=== PATIENT | female | born 1995 | race Caucasian/White ===

== ENCOUNTER → 2022-11-10 | Outpatient (CLI) | payer SELFPAY ==
--- NOTE | 2022-11-10 18:03 | US_ITS ---
STUDY: FIRST TRIMESTER OBSTETRICAL ULTRASOUND REASON FOR EXAM: Female, 27 years old VIABILITY- heavy bleeding with clots LMP: September 08, 2022 TECHNIQUE: Transvaginal TECHNICAL QUALITY: Adequate. PRIOR ULTRASOUND: None. FINDINGS: There is no demonstrated intrauterine gestational sac. There is no demonstrated yolk sac. The placenta is non-visualized. There is no demonstrated embryo ( pole). The estimated gestation age (EGA) by LMP is 9 weeks, 0 days. The estimated date of delivery (SREEKANTH) by LMP is June 15, 2023. The uterus measures 10.6 x 4.9 x 4.5 cm. There is no demonstrated uterine fibroid. The cervix is closed. The right ovary measures 2.9 x 1.9 x 1.5 cm. There is no right ovarian cyst. There is no visualized right adnexal mass or complex lesion. The left ovary measures 3.8 x 2.3 x 1.6 cm. There is 1.9 cm cyst. There is no visualized left adnexal mass or complex lesion. There is mild fluid in the cul de sac. US/Transvaginal w/Preg US IMPRESSION: No intrauterine gestation seen. Left ovarian cyst. Mild free fluid. Electronically Signed: Driss Gifford MD at 18:51 EST ,
[2022-11-10 18:11] LABS: Absolute Lymphocyte Count 1.28 X10^3/uL (0.83-4.51); Absolute Neutrophil Count 10.7 X10^3/uL (2.0-7.7); Basophil# 0.04 X10^3/uL; Basophil% 0.3 % (0-1); Eosinophil# 0.08 X10^3/uL; Eosinophils% 0.6 % (0-5); Hematocrit 39.9 % (37-47); Hemoglobin 13.8 g/dL (12.0-15.0); Lymphocyte # 1.28 X10^3/ul (0.83-4.51); Mean Corp Hgb Conc 34.6 g/dL (32-36); Mean Corpuscular Volume 83.8 fL (81-99); Mean Platelet Vol. 10.5 fl (6.2-12.0); Monocyte# 0.69 X10^3/uL; Monocyte% 5.4 % (0-10); NRBC Flagged by Analyzer 0 % (0-5); Neutrophil # 10.67 X10^3/uL (2.7-7.7); Neutrophil % 83.3 % (47-70); Platelet Count 296 K/mm3 (150-450); RBC Distribution Width CV 12.1 % (11.6-14.6); RBC Distribution Width SD 36.8 fl (35.1-43.9); Red Blood Count 4.76 M/mm3 (4.2-5.4); White Blood Count 12.8 K/mm3 (4.4-11.0)
[2022-11-10 19:20] LABS: hCG Titer Quant., Serum 5855 mIU/mL (1-3)
== END | disposition home or self-care (01) ==
PROVIDERS: Visit Provider Obstetrics & Gynecology
DX: Z34.90 Encounter for supervision of normal pregnancy, unspecified, unspecified trimester (principal); N83.202 Unspecified ovarian cyst, left side
CPT/HCPCS: 36415; 76817; 84702; 85025; 86850; 86900; 86901

== ENCOUNTER → 2022-11-12 | Outpatient (CLI) | payer SELFPAY ==
[2022-11-12 23:01] LABS: hCG Titer Quant., Serum 1280 mIU/mL (1-3)
== END | disposition home or self-care (01) ==
LOC: LAB 19:15
PROVIDERS: Visit Provider Obstetrics & Gynecology
DX: O03.9 Complete or unspecified spontaneous abortion without complication (principal)
CPT/HCPCS: 36415; 84702

== ENCOUNTER → 2022-11-20 | Outpatient (CLI) | payer SELFPAY ==
[2022-11-20 16:30] LABS: hCG Titer Quant., Serum 48 mIU/mL (1-3)
== END | disposition home or self-care (01) ==
PROVIDERS: Referring Provider Obstetrics & Gynecology; Visit Provider Obstetrics & Gynecology
DX: O03.9 Complete or unspecified spontaneous abortion without complication (principal)
CPT/HCPCS: 36415; 84702

== ENCOUNTER → 2023-03-17 | Outpatient (CLI) | payer SELFPAY ==
[2023-03-17 13:32] LABS: Absolute Lymphocyte Count 1.32 X10^3/uL (0.83-4.51); Absolute Neutrophil Count 5.6 X10^3/uL (2.0-7.7); Basophil# 0.03 X10^3/uL; Basophil% 0.4 % (0-1); Eosinophil# 0.09 X10^3/uL; Eosinophils% 1.2 % (0-5); Hematocrit 36.2 % (37-47); Hemoglobin 12.1 g/dL (12.0-15.0); Lymphocyte # 1.32 X10^3/ul (0.83-4.51); Lymphocyte % 17.5 % (19-41); Mean Corp Hgb Conc 33.4 g/dL (32-36); Mean Corpuscular Hgb 28.9 pg (27.0-32.0); Mean Corpuscular Volume 86.4 fL (81-99); Mean Platelet Vol. 11.4 fl (6.2-12.0); Monocyte# 0.46 X10^3/uL; Monocyte% 6.1 % (0-10); NRBC Flagged by Analyzer 0 % (0-5); Neutrophil % 74.1 % (47-70); Platelet Count 255 K/mm3 (150-450); RBC Distribution Width CV 12.4 % (11.6-14.6); RBC Distribution Width SD 38.8 fl (35.1-43.9); Red Blood Count 4.19 M/mm3 (4.2-5.4); White Blood Count 7.6 K/mm3 (4.4-11.0)
[2023-03-17 14:36] LABS: HIV - WCH Non-Reactive (Nonreactive); Hepatitis B Surface Antigen Non-Reactive (Nonreactive); Hepatitis C Antibody Non-Reactive (Nonreactive); Rubella IgG Reactive (Nonreactive); Syphilis Antibodies Non-reactive
[2023-03-20 12:08] LABS: Chlamydia By Nucleic Acid AMP Negative (Negative); Gonococcus By Nucleic Acid AMP Negative (Negative)
== END | disposition home or self-care (01) ==
LOC: PAVLAB 12:36 → LAB 12:59
PROVIDERS: Referring Provider Advanced Practice Midwife; Visit Provider Advanced Practice Midwife
DX: O09.90 Supervision of high risk pregnancy, unspecified, unspecified trimester (principal); Z34.90 Encounter for supervision of normal pregnancy, unspecified, unspecified trimester
CPT/HCPCS: 36415; 85025; 86703; 86762; 86780; 86803; 86850; 86900; 86901; 87086; 87088; 87340; 87491; 87591

== ENCOUNTER → 2023-04-16 | Outpatient (CLI) | payer SELFPAY | END | disposition home or self-care (01) | LOC: LABSPEC 12:21 | PROVIDERS: Referring Provider Advanced Practice Midwife; Visit Provider Advanced Practice Midwife | DX: Z34.90 Encounter for supervision of normal pregnancy, unspecified, unspecified trimester (principal) | CPT/HCPCS: 87070; 87205 ==

== ENCOUNTER → 2023-05-11 | Outpatient (CLI) | payer SELFPAY ==
--- NOTE | 2023-05-11 12:21 | US_ITS ---
INDICATION: anatomy scan EXAMINATION: Ultrasound US OB Greater Than 14 Weeks TECHNIQUE: Transabdominal and endovaginal pelvic ultrasound was performed. COMPARISON: First trimester OB ultrasound November 10, 2022 LMP: September 08, 2022 per prior study. Beta-hCG: Unknown. Provided EGA: October 05, 2023 FINDINGS: INTRAUTERINE GESTATION(s): Single. ESTIMATED GESTATIONAL AGE: 18 weeks, 3 days ESTIMATED DUE DATE (SREEKANTH): October 09, 2023 HEART MOTION is 141 bpm. ESTIMATED WEIGHT: 241 g, +/- 36 g. Percentile 18.7%. BIOPHYSICAL PROFILE (BPP): Not assessed. PRESENTATION: Cephalic PLACENTA: Anterior. There is no placenta previa or abruption. CERVIX: The cervix is closed. Cervical length is 4.5 cm. MATERNAL OVARIES: No adnexal masses. FREE FLUID: None. IMPRESSION: 1. Single live intrauterine in cephalic presentation at this late gestational age of 18 weeks, 3 days. Estimated date of delivery by today''s study is October 09, 2023. 2. Visually normal amniotic fluid volume. 3. Anterior grade 0-1 placenta is not low lying. 4. The cervix is closed. Cervical length is 4.5 cm. 5. Estimated weight is 241 g. Electronically Signed: Enrique Dalton MD at 16:16 EDT Reading Location ID and State: [id number] / Unknown , Service support , INDICATION: anatomy scan EXAMINATION: Ultrasound US OB Greater Than 14 Weeks TECHNIQUE: Transabdominal and endovaginal pelvic ultrasound was performed. COMPARISON: First trimester OB ultrasound November 10, 2022 LMP: September 08, 2022 per prior study. Beta-hCG: Unknown. Provided EGA: October 05, 2023 FINDINGS: INTRAUTERINE GESTATION(s): Single. ESTIMATED GESTATIONAL AGE: 18 weeks, 3 days ESTIMATED DUE DATE (SREEKANTH): October 09, 2023 HEART MOTION is 141 bpm. ESTIMATED WEIGHT: 241 g, +/- 36 g. Percentile 18.7%. BIOPHYSICAL PROFILE (BPP): Not assessed. PRESENTATION: Cephalic PLACENTA: Anterior. There is no placenta previa or abruption. CERVIX: The cervix is closed. Cervical length is 4.5 cm. MATERNAL OVARIES: No adnexal masses. FREE FLUID: None. US/OB Anatomy Scan
== END | disposition home or self-care (01) ==
PROVIDERS: Referring Provider Advanced Practice Midwife; Visit Provider Advanced Practice Midwife
DX: O09.92 Supervision of high risk pregnancy, unspecified, second trimester (principal); Z3A.18 18 weeks gestation of pregnancy
CPT/HCPCS: 76805; 76817

== ENCOUNTER → 2023-07-15 | Outpatient (CLI) | payer SELFPAY ==
[2023-07-15 09:47] LABS: Absolute Lymphocyte Count 1.17 X10^3/uL (0.83-4.51); Absolute Neutrophil Count 7.2 X10^3/uL (2.0-7.7); Basophil# 0.04 X10^3/uL; Basophil% 0.4 % (0-1); Eosinophil# 0.13 X10^3/uL; Eosinophils% 1.4 % (0-5); Hematocrit 32.9 % (37-47); Hemoglobin 11.2 g/dL (12.0-15.0); Lymphocyte # 1.17 X10^3/ul (0.83-4.51); Lymphocyte % 12.8 % (19-41); Mean Corpuscular Hgb 30.4 pg (27.0-32.0); Mean Corpuscular Volume 89.2 fL (81-99); Mean Platelet Vol. 10.5 fl (6.2-12.0); Monocyte% 5.5 % (0-10); NRBC Flagged by Analyzer 0 % (0-5); Platelet Count 198 K/mm3 (150-450); RBC Distribution Width CV 13.1 % (11.6-14.6); Red Blood Count 3.69 M/mm3 (4.2-5.4); White Blood Count 9.1 K/mm3 (4.4-11.0)
[2023-07-15 10:11] LABS: Glucose Challenge Gest 1H 50g 111 mg/dL (70-140)
[2023-07-15 10:47] LABS: HIV - WCH Non-Reactive (Nonreactive); Syphilis Antibodies Non-reactive
== END | disposition home or self-care (01) ==
LOC: PAVLAB 09:17
PROVIDERS: Referring Provider Obstetrics & Gynecology; Visit Provider Obstetrics & Gynecology
DX: O09.90 Supervision of high risk pregnancy, unspecified, unspecified trimester (principal); Z3A.00 Weeks of gestation of pregnancy not specified
CPT/HCPCS: 36415; 82950; 85025; 86703; 86780

== ENCOUNTER → 2023-09-13 | Outpatient (CLI) | payer SELFPAY | END | disposition home or self-care (01) | LOC: LABSPEC 13:40 | PROVIDERS: Referring Provider Obstetrics & Gynecology; Visit Provider Obstetrics & Gynecology | DX: O09.90 Supervision of high risk pregnancy, unspecified, unspecified trimester (principal); Z3A.00 Weeks of gestation of pregnancy not specified | CPT/HCPCS: 87081 ==

== ENCOUNTER → 2023-09-21 | Outpatient (CLI) | payer SELFPAY ==
--- NOTE | 2023-09-21 11:03 | US_ITS ---
STUDY: SECOND AND THIRD TRIMESTER OBSTETRICAL ULTRASOUND REASON FOR EXAM: Female, 27 years old growth LMP: December 29, 2022. TECHNIQUE: Transabdominal TECHNICAL QUALITY: Adequate. PRIOR ULTRASOUND: Comparison is made with prior study dated May 11, 2023. FINDINGS: There is a single intrauterine fetus. The fetus is in a cephalic presentation. There is demonstrated cardiac activity with a heart rate of 171 bpm. There is a normal amniotic fluid volume. The largest amniotic fluid pocket measures 6 cm. The amniotic fluid index (TEENA) is 15.4 cm. The placenta is anterior in location and is not low lying. There are Grade 1 placental changes. The cervix was not measured due to head position The adnexal regions are not visualized. BIOMETRY: BPD: 9.13 cm: 37 weeks, 0 days HC: 33 cm: 37 weeks, 4 days AC: 33.1 cm: 37 weeks, 0 days FL: 7 cm: 36 weeks, 0 days CI: 79.2% FL/BPD: 76.8% FL/HC: FL/AC: 21.2% HC/AC: 1 age by current US: 36 weeks, 6 days. SREEKANTH by current US: October 13, 2023. Estimated weight: 3052 grams, +/- 458 grams, 33.4 %. Age by LMP: 38 weeks, 0 days. SREEKANTH by LMP: October 05, 2023. US/OB Limited With Biometrics IMPRESSION: Single live intrauterine gestation with mean gestational age of 36 weeks and 6 days. Electronically Signed: Peña Hardin MD at 15:14 EST ,
== END | disposition home or self-care (01) ==
LOC: US 11:02
PROVIDERS: Referring Provider Obstetrics & Gynecology; Visit Provider Obstetrics & Gynecology
DX: O26.849 Uterine size-date discrepancy, unspecified trimester (principal); Z3A.00 Weeks of gestation of pregnancy not specified
CPT/HCPCS: 76816

== ENCOUNTER 2023-10-11 09:30 | Inpatient (IN) | payer SELFPAY ==
[2023-10-11] VITALS (15 sets, daily range): BP systolic 112–137; BP diastolic 63–90; PULSE 62–88; RESP 16; TEMP 36.3–36.6; O2SAT 97–99; BMI 27.9
[2023-10-11] MEDS: Lactated Ringers 1,000 ML 200 ML IV (10:00)
[2023-10-11 10:26] LABS: Absolute Lymphocyte Count 1.13 X10^3/uL (0.83-4.51); Absolute Neutrophil Count 10.1 X10^3/uL (2.0-7.7); Basophil# 0.03 X10^3/uL; Basophil% 0.3 % (0-1); Eosinophil# 0.08 X10^3/uL; Eosinophils% 0.7 % (0-5); Hematocrit 37.2 % (37-47); Hemoglobin 12.9 g/dL (12.0-15.0); Lymphocyte # 1.13 X10^3/ul (0.83-4.51); Lymphocyte % 9.5 % (19-41); Mean Corp Hgb Conc 34.7 g/dL (32-36); Mean Corpuscular Hgb 30.5 pg (27.0-32.0); Mean Corpuscular Volume 87.9 fL (81-99); Mean Platelet Vol. 11.6 fl (6.2-12.0); Monocyte# 0.49 X10^3/uL; Monocyte% 4.1 % (0-10); NRBC Flagged by Analyzer 0 % (0-5); Neutrophil # 10.11 X10^3/uL (2.7-7.7); Neutrophil % 84.9 % (47-70); Platelet Count 223 K/mm3 (150-450); RBC Distribution Width CV 13.2 % (11.6-14.6); RBC Distribution Width SD 42.5 fl (35.1-43.9); Red Blood Count 4.23 M/mm3 (4.2-5.4); White Blood Count 11.9 K/mm3 (4.4-11.0)
[2023-10-11 11:11] LABS: Syphilis Antibodies Non-reactive
--- NOTE | 2023-10-11 11:42 | HP.PCM_ITS ---
History and Physical Date of Admission: 10/11/23 Vital Signs 08/10/2309:47 10/05/2309:06 10/11/2309:12 10/11/2309:14 Height 5 ft 1 in 5 ft 1 in 5 ft 1 in 5 ft 1 in BP 120/84 H Intake Visit Reasons: 40 WK OB Service Provider Required: No Is patient in pain?: No Allergies No Known Allergies Allergy (Verified 10/11/23 09:38) Medications multivit-min no.71-iron fum 28 mg-folate no.1 1 mg-dha 300 mg capsule (PNV- [place]) cap PO 11/06/22 [History Confirmed 10/11/23] Last Menstrual Period: 01/04/23 Zika: Zika virus screening: Negative : No PFSH PFSH Medical History Complete Surgical History Hx of section Family History Grandfather Diabetes Lung cancer Social History adopted: No household members: spouse and children number of children: 1 current occupational status: unemployed pets and animals: No history of recent travel: No sexually active: Yes Smoking Status: Never smoker alcohol intake: former details: ocasional but not while substance use type: does not use well-balanced diet: daily or most days caffeine: Yes Type: tea Number of servings: 1 eating out: 1-3 times/week during the past year weight has: remained stable what type of physical activity do you participate in: walking frequency: 3-4 times per week duration: 15-30 minutes/day jerrica/restorationist: Mandaen seatbelt use: always do you feel safe at home: Yes additional social history: - [employer] History 3 Elective abortions Hx Para 1 Spontaneous abortions 1 Hx # Term Pregnancies Ectopic pregnancies Hx # Pregnancies Multiple births # of living children 1 Past Pregnancies Del. Date Name GA/Weeks Outcome Route Bth Weight Infant Gen Labor Lgth Anesthesia Del Locatn Provider FOB 02/16/21 Jose Antonio 41 live - full term 8#1o z Male spinal [facility] Delivery Date: 02/16/21 Last Updated by: Talita Nagel emergency cs due to decels HPI 40 WK OB Details: CLEOPATRA MOTTA is a 28 year old who presents for routine OB visit. she has had regular ctx the last few hours and clear lof, small vb. FHT 130s good fm OB Visit SREEKANTH Calculator Estimated Delivery Date Method Current WG Current Estimate 10/11/23 LMP (Certain) 40w 0d Other Estimates 10/05/23 Ultrasound #1 40w 6d 10/09/23 Conception 40w 2d Expected Delivery Route/Plan TOLAC by 41 weeks, discussed IOL if favorable patient counseled regarding risks/benefits of trial of labor versus repeat . ACOG/uptodate education given to patient. 70 % likelihood of success per calculator TOLAC consent form signed: yes Specific Issue/Plans Covid status: discussed Flu vaccine: discussed Tdap vaccine: [] Rhogam: [] LARC form signed: [] Problem list reviewed and updated with the most current plan of care details and appropriate orders placed. Relevant counseling for the gestational age provided. Continue routine care and follow up unless otherwise noted in visit notes/problem list details Initial Weight: Not Recorded Date -?-?-?-?-?-?-?-?-?-?-?-?- EGA Weight BP Urine Prot -?-?-?-?-?-?-?-?-?-?-?-?- Glucose FHR FuHt Pres Dilation -?-?-?-?-?-?-?-?-?-?-?-?- Effaced St Visit Note 03/17/23-?-?-?-?-?-?-?-?-?-?-?-?- 10w 2d 129 lb 2 oz 102/97976/69 -?-?-?-?-?-?-?-?-?-?-?-?- 150 -?-?-?-?-?-?-?-?-?-?-?-?- KW- SREEKANTH adjusted. JV scanned. 04/16/23-?-?-?-?-?-?-?-?-?-?-?-?- 14w 4d 129 lb 6 oz 122/68 Negative -?-?-?-?-?-?-?-?-?-?-?-?- Negative 145 -?-?-?-?-?-?-?-?-?-?-?-?- KW- PRR. no vb/cramping. US scheduled. having some vaginal irritation-culture done. 05/10/23-?-?-?-?-?-?-?-?-?-?-?-?- 18w 0d 130 lb 2 oz 111/72 Negative -?-?-?-?-?-?-?-?-?-?-?-?- Negative 145 -?-?-?-?-?-?-?-?-?-?-?-?- SM- no vb lof some fm, dicsussion of TOLAC 06/25/23-?-?-?-?-?-?-?-?-?-?-?-?- 24w 4d 136 lb 99/53 -?-?-?-?-?-?-?-?-?-?-?-?- 145 25 -?--?-?-?-?-?-?-?-?-?-?-?- SM- no vb lof ctx feels some lower pelvic pressure 07/26/23-?-?-?-?-?-?-?-?-?-?-?-?- 29w 0d 139 lb 8 oz 95/53 Trace -?-?-?-?-?-?-?-?-?-?-?-?- Negative 142 28 -?-?-?-?-?-?-?-?-?-?-?-?- KW-no lof/vb/ctx. good fm. desires TOLAC. no concerns today 08/10/23-?-?-?-?-?-?-?--?-?-?-?-?- 31w 1d 142 lb 8 oz 103/60 Negative -?-?-?-?-?-?-?-?-?-?-?-?- Negative 150 31 -?-?-?-?-?-?-?-?-?-?-?-?- KW-no lof/vb/ctx. good fm. no concerns today. 08/24/23-?-?-?-?-?-?-?-?-?-?-?-?- 33w 1d 148 lb 2 oz 97/63 Negative -?-?-?-?-?-?-?-?-?-?-?-?- Negative 160 33 -?-?-?-?-?-?-?-?-?-?-?-?- KW- no lof/vb/ctx. good fm. going to [place] 1 week-leaving on sat. travel precautions 09/13/23-?-?-?-?-?-?-?-?-?-?-?-?- 36w 0d 149 lb 4 oz 103/63 Negative -?-?-?-?-?-?-?-?-?-?-?-?- Negative 150 35 Cephalic 1-?-?-?-?-?-?-?-?-?- ?-?-?- 50 -2 JV- TOLAC consent signed. gbs collected. cx very soft today. labor precautions discussed. 09/21/23-?-?-?-?-?-?-?-?-?-?-?-?- 37w 1d 147 lb 8 oz 96/59 Negative -?-?-?-?-?-?-?-?-?-?-?-?- Negative 160 35 Cephalic 1-?-?-?-?-?-?-?-?-?- ?-?-?- SM- no vb lof good fm now was dec over the weekend, discussed exp mgt vs IOL by 41 weeks or rltcs if unfavorable. nj NEWELL ordered today 09/27/23-?-?-?-?-?-?-?-?-?-?-?-?- 38w 0d 147 lb 2 oz 113/66 Negative -?-?-?-?-?-?-?-?-?-?-?-?- Negative 145 37 Cephalic -?-?-?-?-?-?-?-?-?-?-?-?- JV- pt declines exam today. looking back on dating, she thinks that we changed her due date by mistake and it looks as if she is correct. SREEKANTH is 10/11. dates corrected. 10/05/23-?-?-?-?-?-?-?-?-?-?-?-?- 39w 1d 149 lb 2 oz 100/65 Negative -?-?-?-?-?-?-?-?-?-?-?-?- Negative 145 38 Cephalic 3-?-?-?-?-?-?-?-?-?- ?-?-?- 60 -1 Sm- no vb lof good fm no regular ctx discussed IOL next week if no spontaneous ACOG First Trimester First Trimester: Desire for , Alcohol, Illicit/Recreational Drug/Substance Use, Intimate Partner Violence, Barriers to care, Unstable Housing, Communication Barriers, Environmental/Work Hazards, Anticipated Course of Care, Toxoplasmosis Precations, Use of Any medications, Sexual activity, Exercise, Dental Care, Sauna/Hot tub use, Seat Belt use, Childbirth classes/Hospital facilities, , Travel, Indications for Ultrasound and Screening for Aneuploidy Second Trimester Second Trimester: Signs and Symptoms of Labor, Selecting a care provider, Reproductive Life Planning & Contreception, Care Planning, Depression/Anxiety and Intimate Partner Violence; Discussed Tobacco Cessation Third Trimester Third Trimester: Pain Management Plans, Labor support person(s), Immediate Larc, Signs and Symptoms of Preeclampsia, Infant Feeding Yes , Education and Family Medical Leave or Disability Forms ROS Const Reports system reviewed and no additional complaints, except as documented Card Reports system reviewed and no additional complaints, except as documented Resp Reports system reviewed and no additional complaints, except as documented GI Reports system reviewed and no additional complaints, except as documented and Reports nausea Reports system reviewed and no additional complaints, except as documented Musc Reports system reviewed and no additional complaints, except as documented Exam Const General: cooperative, healthy appearing, comfortable and anxious HENWA Head: normal to inspection Nose: external nose normal Face and sinus: normal facial exam Neck Neck: normal visual inspection, full ROM and no lymphadenopathy Thyroid: thyroid normal Chest Chest palpation & inspection: normal inspection of the chest Resp Effort & Inspection: normal respiratory effort GI Inspection: normal to inspection Palpation: soft and other (gravid uterus) Other: infant vertex and appropriate size for gestational age Other: Cervical Exam: /-1 forebag intact Extrem General: pedal edema Coding Level of Care Code OB Routine Diagnoses Hx of section Z98.891 Anemia D64.9 Supervision of high risk , antepartum O09.90 40 weeks gestation of Z3A.40 Weeks of gestation: 40 weeks Active labor at term Assessment and Plan Assessment and Plan (1) Hx of section: Status: Acute Comment: emergency due to decels at 41 weeks in [facility], desires TOLAC. records requested (2) Anemia: Status: Acute Comment: encouraged Fe use (3) Supervision of high risk , antepartum: Status: Acute Comment: PRR , SREEKANTH 10/11/23 surprise PC Jose Antonio, Dandre (4) : Status: Acute Qualifiers: Weeks of gestation: 40 weeks Qualified Code(s): Z3A.40 - 40 weeks gestation of Comment: GBS neg, anatomy nl, declines ntd genetic & carrier testing. (5) Active labor at term: Status: Acute Plan Patient presents IAL, plan expectant management for , pitocin/AROM of forebag PRN if needed. Pain management: open to epidural if needed. GBS neg. Management of any complications: TOLAC I have reviewed the [facility] and made any clinically relevant updates. UPDATE- I have seen the patient and performed any clinically relevant updates to the history and physical exam. Varsha Ramos MD
[2023-10-11] MEDS: LACTATED RINGERS 500 ML 999 ML IV (12:56)
[2023-10-11] MEDS: Lidocaine 1% (20 ml mdv) 20 ML Vial INFILT (13:59)
[2023-10-11] MEDS: Oxytocin 10 UNITS/ML Vial IM (14:00)
[2023-10-11] MEDS: Oxytocin 15 Units/NS 250ml 15 UNITS/250 ML IV.SOLN 83 UNITS IV (14:02)
[2023-10-11] MEDS: Acetaminophen 500 MG Tablet PO (14:48)
--- NOTE | 2023-10-11 15:29 | EX.PCM.OBRPT ---
Assessment & Plan (1) Active labor at term: (2) Uterine size-date discrepancy, third trimester: COMMENT: growth us ordered - nml growth & fluid (3) Hx of section: COMMENT: emergency due to decels at 41 weeks in [facility], desires TOLAC. records requested (4) Supervision of high risk , antepartum: COMMENT: PRR , SREEKANTH 10/11/23 surprise PC Jose Antonio, Dandre (5) Anemia: COMMENT: encouraged Fe use (6) : QUALIFIERS: Weeks of gestation: 40 weeks Qualified Code(s): Z3A.40 - 40 weeks gestation of COMMENT: GBS neg, anatomy nl, declines ntd genetic & carrier testing. (7) , delivered, current hospitalization: COMMENT: SM IAL 40 girl [place] Maternal Data Information SREEKANTH Calculator Estimated Delivery Date Method Current WG Current Estimate 10/11/23 LMP (Certain) 40w 0d Other Estimates 10/05/23 Ultrasound #1 40w 6d 10/09/23 Conception 40w 2d Vaginal Delivery Operative Information Date of Procedure: 10/11/23 Pre-Operative Diagnosis: see a/p diagnoses Post-Operative Diagnosis: same Surgery / Procedure Performed: Type of Anesthesia: None Special Medications: none Estimated Blood Loss: 400 Fluids Replaced: crystalloid Findings Description of Procedure: Patient began pushing and delivered the head in the HARVINDER presentation. The head was delivered atraumatically . The anterior and posterior shoulders delivered without complication followed by the rest of the and the was placed on the maternal abdomen. Delayed cord clamping was employed for approximately 60 seconds. Cord was clamped and cut and gentle traction was applied to the cord and the placenta delivered spontaneously immediately following it was noted to be intact with three-vessel cord. The perineum and vagina were inspected and injected with lidocaine and noted to have a first degree perineal laceration which was repaired in the usual fashion with 3-0 vicryl rapide. . EBL was 400 cc. Patient and tolerated delivery well. Amniotic Fluid Description: Clear Placental Delivery Description: Spontaneous Placenta Disposition: [facility] Cord Vessel Description: 3 Vessels Cord Entanglement: None Delayed Cord Clamping: Yes Post Vaginal Delivery Medications Given After Delivery: IV Pitocin Episiotomy Description: None Complication Complications: None Multi Select Codes Urinary/Genital Urinary/Genital CPT Codes: 82788 delivery [facility]
--- NOTE | 2023-10-11 15:31 | DCINST_ITS ---
Discharge Instructions Diet Discharge Diet: No restrictions Activity Discharge Activity: Return to Normal Activity, May Not Drive (while taking narcotic pain medications.) and May Shower May resume sexual activity in: 4-6 weeks Dressing / Incision Call your doctor if your incision/area has: Continuous Slow Oozing, Sudden Increased Bleeding, Increased Pain/ Swelling, Increased Redness and Foul Smelling Discharge Follow Up Care Please Follow Up With: Varsha Ramos MD When: Call [phone] to make an appointment with your doctor in 6 weeks. If you had elevated blood pressure or 4th degree laceration, you will need to be seen in 2 weeks. Test Results: Test results from this visit will be discussed in further detail at your follow- up appointment, if applicable. Discharge Plan Admission Admit Date/Time: 10/11/23 09:30 Attending Provider: Varsha Ramos Primary Care Provider: Care Physician,Jacquie Primary Discharge Orders/Prescriptions Prescriptions: No Action PNV-[place] 28-1-300 mg capsule PO Referrals / Follow Up: Care Physician,No Primary [Primary Care Provider] - Disposition Disposition (needs filled in before D/C Order can be placed): Home, Self Care
[2023-10-11] MEDS: Naproxen 500 MG Tablet PO (20:32)
[2023-10-12] VITALS (8 sets, daily range): BP systolic 95–123; BP diastolic 48–75; PULSE 60–74; RESP 15–16; TEMP 36.3–36.4; O2SAT 96–99
[2023-10-12] MEDS: Acetaminophen 500 MG Tablet 1000 MG PO ×2 (01:07→12:57)
--- NOTE | 2023-10-12 12:36 | PCM.PN.OB ---
Subjective Subjective Patient doing well without complaints. Tolerating PO. Ambulating and voiding without difficulty. feeding well. Denies chest pain, shortness of breath, calf pain/swelling, fevers, chills, lightheadedness. Objective Data Objective Data Vital Signs: Vital Signs Temp Pulse Resp BP Pulse Ox O2 Del Method 97.3 F L 69 16 95/48 L 96 Room Air 10/12/23 08:55 10/12/23 09:03 10/12/23 08:55 10/12/23 09:03 10/12/23 03:46 10/12/23 03:46 Oxygen Delivery Method Room Air Weight: 148 lb Body Mass Index (BMI) 27.9 Intake & Output: Intake and Output for Last 24 Hours 10/10/23 10/11/23 10/12/23 23:59 23:59 23:59 Intake Total 1446.67 / 1446.67 Output Total 2800 / 2800 500 / 500 Balance -1353.33 / -1353.33 -500 / -500 Lab / Micro Data 10/11/23 10:00 ROS Constitutional Constitutional: Reports systems reviewed and no addt'l complaints, except as documented Cardiovascular Cardiovascular: Reports systems reviewed and no addt'l complaints, except as documented Respiratory/Chest Respiratory/Chest: Reports systems reviewed and no addt'l complaints, except as documented Gastrointestinal Gastrointestinal: Reports systems reviewed and no addt'l complaints, except as documented Physical Exam Const alert, oriented x3 and no apparent distress HEENT Head and Scalp: atraumatic Resp normal respiratory effort GI soft to palpation and non-tender Bimanual Exam - Vag & Uterus: uterus non-tender Uterus Palpation: uterus fundus firm (below Umbilicus) Assessment & Plan (1) , delivered, current hospitalization: COMMENT: IAL 40 girl [place]ay PLAN: Plan s/p PPD # 1 1. routine post delivery care 2. breast feeding- support given 3. rh positive 4. rubella immune
[2023-10-12] MEDS: Senna/Docusate Sodium 1 Tablet PO (12:57)
== END 2023-10-12 16:20 | disposition home or self-care (01) | DRG 807 ==
PROVIDERS: Admitting Provider Registered Nurse; Referring Provider Obstetrics & Gynecology; Visit Provider Obstetrics & Gynecology
DX: O34.219 Maternal care for unspecified type scar from previous cesarean delivery (principal); Z37.0 Single live birth; O70.0 First degree perineal laceration during delivery; O99.02 Anemia complicating childbirth; Z3A.40 40 weeks gestation of pregnancy; Z87.59 Personal history of other complications of pregnancy, childbirth and the puerperium
CPT/HCPCS: 59025; 59050; 85025; 86780; 86850; 86900; 86901; 99221; J7120; G0378

== ENCOUNTER → 2023-11-19 | Outpatient (CLI) | payer SELFPAY ==
[2023-11-25 18:12] LABS: HPV Reflexed? NOT INDICATED
== END | disposition home or self-care (01) ==
PROVIDERS: Referring Provider Obstetrics & Gynecology; Visit Provider Obstetrics & Gynecology
DX: Z12.4 Encounter for screening for malignant neoplasm of cervix (principal)
CPT/HCPCS: 88175; G0145

== ENCOUNTER → 2025-10-12 | Outpatient (CLI) | payer SELFPAY ==
--- OUTSIDE RECORDS SUMMARY | 2025-10-12 15:29 | XMS RPT_ITS | CCD ---
Author Organization [facility] Care Team Providers Care Lastex Thread Winder Name Role Phone Care Physician, No Primary Primary Care Provider Unavailable Care Physician, No Primary Referring Provider Un available Dr. Teresa Short Attending Provider [phone] Care Physician, No Primary Primary Care Provider Unavailable Care Physician, No Primary Referring Provider Un available JD Beaulieu Attending Provider [phone] Dr. Vasrha Ramos Attending Provider [phone] Care Physician, No Primary Primary Care Provider Unavailable Care Physician, No Primary Referring Provider Un available JD Beaulieu Attending Provider [phone]) Care Physician, No Primary Primary Care Provider Unavailable Care Physician, No Primary Referring Provider Un available Dr. Varsha Ramos Attending Provider [phone] JD Beaulieu Attending Provider 1(330) Dr. Teresa Short Attending Provider [phone] JD Vaz Admit Provider [phone] JD Vaz Other Provider Dr. Varsha Ramos Referring Provider [phone] Dr. Varsha Ramos Other Provider [phone] Care Physician, No Primary Primary Care Provider Unavailable Care Physician, No Primary Referring Provider Un available JD Beaulieu Attending Provider [phone](330) Dr. Varsha Ramos Attending Provider [phone] Care Physician, No Primary Primary Care Unava ilable Angelica Beaulieu Attending Unavailable Angelica Beaulieu Referring Unavailable Care Physician, No Primary Primary Care Unava ilable Angelica Beaulieu Referring Unavailable Angelica Beaulieu Attending Unavailable Care Physician, No Primary Primary Care Unava ilable Care Physician, No Primary Referring Unava ilable Angelica Beaulieu Attending Unavailable Care Physician, No Primary Primary Care Unava ilable Care Physician, No Primary Referring Unava ilable Angelica Beaulieu Attending Unavailable Care Physician, No Primary Primary Care Unava ilable Marcanthony, Varsha Referring Unavailable Marcanthony, Varsha Attending Unavailable Marcanthony, Varsha Attending Unavailable Marcanthony, Varsha Referring Unavailable Care Physician, No Primary Primary Care Unava ilable Marcanthony, Varsha Referring Unavailable Vaz, Arianne Admitting Unavailable Marcanthony, Varsha Attending Unavailable Care Physician, No Primary Primary Care Unava ilable Vande Velde, Teresa Referring Unavailabl e Vande Velde, Teresa Attending Unavailabl e Care Physician, No Primary Primary Care Unava ilable Care Physician, No Primary Primary Care Unava ilable Marcanthony, Varsha Referring Unavailable Marcanthony, Varsha Attending Unavailable Vande Velde, Teresa Attending Unavailabl e Care Physician, No Primary Primary Care Unava ilable Care Physician, No Primary Referring Unava ilable Care Physician, No Primary Primary Care Unava ilable Care Physician, No Primary Referring Unava ilable Marcanthony, Varsha Attending Unavailable Marcanthony, Varsha Attending Unavailable Care Physician, No Primary Primary Care Unava ilable Care Physician, No Primary Referring Unava ilable Care Physician, No Primary Primary Care Unava ilable Care Physician, No Primary Referring Unava ilable MarcanthVarsha watkins Attending Unavailable Care Physician, No Primary Referring Unava ilable Care Physician, No Primary Primary Care Unava ilable Angelica Beaulieu Attending Unavailable Care Physician, No Primary Primary Care Unava ilable Care Physician, No Primary Referring Unava ilable Angelica Beaulieu Attending Unavailable Care Physician, No Primary Primary Care Unava ilable Marcanthony, Varsha Consulting Unavailable Marcanthony, Varsha Referring Unavailable Vaz, Arianne Admitting Unavailable Marcanthony, Varsha Attending Unavailable Vaz, Arianne Consulting Unavailable Care Physician, No Primary Primary Care Unava ilable Care Physician, No Primary Referring Unava ilable Angelica Beaulieu Attending Unavailable Vande Velde, Teresa Attending Unavailabl e Care Physician, No Primary Primary Care Unava ilable Care Physician, No Primary Referring Unava ilable Marcanthjune, Varsha Attending Unavailable Care Physician, No Primary Primary Care Unava ilable Care Physician, No Primary Referring Unava ilable Care Physician, No Primary Referring Unava ilable MarcanthonyVarsha Attending Unavailable Care Physician, No Primary Primary Care Unava ilable Care Physician, No Primary Primary Care Unava ilable Care Physician, No Primary Referring Unava ilable Varsha Ramos Attending Unavailable Care Physician, No Primary Primary Care Unava ilable Angelica Beaulieu Referring Unavailable Angelica Beaulieu Attending Unavailable Medications Current Medications Medication Drug Class(es) Dates Sig (Normalized) Sig (Original) Mv-Mins 40-Csxe-Hpkfd No.1-Dha (Pnv-[place]) 28-1-300 mg capsule (11 sources) Start: 11-06-2022 take 1 capsule by mouth once Mv-Mins 33-Qiuv-Ovflg No.1-Dha (Pnv-[place]) 28-1-300 mg capsule Active CAP PO November 06, 2022 1:00am Start: 11-06-2022 take 1 capsule by mouth once M v-Mins 46-Ebtz-Ndxbd No.1-Dha (Pnv-[place]) 28-1-300 mg capsule Active CAP PO November 06, 2022 12:00am Problems Active Problems Problem Classification Problem Date Documented Date Episodic/Chronic Deficiency and other anemia (11 sources) Anemia; Translations: [Anemia, unspecified] 11-06-2022 Episodic Deficiency and other anemia (20 sources) Anemia, unspecified; Translations: [Anemia, unspecified] Onset: 10-05-2023 03-17-2023 Episodic Other complications of (11 sources) High risk ; Translations: [Supervision of high risk , unspecified, unspecified trimester] 11-06-2022 Episodic Other complications of (20 sources) Supervision of high risk , unspecified, unspecified trimester; Translations: [Supervision of unspecified high-risk ] Onset: 10-05-2023 03-17-2023 Episodic Other complications of (3 sources) Uterine size for dates discrepancy; Translations: [Uterine size-date discrepancy, third trimester] 09-21-2023 Episodic Other complications of (11 sources) Uterine size-date discrepancy, third trimester; Translations: [Uterine size date discrepancy, antepartum condition or complication] Onset: 10-05-2023 09-21-2023 Episodic Other and delivery including normal (20 sources) ; Translations: [Encounter for supervision of normal , unspecified, unspecified trimester] Onset: 04-21-2023 11-06-2022 Episodic Other screening for suspected conditions (not mental disorders or infectious disease) (1 source) Encounter for screening for malignant neoplasm of cervix; Translations: [Encounter for screening for malignant neoplasm of cervix] Onset: 11-24-2023 Episodic Previous (5 sources) Vaginal delivery following previous section; Translations: [Maternal care for unspecified type scar from previous delivery] Onset: 10-21-2023 10-11-2023 Episodic Residual codes; unclassified (20 sources) History of uterine scar from previous surgery; Translations: [Other postprocedural status] Onset: 10-05-2023 03-17-2023 Episodic Residual codes; unclassified (1 source) 40 weeks gestation of ; Translations: [40 weeks gestation of ] Onset: 10-21-2023 Episodic Spontaneous (14 sources) with abortive outcome; Translations: [Complete or unspecified spontaneous without complication] 11-11-2022 Episodic Unclassified (6 sources) Normal labor; Translations: [Active labor at term] 10-12-2023 Past or Other Problems Problem Classification Problem Date Documented Da te Episodic/Chronic Other complications of (1 source) Uterine size-date discrepancy, unspecified trimester; Translations: [Uterine size-date discrepancy, unspecified trimester] Onset: 09-27-2023 Episodic Residual codes; unclassified (1 source) 39 weeks gestation of ; Translations: [39 weeks gestation of ] Onset: 10-05-2023 Episodic Residual codes; unclassified (1 source) 38 weeks gestation of ; Translations: [38 weeks gestation of ] Onset: 09-27-2023 Episodic Residual codes; unclassified (1 source) 36 weeks gestation of ; Translations: [36 weeks gestation of ] Onset: 09-13-2023 Episodic Residual codes; unclassified (1 source) 34 weeks gestation of ; Translations: [34 weeks gestation of ] Onset: 08-24-2023 Episodic Residual codes; unclassified (1 source) 32 weeks gestation of ; Translations: [32 weeks gestation of ] Onset: 08-10-2023 Episodic Residual codes; unclassified (1 source) 25 weeks gestation of ; Translations: [25 weeks gestation of ] Onset: 07-26-2023 Episodic Residual codes; unclassified (1 source) 18 weeks gestation of ; Translations: [18 weeks gestation of ] Onset: 05-10-2023 Episodic Residual codes; unclassified (1 source) 15 weeks gestation of ; Translations: [15 weeks gestation of ] Onset: 04-16-2023 Episodic Results Test Name Value Interpretation Reference Range Facility PAP I-G w/rfx hrHPV-Aptimaon 11-25-2023 ADEQ Comment Normal . [facility] Comment on above: Order Comment: Speci men Comment: [id number] Specimen Comment: Source.............Cervix Specimen Comment: No. of containers..01 ThinPrep Vial Result Comment: Sati sfactory for evaluation. Endocervical and/or squamous metaplastic cells (endocervical component) are present. Performed By: #### L 7400.0353 #### [facility] [address] [place], [place], [id number] COMM . Normal . [facility] Comment on above: Order Comment: Speci men Comment: [id number] Specimen Comment: Source.............Cervix Specimen Comment: No. of containers..01 ThinPrep Vial Performed By: #### L 7400.0353 #### [facility] [address] [place], [place], [id number] COMMENT Comment Normal . [facility] Comment on above: Order Comment: Speci men Comment: [id number] Specimen Comment: Source.............Cervix Specimen Comment: No. of containers..01 ThinPrep Vial Result Comment: This liquid based ThinPrep(R) pap test was screened with the use of an image guided system. Performed By: #### L 7400.0353 #### [facility] [address] [place], [place], [address] DIAG Comment Normal . [facility] Comment on above: Order Comment: Speci men Comment: [id number] Specimen Comment: Source.............Cervix Specimen Comment: No. of containers..01 ThinPrep Vial Result Comment: NEGA TIVE FOR INTRAEPITHELIAL LESION OR MALIGNANCY. Performed By: #### L 7400.0353 #### [facility] [address] [place], [place], [id number] HPV RFLX Comment Normal . [facility] Comment on above: Order Comment: Speci men Comment: [id number] Specimen Comment: Source.............Cervix Specimen Comment: No. of containers..01 ThinPrep Vial Result Comment: The HPV DNA reflex criteria were not met with this specimen result therefore, no HPV testing was performed. Performed at: [address] [id number] Animal Scientist: Ismael Neff MD, Phone: [phone] Performed at: [address] [id number] Animal Scientist: Sadaf Hernandez MD, Phone: [phone] Performed By: #### L 7400.0353 #### [facility] [address] [place], [place], [id number] PAPSMR Comment Normal . [facility] Comment on above: Order Comment: Speci men Comment: [id number] Specimen Comment: Source.............Cervix Specimen Comment: No. of containers..01 ThinPrep Vial Result Comment: The Pap smear is a screening test designed to aid in the detection of premalignant and malignant conditions of the uterine cervix. It is not a diagnostic procedure and should not be used as the sole means of detecting cervical cancer. Both false-positive and false-negative reports do occur. Performed By: #### L 7400.0353 #### [facility] [address] [place], [place], [id number] PERFORM Comment Normal . [facility] Comment on above: Order Comment: Speci men Comment: [id number] Specimen Comment: Source.............Cervix Specimen Comment: No. of containers..01 ThinPrep Vial Result Comment: Pamela Crespo, Adult Care Provider (ASCP) Performed By: #### L 7400.0353 #### [facility] [address], [address] Switchboard Wire Worker Helper Office Visit Reporton 11-19-2023 Switchboard Wire Worker Helper Office Visit Report [facility] [address] [place] [address] OFFICE VISIT Date of Service: 11/19/23 MR#: [id number] Acct: [id number] Name: CLEOPATRA MOTTA Rep #: [id number] : 1995 Provider: Dr. Varsha calvert MD Age/Sex: 28/F Location: [facility] Status: Signed Intake Vital Signs 10/11/23 09:40 11/19/23 10:27 11/19/23 10:27 Height 5 ft 1 in 5 ft 1 in 5 ft 1 in Weight: 130 lb BMI 24.5 BP 100/64 Blood Pressure Location Lt brachial Position Sitting Intake Visit Reasons: visit (obstetrics) Diesel Inspector Required: No Accompanied by: Self Is patient in pain?: No Feel stressed/tense/nervou s/anxious/difficulty sleeping: only a little Allergies No Known Allergies Allergy (Verified 11/19/23 10:26) Medications multivit-min no.71-iron fum 28 mg-folate no.1 1 mg-dha 300 mg capsule (PNV-[place]) cap PO 11/06/22 [History Confirmed 11/19/23] PFSH Medical History Complete Surgical History Hx of section Family History Grandfather Diabetes Lung cancer Social History adopted: No household members: spouse and children number of children: 1 current occupational status: unemployed pets and animals: No history of recent travel: No sexually active: Yes Smoking Status: Never smoker alcohol intake: former details: ocasional but not while substance use type: does not use well-balanced diet: daily or most days caffeine: Yes Type: tea Number of servings: 1 eating out: 1-3 times/week during the past year weight has: remained stable what type of physical activity do you participate in: walking frequency: 3-4 times per week duration: 15-30 minutes/day jerrica/yazidism: Holiness seatbelt use: always do you feel safe at home: Yes additional social history: - [employer] History 3 Elective abortions Hx Para 2 Spontaneous abortions 1 Hx # Term Pregnancies Ectopic pregnancies Hx # Pregnancies Multiple births # of living children 2 Past Pregnancies Del. Date Name GA/Weeks Outcome Route Bth Weight Gen Labor Lgth Anesthesia Del Locatn Provider FOB 02/16/21 Jose Antonio 41 live - full term 8#1oz Male spin Formerly named [facility] 10/11/23 Lashay 40 live - full term Female [facility] Delivery Date: 02/16/21 Last Updated by: Talita Nagel emergency cs due to decels Delivery Date: 10/11/23 Last Updated by: Earline Anne RN see problem list for complications, and IAL Depression Screen PHQ-2/9 PHQ-2 Over the last 2 weeks, how often have you been bothered by any of the following problems? 1. Little interest or pleasure in doing things: not at all 2. Feeling down, depressed, or hopeless: not at all Total score: 0 Post HPI Routine Follow-Up: Details: CLEOPATRA MOTTA is a 28 year old who presents for her post visit. Feeding: Breast Menses resumed: No [place] since delivery: No Emotional Support: Yes ROS Const Reports system reviewed and no additional complaints, except as documented GI Reports system reviewed and no additional complaints, except as documented, Denies bloating, Denies constipation, Denies nausea and Denies vomiting Reports system reviewed and no additional complaints, except as documented, Denies abnormal vaginal bleeding, Denies pelvic pain, Denies sexual dysfunction, Denies urinary incontinence, Denies urinary hesitancy, Denies urinary urgency and Denies vaginal discharge Skin/Breast Reports system reviewed and no additional complaints, except as documented and Reports as per HPI Psych Reports as per HPI Exam Const General: cooperative, healthy appearing, comfortable and no acute distress HENMT Head: normal to inspection Neck Neck: normal visual inspection and no lymphadenopathy Thyroid: thyroid normal Chest Breast inspection: normal inspection of the breasts and normal inspection of the axillae Breast palpation: normal palpation of the breasts and normal palpation of the axillae Resp Effort Inspection: normal respiratory effort GI Inspection: normal to inspection Palpation: soft, no hepatosplenomegaly and nontender General: bladder normal to palpation External Female Exam: normal external appearance and normal appearance of the urethra Urethra: normal appearance of the urethra Speculum Exam - Vagina: normal appearance of the vagina and normal vaginal discharge Speculum Exam - Cervix: normal (more content not included)... Normal [facility] Absolute lymphocyte countOrd ered By: Arianne Vaz on 10-11-2023 Lymphocytes Auto (Unsp spec) [#/Vol] 1.13 10*3/uL 0.83-4.51 [facility] Automated blood hematocrit ( percentage)Ordered By: Arianne Vaz on 10-11-2023 Hematocrit (Bld) [Volume fraction] 37.2 % Normal 37-47 [facility] Comment on above: Performed By: #### B TS, L100.0100 #### [facility] [address] [place], [address] Basophil percentageOrdered B y: Arianne Vaz on 10-11-2023 Basophils/100 WBC (Bld) 0.3 % Normal 0-1 [facility] Comment on above: Performed By: #### B TS, L100.0100 #### [facility] [address] [place], [address] Eosinophils/100 WBC (Bld) 0.7 % Normal 0-5 [facility] Comment on above: Performed By: #### B TS, L100.0100 #### [facility] [address] [place], [address] Neutrophils/100 WBC (Bld) 84.9 % High 47-70 [facility] Comment on above: Performed By: #### Joshua OCONNELL, L100.0100 #### [facility] [address] [place], [address] WBC (Bld) [#/Vol] 11.9 10*3/uL High 4.4-11.0 [facility] Comment on above: Performed By: #### Joshua OCONNELL, L100.0100 #### [facility] [address] [place], [address] Neutrophils (Bld) [#/Vol] 10.1 10*3/uL 2.0-7.7 [facility] Blood erythrocytes count (nu mber/volume)Ordered By: Arianne Vaz on 10-11-2023 RBC (Bld) [#/Vol] 4.23 10*6/uL Normal 4.2-5.4 [facility] Comment on above: Performed By: #### Joshua OCONNELL, L100.0100 #### [facility] [address] [place], [address] Blood hemoglobin measurement (mass/volume)Ordered By: Arianne Vaz on 10-11-2023 Hemoglobin (Bld) [Mass/Vol] 12.9 g/dL Normal 12.0-15.0 [facility] Comment on above: Performed By: #### Joshua OCONNELL, L100.0100 #### [facility] [address] [place], [address] Blood lymphocytes/100 leukoc ytesOrdered By: Arianne Vaz on 10-11-2023 Lymphocytes/100 WBC (Bld) 9.5 % Low 19-41 [facility] Comment on above: Performed By: #### Joshua OCONNELL, L100.0100 #### [facility] [address] [place], [address] Blood monocytes/100 leukocyt esOrdered By: Arianne Vaz on 10-11-2023 Monocytes/100 WBC (Bld) 4.1 % Normal 0-10 [facility] Comment on above: Performed By: #### Joshua OCONNELL, L100.0100 #### [facility] [address] [place], [address] Blood platelet mean volumeOr dered By: Arianne Vaz on 10-11-2023 Platelet mean volume (Bld) [Entitic vol] 11.6 fL Normal 6.2-12.0 [facility] Comment on above: Performed By: #### Joshua OCONNELL, L100.0100 #### [facility] [address] [place], [address] CBC W/Diff, Automatedon 09-24 Absolute Lymph 1.13 X10 3/uL Normal 0.83-4.51 [facility] Comment on above: Performed By: #### Joshua OCONNELL, L100.0100 #### [facility] [address] [place], [address] Absolute Neut 10.1 X10 3/uL High 2.0-7.7 [facility] Comment on above: Performed By: #### Joshua OCONNELL, L100.0100 #### [facility] [address] [place], [address] IG% 0.500 Normal 0.0-0.9 [facility] Comment on above: Result Comment: IG% - Immature Granulocytes (promyelocytes, myelocytes and metamyelocytes) > 1% indicates that a LEFT SHIFT is Present. Performed By: #### Joshua OCONNELL, L100.0100 #### [facility] [address] [place], [address] Nucleated RBC (Bld) [#/Vol] 0 10*3/uL Normal 0-5 [facility] Comment on above: Performed By: #### Joshua OCONNELL, L100.0100 #### [facility] [address] [place], [address] RDW SD 42.5 fl Normal 35.1-43.9 [facility] Comment on above: Performed By: #### B TS, L100.0100 #### [facility] [address], [address] CBC W/Diff, AutomatedOrdered By: Arianne Vaz on 10-11-2023 Erythrocyte distribution width (RBC) [Ratio] 13.2 % Normal 11.6-14.6 [facility] Comment on above: Performed By: #### Joshua OCONNELL, L100.0100 #### [facility] [address], [address] MCH (RBC) [Entitic mass] 30.5 pg Normal 27.0-32.0 [facility] Comment on above: Performed By: #### Joshua OCONNELL, L100.0100 #### [facility] [address] [place], [place], [address] Determination of erythrocyte mean corpuscular volume (MCV)Ordered By: Arianne Vaz on 10-11-2023 MCV (RBC) [Entitic vol] 87.9 fL Normal 81-99 [facility] Comment on above: Performed By: #### Joshua TS, L100.0100 #### [facility] [address], [address] Discharge Instructionon 09-24 Discharge Instruction [facility] Records Department [address] [address] Instructions for Home/Discharge Instructions 10/11/23 1531 MR#: [id number] Acct: [id number] Name: CLEOPATRA MOTTA Rep #: [id number] : 1995 28 From: Varsha Ramos MD PCP: Care Physician,No Primary Status:ADM IN Discharge Instructions Diet Discharge Diet: No restrictions Activity Discharge Activity: Return to Normal Activity, May Not Drive (while taking narcotic pain medications.) and May Shower May resume sexual activity in: 4-6 weeks Dressing / Incision Call your doctor if your incision/area has: Continuous Slow Oozing, Sudden Increased Bleeding, Increased Pain/ Swelling, Increased Redness and Foul Smelling Discharge Follow Up Care Please Follow Up With: Varsha Ramos MD When: Call [phone] to make an appointment with your doctor in 6 weeks. If you had elevated blood pressure or 4th degree laceration, you will need to be seen in 2 weeks. Test Results: Test results from this visit will be discussed in further detail at your follow-up appointment, if applicable. Discharge Plan Admission Admit Date/Time: 10/11/23 09:30 Attending Provider: Varsha Ramos Primary Care Provider: Care Physician,No Primary Discharge Orders/Prescriptions Prescriptions: No Action PNV-[place] 28-1-300 mg capsule PO Referrals / Follow Up: Care Physician,No Primary [Primary Care Provider] - Disposition Disposition (needs filled in before D/C Order can be placed): Home, Self Care 10/11/23 1532 Varsha Ramos MD CC: No Primary Care Physician Signed Normal [facility] L509.8000on 10-11-2023 Syphilis Abs Non-Reactive Normal [facility] Comment on above: Performed By: #### L 509.8000 #### [facility] [address] [place], [place], [id number] Laboratory - Hematology and Cell countsOrdered By: Arianne Vaz on 10-11-2023 Erythrocyte distribution width (RBC) [Entitic vol] 42.5 fL 35.1-43.9 [facility] Immature granulocytes/100 WBC (Bld) 0.500 % 0.0-0.9 [facility] Comment on above: IG% - Immature Granu locytes (promyelocytes, myelocytes and metamyelocytes) > 1% indicates that a LEFT SHIFT is Present. Nucleated RBC/100 WBC (Bld) [Ratio] 0 % 0-5 [facility] MCHC [Mass/volume] by Automa uri countOrdered By: Arianne Vaz on 10-11-2023 MCHC (RBC) [Mass/Vol] 34.7 g/dL Normal 32-36 [facility] Comment on above: Performed By: #### B TS, L100.0100 #### [facility] [address] [place], [address] Switchboard Wire Worker Helper Office Visit Reporton 10-11-2023 Switchboard Wire Worker Helper Office Visit Report [facility] [address] [place] [address] OFFICE VISIT Date of Service: 10/11/23 MR#: [id number] Acct: [id number] Name: CLEOPATRA MOTTA Rep #: [id number] : 1995 Provider: Dr. Varsha calvert MD Age/Sex: 28/F Location: [facility] Status: Signed Intake Vital Signs 08/10/23 09:47 10/05/23 09:06 10/11/23 09:12 10/11/23 09:14 Height 5 ft 1 in 5 ft 1 in 5 ft 1 in 5 ft 1 in BP 120/84 H Intake Visit Reasons: 40 WK OB Diesel Inspector Required: No Is patient in pain?: No Allergies No Known Allergies Allergy (Verified 10/11/23 09:38) Medications multivit-min no.71-iron fum 28 mg-folate no.1 1 mg-dha 300 mg capsule (PNV-[place]) cap PO 11/06/22 [History Confirmed 10/11/23] Last Menstrual Period: 01/04/23 Zika: Zika virus screening: Negative : No PFSH PFSH Medical History Complete Surgical History Hx of section Family History Grandfather Diabetes Lung cancer Social History adopted: No household members: spouse and children number of children: 1 current occupational status: unemployed pets and animals: No history of recent travel: No sexually active: Yes Smoking Status: Never smoker alcohol intake: former details: ocasional but not while substance use type: does not use well-balanced diet: daily or most days caffeine: Yes Type: tea Number of servings: 1 eating out: 1-3 times/week during the past year weight has: remained stable what type of physical activity do you participate in: walking frequency: 3-4 times per week duration: 15-30 minutes/day jerrica/yazidism: Holiness seatbelt use: always do you feel safe at home: Yes additional social history: - [employer] History 3 Elective abortions Hx Para 1 Spontaneous abortions 1 Hx # Term Pregnancies Ectopic pregnancies Hx # Pregnancies Multiple births # of living children 1 Past Pregnancies Del. Date Name GA/Weeks Outcome Route Bth Weight Infant Gen Labor Lgth Anesthesia Del Locatn Provider FOB 02/16/21 Jose Antonio 41 live - full term 8#1oz Male spin al [facility] Delivery Date: 02/16/21 Last Updated by: Talita Nagel emergency cs due to decels HPI 40 WK OB Details: CLEOPATRA MOTTA is a 28 year old who presents for routine OB visit. she has had regular ctx the last few hours and clear lof, small vb. FHT 130s good fm OB Visit SREEKANTH Calculator Estimated Delivery Date Method Current WG Current Estimate 10/11/23 LMP (Certain) 40w 0d Other Estimates 10/05/23 Ultrasound #1 40w 6d 10/09/23 Conception 40w 2d Expected Delivery Route/Plan TOLAC by 41 weeks, discussed IOL if favorable patient counseled regarding risks/benefits of trial of labor versus repeat . ACOG/uptodate education given to patient. 70 % likelihood of success per calculator TOLAC consent form signed: yes Specific Issue/Plans Covid status: discussed Flu vaccine: discussed Tdap vaccine: [] Rhogam: [] LARC form signed: [] Problem list reviewed and updated with the most current plan of care details and appropriate orders placed. Relevant counseling for the gestational age provided. Continue routine care and follow up unless otherwise noted in visit notes/problem list details Initial Weight: Not Recorded Date -???-???-???-???-???- ???-???-???-???-???-? ??-???- EGA Weight BP Urine Prot -???-???-???-???-???- ???-???-???-???-???-? ??-???- Glucose FHR FuHt Pres Dilation -???-???-???-???-???- ???-???-???-???-???-? ??-???- Effaced St Visit Note 03/17/23 -???-???-???-???-???- ???-???-???-???-???-? ??-???- 10w 2d 129 lb 2 oz 102/69 102/69 -???-???-???-???-???- ???-???-???-???-???-? ??-???- 150 -???-???-???-???-???- ???-???-???-???-???-? ??-???- KW- SREEKANTH adjusted. JV scanned. 04/16/23 -???-???-???-???-???- ???-???-???-???-???-? ??-???- 14w 4d 129 lb 6 oz 122/68 Negative -???-???-???-???-???- ???-???-???-???-???-? ??-???- Negative 145 -???-???-???-???-???- ???-???-???-???-???-? ??-???- KW- PRR. no vb/cramping. US scheduled. having some vaginal irritation-culture done. 05/10/23 -???-???-???-???-???- ???-???-???-???-???-? ??-???- 18w 0d 130 lb 2 oz 111/72 Negative -???-???-???-???-???- ???-???-???-???-???-? ??-???- Negative 145 -???-???-???-???-???- ???-???-???-???-???-? ??-???- SM- no vb lo f some fm, dicsussion of TOLAC 06/25/23 -???-???-???-???-???- ???-???-???-???-???-? ??-???- 24w 4d 136 lb 99 (more content not included)... Normal [facility] Operative Reporton 3 Operative Report [facility] Medical Records Department [address] [place] [id number] Operative Report 10/11/23 1529 MR#: [id number] Acct: [id number] Name: CLEOPATRA MOTTA Rep #: [id number] : 1995 28 From: Varsha Ramos MD PCP: Care Physician,No Primary Status:ADM IN Location: [facility]6 Assessment Plan (1) Active labor at term: (2) Uterine size-date discrepancy, third trimester: COMMENT: growth us ordered - nml growth fluid (3) Hx of section: COMMENT: emergency due to decels at 41 weeks in [facility], desires TOLAC. records requested (4) Supervision of high risk , antepartum: COMMENT: PRR , SREEKANTH 10/11/23 surprise PC Jose Antonio, Dandre (5) Anemia: COMMENT: encouraged Fe use (6) : QUALIFIERS: Weeks of gestation: 40 weeks Qualified Code(s): Z3A.40 - 40 weeks gestation of COMMENT: GBS neg, anatomy nl, declines ntd genetic carrier testing. (7) , delivered, current hospitalization: COMMENT: SM IAL 40 girl Lashay Maternal Data Information SREEKANTH Calculator Estimated Delivery Date Method Current WG Current Estimate 10/11/23 LMP (Certain) 40w 0d Other Estimates 10/05/23 Ultrasound #1 40w 6d 10/09/23 Conception 40w 2d Vaginal Delivery Operative Information Date of Procedure: 10/11/23 Pre-Operative Diagnosis: see a/p diagnoses Post-Operative Diagnosis: same Surgery / Procedure Performed: Type of Anesthesia: None Special Medications: none Estimated Blood Loss: 400 Fluids Replaced: crystalloid Findings Description of Procedure: Patient began pushing and delivered the head in the HARVINDER presentation. The head was delivered atraumatically . The anterior and posterior shoulders delivered without complication followed by the rest of the and the was placed on the maternal abdomen. Delayed cord clamping was employed for approximately 60 seconds. Cord was clamped and cut and gentle traction was applied to the cord and the placenta delivered spontaneously immediately following it was noted to be intact with three-vessel cord. The perineum and vagina were inspected and injected with lidocaine and noted to have a first degree perineal laceration which was repaired in the usual fashion with 3-0 vicryl rapide. . EBL was 400 cc. Patient and tolerated delivery well. Amniotic Fluid Description: Clear Placental Delivery Description: Spontaneous Placenta Disposition: [facility] Cord Vessel Description: 3 Vessels Cord Entanglement: None Delayed Cord Clamping: Yes Post Vaginal Delivery Medications Given After Delivery: IV Pitocin Episiotomy Description: None Complication Complications: None Multi Select Codes Urinary/Genital Urinary/Genital CPT Codes: 81026 delivery global pkg 10/11/23 1531 Cosigner Signature (if applicable): CC: Dr. Varsha Ramos MD; No Primary Care Physician Signed ADDENDUM by Dr. Varsha Ramos MD on 10/12/23 at 1237 Procedures Urinary/Genital 52xxx-59xxx: 37903 delivery global pkg (correction to previous charge please remove other global) 10/12/23 1237 Cosigner Signature (if applicable): cc: Dr. Varsha Ramos MD; No Primary Care Physician * Signed Normal [facility] Platelets bldOrdered By: Rachel Vaz on 10-11-2023 Platelets (Bld) [#/Vol] 223 10*3/uL Normal 150-450 [facility] Comment on above: Performed By: #### B TS, L100.0100 #### [facility] [address], [address] Serum Treponema species anti body detectionOrdered By: Arianne Vaz on 10-11-2023 Treponema sp Ab Ql (S) Non-Reactive [facility] Type AND Screenon 10-11-2023 ABO and Rh group Nom (Bld) Blood group A Rh(D) positive Normal [facility] Comment on above: Order Comment: Labor Performed By: #### B TS, L100.0100 #### [facility] [address] [place], [address] Laboratory - Chemistry and C hemistry - challengeon 10-05-2023 Glucose Ql (U) Negative [facility] - Urinalysison Protein Ql (U) Negative [facility] Switchboard Wire Worker Helper Office Visit Reporton 10-05-2023 Switchboard Wire Worker Helper Office Visit Report [facility] [address] [place] [address] OFFICE VISIT Date of Service: 10/05/23 MR#: [id number] Acct: [id number] Name: CLEOPATRA MOTTA Rep #: [id number] : 1995 Provider: Dr. Varsha calvert MD Age/Sex: 28/F Location: [facility] Status: Signed Intake Vital Signs 08/10/23 09:47 09/21/23 10:26 09/27/23 10:29 10/05/23 09:04 10/05/23 09:06 Height 5 ft 1 in 5 ft 1 in 5 ft 1 in 5 ft 1 in 5 ft 1 in Weight: 149 lb 2 oz BMI 28.1 BP 100/65 Intake Visit Reasons: 39 WK OB Diesel Inspector Required: No Is patient in pain?: No Allergies No Known Allergies Allergy (Verified 10/05/23 09:05) Medications multivit-min no.71-iron fum 28 mg-folate no.1 1 mg-dha 300 mg capsule (PNV-[place]) cap PO 11/06/22 [History Confirmed 12/12/23] Last Menstrual Period: 01/04/23 Zika: Zika virus screening: Negative : No PFSH PFSH Medical History Complete Surgical History Hx of section Family History Grandfather Diabetes Lung cancer Social History adopted: No household members: spouse and children number of children: 1 current occupational status: unemployed pets and animals: No history of recent travel: No sexually active: Yes Smoking Status: Never smoker alcohol intake: former details: ocasional but not while substance use type: does not use well-balanced diet: daily or most days caffeine: Yes Type: tea Number of servings: 1 eating out: 1-3 times/week during the past year weight has: remained stable what type of physical activity do you participate in: walking frequency: 3-4 times per week duration: 15-30 minutes/day jerrica/yazidism: Holiness seatbelt use: always do you feel safe at home: Yes additional social history: - [employer] History 3 Elective abortions Hx Para 1 Spontaneous abortions 1 Hx # Term Pregnancies Ectopic pregnancies Hx # Pregnancies Multiple births # of living children 1 Past Pregnancies Del. Date Name GA/Weeks Outcome Route Bth Weight Gen Labor Lgth Anesthesia Del Locatn Provider FOB 02/16/21 Jose Antonio 41 live - full term 8#1oz Male spin al [facility] Delivery Date: 02/16/21 Last Updated by: Talita Nagel emergency cs due to decels HPI 39 WK OB Details: CLEOPATRA MOTTA is a 28 year old who presents for routine OB visit. OB Visit [facility] Calculator Estimated Delivery Date Method Current WG Current Estimate 10/11/23 LMP (Certain) 39w 1d Other Estimates 10/05/23 Ultrasound #1 40w 0d 10/09/23 Conception 39w 3d Expected Delivery Route/Plan TOLAC by 41 weeks, discussed IOL if favorable patient counseled regarding risks/benefits of trial of labor versus repeat . ACOG/uptodate education given to patient. 70 % likelihood of success per calculator TOLAC consent form signed: yes Specific Issue/Plans Covid status: discussed Flu vaccine: discussed Tdap vaccine: [] Rhogam: [] LARC form signed: [] Problem list reviewed and updated with the most current plan of care details and appropriate orders placed. Relevant counseling for the gestational age provided. Continue routine care and follow up unless otherwise noted in visit notes/problem list details Initial Weight: Not Recorded Date -???-???-???-???-???- ???-???-???-???-???-? ??-???- EGA Weight BP Urine Prot -???-???-???-???-???- ???-???-???-???-???-? ??-???- Glucose FHR FuHt Pres Dilation -???-???-???-???-???- ???-???-???-???-???-? ??-???- Effaced St Visit Note 03/17/23 -???-???-???-???-???- ???-???-???-???-???-? ??-???- 10w 2d 129 lb 2 oz 102/69 102/69 -???-???-???-???-???- ???-???-???-???-???-? ??-???- 150 -???-???-???-???-???- ???-???-???-???-???-? ??-???- KW- SREEKANTH adjusted. JV scanned. 04/16/23 -???-???-???-???-???- ???-???-???-???-???-? ??-???- 14w 4d 129 lb 6 oz 122/68 Negative -???-???-???-???-???- ???-???-???-???-???-? ??-???- Negative 145 -???-???-???-???-???- ???-???-???-???-???-? ??-???- KW- PRR. no vb/cramping. US scheduled. having some vaginal irritation-culture done. 05/10/23 -???-???-???-???-???- ???-???-???-???-???-? ??-???- 18w 0d 130 lb 2 oz 111/72 Negative -???-???-???-???-???- ???-???-???-???-???-? ??-???- Negative 145 -???-???-???-???-???- ???-???-???-???-???-? ??-???- SM- no vb lo f some fm, dicsussion of TOLAC 06/25/23 -???-???-???-???-???- ???-???-???-???-???-? ??-???- 24w 4d 136 lb 99/53 -???-???-???-???-???- ???-???- (more content not included)... Normal [facility] - Chemistry and C hemistry - challengeon 09-27-2023 Glucose Ql (U) Negative [facility] - Urinalysison Protein Ql (U) Negative [facility] Switchboard Wire Worker Helper Office Visit Reporton 09-27-2023 Switchboard Wire Worker Helper Office Visit Report [facility] [address] [place] [address] OFFICE VISIT Date of Service: 09/27/23 MR#: [id number] Acct: [id number] Name: CLEOPATRA MOTTA Rep #: [id number] : 1995 Provider: Dr. Teresa Costello DO Age/Sex: 27/F Location: [facility] Status: Signed Intake Vital Signs 08/10/23 09:47 09/21/23 10:26 09/27/23 10:29 09/27/23 10:29 Height 5 ft 1 in 5 ft 1 in 5 ft 1 in 5 ft 1 in Weight: 147 lb 2 oz BMI 27.8 BP 113/66 Intake Visit Reasons: 38 WK OB Diesel Inspector Required: No Is patient in pain?: No Allergies No Known Allergies Allergy (Verified 09/27/23 10:28) Medications multivit-min no.71-iron fum 28 mg-folate no.1 1 mg-dha 300 mg capsule (PNV-[place]) cap PO 11/06/22 [History Confirmed 09/27/23] Last Menstrual Period: 01/04/23 Zika: Zika virus screening: Negative : No PFSH PFSH Medical History Complete Surgical History Hx of section Family History Grandfather Diabetes Lung cancer Social History adopted: No household members: spouse and children number of children: 1 current occupational status: unemployed pets and animals: No history of recent travel: No sexually active: Yes Smoking Status: Never smoker alcohol intake: former details: ocasional but not while substance use type: does not use well-balanced diet: daily or most days caffeine: Yes Type: tea Number of servings: 1 eating out: 1-3 times/week during the past year weight has: remained stable what type of physical activity do you participate in: walking frequency: 3-4 times per week duration: 15-30 minutes/day jerrica/yazidism: Holiness seatbelt use: always do you feel safe at home: Yes additional social history: - [employer] History 3 Elective abortions Hx Para 1 Spontaneous abortions 1 Hx # Term Pregnancies Ectopic pregnancies Hx # Pregnancies Multiple births # of living children 1 Past Pregnancies Del. Date Name GA/Weeks Outcome Route Bth Weight Infant Gen Labor Lgth Anesthesia Del Locatn Provider FOB 02/16/21 Jose Antonio 41 live - full term 8#1oz Male spin al [facility] Delivery Date: 02/16/21 Last Updated by: Talita Nagel emergency cs due to decels HPI 38 WK OB Details: CLEOPATRA MOTTA is a 27 year old who presents for routine OB visit. OB Visit SREEKANTH Calculator Estimated Delivery Date Method Current WG Current Estimate 10/11/23 LMP (Certain) 38w 0d Other Estimates 10/05/23 Ultrasound #1 38w 6d 10/09/23 Conception 38w 2d Expected Delivery Route/Plan TOLAC by 41 weeks, discussed IOL if favorable patient counseled regarding risks/benefits of trial of labor versus repeat . ACOG/uptodate education given to patient. 70 % likelihood of success per calculator TOLAC consent form signed: yes Specific Issue/Plans Covid status: discussed Flu vaccine: discussed Tdap vaccine: [] Rhogam: [] LARC form signed: [] Problem list reviewed and updated with the most current plan of care details and appropriate orders placed. Relevant counseling for the gestational age provided. Continue routine care and follow up unless otherwise noted in visit notes/problem list details Initial Weight: Not Recorded Date -???-???-???-???-???- ???-???-???-???-???-? ??-???- EGA Weight BP Urine Prot -???-???-???-???-???- ???-???-???-???-???-? ??-???- Glucose FHR FuHt Pres Dilation -???-???-???-???-???- ???-???-???-???-???-? ??-???- Effaced St Visit Note 03/17/23 -???-???-???-???-???- ???-???-???-???-???-? ??-???- 10w 2d 129 lb 2 oz 102/69 102/69 -???-???-???-???-???- ???-???-???-???-???-? ??-???- 150 -???-???-???-???-???- ???-???-???-???-???-? ??-???- KW- SREEKANTH adjusted. JV scanned. 04/16/23 -???-???-???-???-???- ???-???-???-???-???-? ??-???- 14w 4d 129 lb 6 oz 122/68 Negative -???-???-???-???-???- ???-???-???-???-???-? ??-???- Negative 145 -???-???-???-???-???- ???-???-???-???-???-? ??-???- KW- PRR. no vb/cramping. US scheduled. having some vaginal irritation-culture done. 05/10/23 -???-???-???-???-???- ???-???-???-???-???-? ??-???- 18w 0d 130 lb 2 oz 111/72 Negative -???-???-???-???-???- ???-???-???-???-???-? ??-???- Negative 145 -???-???-???-???-???- ???-???-???-???-???-? ??-???- SM- no vb lo f some fm, dicsussion of TOLAC 06/25/23 -???-???-???-???-???- ???-???-???-???-???-? ??-???- 24w 4d 136 lb 99/53 -???-???-???-???-???- ???-???-???-???-? (more content not included)... Normal [facility] - Chemistry and C hemistry - challengeon 09-21-2023 Glucose Ql (U) Negative [facility] - Urinalysison Protein Ql (U) Negative [facility] OB Limited With Biometricson 09-21-2023 OB Limited With Biometrics [facility] Imaging Services [address] [address] OB Limited With Biometrics MR#: [id number] Acct: [id number] Name: CLEOPATRA MOTTA Rep #: [id number] : 1995 F 27 From: Peña baeza MD PCP: Care Physician,No Primary Status: REG CL Study: OB Limited With Biometrics Date of Exam: 09/21 Exam# [id number] Ordering Dr: Varsha Ramos [id number] STUDY: SECOND AND THIRD TRIMESTER OBSTETRICAL ULTRASOUND REASON FOR EXAM: Female, 27 years old growth LMP: December 29, 2022. TECHNIQUE: Transabdominal TECHNICAL QUALITY: Adequate. PRIOR ULTRASOUND: Comparison is made with prior study dated May 11, 2023. FINDINGS: There is a single intrauterine fetus. The fetus is in a cephalic presentation. There is demonstrated cardiac activity with a heart rate of 171 bpm. There is a normal amniotic fluid volume. The largest amniotic fluid pocket measures 6 cm. The amniotic fluid index (TEENA) is 15.4 cm. The placenta is anterior in location and is not low lying. There are Grade 1 placental changes. The cervix was not measured due to head position The adnexal regions are not visualized. BIOMETRY: BPD: 9.13 cm: 37 weeks, 0 days HC: 33 cm: 37 weeks, 4 days AC: 33.1 cm: 37 weeks, 0 days FL: 7 cm: 36 weeks, 0 days CI: 79.2% FL/BPD: 76.8% FL/HC: FL/AC: 21.2% HC/AC: 1 age by current US: 36 weeks, 6 days. SREEKANTH by current US: October 13, 2023. Estimated weight: 3052 grams, +/- 458 grams, 33.4 %. Age by LMP: 38 weeks, 0 days. SREEKANTH by LMP: October 05, 2023. US/OB Limited With Biometrics IMPRESSION: Single live intrauterine gestation with mean gestational age of 36 weeks and 6 days. Electronically Signed: Peña Hardin MD at 15:14 EST Reading Location ID and State: [address] [place] [address] , Service support , CC: Dr. Varsha Ramos MD; No Primary Care Physician Shipyard Painter Helper: Signed Normal [facility] Switchboard Wire Worker Helper Office Visit Reporton 09-21-2023 Switchboard Wire Worker Helper Office Visit Report [facility] [address] [place] [address]. [address] [place] [address] OFFICE VISIT Date of Service: 09/21/23 MR#: [id number] Acct: [id number] Name: CLEOPATRA MOTTA Rep #: [id number] : 1995 Provider: Dr. Varsha calvert MD Age/Sex: 27/F Location: [facility] Status: Signed Intake Vital Signs 08/10/23 09:47 09/13/23 09:45 09/21/23 10:23 09/21/23 10:26 Height 5 ft 1 in 5 ft 1 in 5 ft 1 in 5 ft 1 in Weight: 147 lb 8 oz BMI 27.8 BP 96/59 L Intake Visit Reasons: 37 WK OB Diesel Inspector Required: No Is patient in pain?: No Allergies No Known Allergies Allergy (Verified 09/21/23 10:24) Medications multivit-min no.71-iron fum 28 mg-folate no.1 1 mg-dha 300 mg capsule (PNV-[place]) cap PO 11/06/22 [History Confirmed 09/21/23] Last Menstrual Period: 01/04/23 Zika: Zika virus screening: Negative [facility] Medical History Complete Surgical History Hx of section Family History Grandfather Diabetes Lung cancer Social History adopted: No household members: spouse and children number of children: 1 current occupational status: unemployed pets and animals: No history of recent travel: No sexually active: Yes Smoking Status: Never smoker alcohol intake: former details: ocasional but not while substance use type: does not use well-balanced diet: daily or most days caffeine: Yes Type: tea Number of servings: 1 eating out: 1-3 times/week during the past year weight has: remained stable what type of physical activity do you participate in: walking frequency: 3-4 times per week duration: 15-30 minutes/day jerrica/yazidism: Holiness seatbelt use: always do you feel safe at home: Yes additional social history: - [employer] History 3 Elective abortions Hx Para 1 Spontaneous abortions 1 Hx # Term Pregnancies Ectopic pregnancies Hx # Pregnancies Multiple births # of living children 1 Past Pregnancies Del. Date Name GA/Weeks Outcome Route Bth Weight [facility] Jose Antonio 41 live - full term 8#1oz Male spin al [facility] Delivery Date: 02/16/21 Last Updated by: Talita Nagel emergency cs due to decels HPI 37 WK OB Details: CLEOPATRA MOTTA is a 27 year old who presents for routine OB visit. OB Visit SREEKANTH Calculator Estimated Delivery Date Method Current WG Current Estimate 10/05/23 Ultrasound #1 38w 0d Other Estimates 10/11/23 LMP (Certain) 37w 1d Expected Delivery Route/Plan TOLAC by 41 weeks, discussed IOL if favorable patient counseled regarding risks/benefits of trial of labor versus repeat . ACOG/uptodate education given to patient. 70 % likelihood of success per calculator TOLAC consent form signed: yes Specific Issue/Plans Covid status: discussed Flu vaccine: discussed Tdap vaccine: [] Rhogam: [] LARC form signed: [] Problem list reviewed and updated with the most current plan of care details and appropriate orders placed. Relevant counseling for the gestational age provided. Continue routine care and follow up unless otherwise noted in visit notes/problem list details Initial Weight: Not Recorded Date -???-???-???-???-???- ???-???-???-???-???-? ??-???- EGA Weight BP Urine Prot -???-???-???-???-???- ???-???-???-???-???-? ??-???- Glucose FHR FuHt Pres Dilation -???-???-???-???-???- ???-???-???-???-???-? ??-???- Effaced St Visit Note 03/17/23 -???-???-???-???-???- ???-???-???-???-???-? ??-???- 11w 1d 129 lb 2 oz 102/69 102/69 -???-???-???-???-???- ???-???-???-???-???-? ??-???- 150 -???-???-???-???-???- ???-???-???-???-???-? ??-???- KW- SREEKANTH adjusted. JV scanned. 04/16/23 -???-???-???-???-???- ???-???-???-???-???-? ??-???- 15w 3d 129 lb 6 oz 122/68 Negative -???-???-???-???-???- ???-???-???-???-???-? ??-???- Negative 145 -???-???-???-???-???- ???-???-???-???-???-? ??-???- KW- PRR. no vb/cramping. US scheduled. having some vaginal irritation-culture done. 05/10/23 -???-???-???-???-???- ???-???-???-???-???-? ??-???- 18w 6d 130 lb 2 oz 111/72 Negative -???-???-???-???-???- ???-???-???-???-???-? ??-???- Negative 145 -???-???-???-???-???- ???-???-???-???-???-? ??-???- SM- no vb lo f some fm, dicsussion of TOLAC 06/25/23 -???-???-???-???-???- ???-???-???-???-???-? ??-???- 25w 3d 136 lb 99/53 -???-???-???-???-???- ???-???-???-???-???-? ??-???- 145 25 -???-???-???-???-???- ???-???-???-???-???-? ??- (more content not included)... Normal [facility] Rule out Beta Strep (Grp. B) on 09-16-2023 ARABELLA Group B Beta Streptococcus is not isolated. Normal [facility] Comment on above: Performed By: #### M 100.3400 #### [facility] [address] [place], [address] Laboratory - Chemistry and C hemistry - challengeon 09-13-2023 Glucose Ql (U) Negative [facility] Laboratory - Urinalysison Protein Ql (U) Negative [facility] No Panel InformationOrdered By: Teresa Perales on 09-13-2023 Group B Streptococcus Culture Group B Beta Streptococcus is not isolated. [facility] Switchboard Wire Worker Helper Office Visit Reporton 09-13-2023 Switchboard Wire Worker Helper Office Visit Report [facility] [address] [place] [address] OFFICE VISIT Date of Service: 09/13/23 MR#: [id number] Acct: [id number] Name: CLEOPATRA MOTTA Rep #: [id number] : 1995 Provider: Dr. Teresa Costello, Age/Sex: 27/F Location: [facility] Status: Signed Intake Vital Signs 08/10/23 09:47 08/24/23 09:51 09/13/23 09:45 09/13/23 09:45 Height 5 ft 1 in 5 ft 1 in 5 ft 1 in 5 ft 1 in Weight: 149 lb 4 oz BMI 28.2 BP 103/63 Intake Visit Reasons: 36 WK OB Diesel Inspector Required: No Is patient in pain?: No Allergies No Known Allergies Allergy (Verified 09/13/23 09:44) Medications multivit-min no.71-iron fum 28 mg-folate no.1 1 mg-dha 300 mg capsule (PNV-[place]) cap PO 11/06/22 [History Confirmed 09/13/23] Last Menstrual Period: 01/04/23 Zika: Zika virus screening: Negative : No PFSH PFSH Medical History Complete Surgical History Hx of section Family History Grandfather Diabetes Lung cancer Social History adopted: No household members: spouse and children number of children: 1 current occupational status: unemployed pets and animals: No history of recent travel: No sexually active: Yes Smoking Status: Never smoker alcohol intake: former details: ocasional but not while substance use type: does not use well-balanced diet: daily or most days caffeine: Yes Type: tea Number of servings: 1 eating out: 1-3 times/week during the past year weight has: remained stable what type of physical activity do you participate in: walking frequency: 3-4 times per week duration: 15-30 minutes/day jerrica/yazidism: Holiness seatbelt use: always do you feel safe at home: Yes additional social history: - [employer] History 3 Elective abortions Hx Para 1 Spontaneous abortions 1 Hx # Term Pregnancies Ectopic pregnancies Hx # Pregnancies Multiple births # of living children 1 Past Pregnancies Del. Date Name GA/Weeks Outcome Route Bth Weight Infant Gen Labor Lgth Anesthesia Del Locatn Provider FOB 02/16/21 Jose Antonio 41 live - full term 8#1oz Male spin al [facility] Delivery Date: 02/16/21 Last Updated by: Talita Nagel emergency cs due to decels HPI 36 WK OB Details: CLEOPATRA MOTTA is a 27 year old who presents for routine OB visit. OB Visit SREEKANTH Calculator Estimated Delivery Date Method Current WG Current Estimate 10/05/23 Ultrasound #1 36w 6d Other Estimates 10/11/23 LMP (Certain) 36w 0d Expected Delivery Route/Plan TOLAC patient counseled regarding risks/benefits of trial of labor versus repeat . ACOG/uptodate education given to patient. 70 % likelihood of success per calculator TOLAC consent form signed: Specific Issue/Plans Covid status: discussed Flu vaccine: discussed Tdap vaccine: [] Rhogam: [] LARC form signed: [] Problem list reviewed and updated with the most current plan of care details and appropriate orders placed. Relevant counseling for the gestational age provided. Continue routine care and follow up unless otherwise noted in visit notes/problem list details Initial Weight: Not Recorded Date -???-???-???-???-???- ???-???-???-???-???-? ??-???- EGA Weight BP Urine Prot -???-???-???-???-???- ???-???-???-???-???-? ??-???- Glucose FHR FuHt Pres Dilation -???-???-???-???-???- ???-???-???-???-???-? ??-???- Effaced St Visit Note 03/17/23 -???-???-???-???-???- ???-???-???-???-???-? ??-???- 11w 1d 129 lb 2 oz 102/69 102/69 -???-???-???-???-???- ???-???-???-???-???-? ??-???- 150 -???-???-???-???-???- ???-???-???-???-???-? ??-???- KW- SREEKANTH adjusted. JV scanned. 04/16/23 -???-???-???-???-???- ???-???-???-???-???-? ??-???- 15w 3d 129 lb 6 oz 122/68 Negative -???-???-???-???-???- ???-???-???-???-???-? ??-???- Negative 145 -???-???-???-???-???- ???-???-???-???-???-? ??-???- KW- PRR. no vb/cramping. US scheduled. having some vaginal irritation-culture done. 05/10/23 -???-???-???-???-???- ???-???-???-???-???-? ??-???- 18w 6d 130 lb 2 oz 111/72 Negative -???-???-???-???-???- ???-???-???-???-???-? ??-???- Negative 145 -???-???-???-???-???- ???-???-???-???-???-? ??-???- SM- no vb lo f some fm, dicsussion of TOLAC 06/25/23 -???-???-???-???-???- ???-???-???-???-???-? ??-???- 25w 3d 136 lb 99/53 -???-???-???-???-???- ???-???-???-???-???-? ??-???- 145 25 -???-???-???-???-???- ???-???-???-???-???-? ??-???- (more content not included)... Normal [facility] Laboratory - Chemistry and C hemistry - challengeon 08-24-2023 Glucose Ql (U) Negative [facility] Laboratory - Urinalysison Protein Ql (U) Negative [facility] Switchboard Wire Worker Helper Office Visit Reporton 08-24-2023 Switchboard Wire Worker Helper Office Visit Report [facility] [address] [place] [address] OFFICE VISIT Date of Service: 08/24/23 MR#: [id number] Acct: [id number] Name: CLEOPATRA MOTTA Rep #: [id number] : 1995 Provider: JD Gurrola ams Age/Sex: 27/F Location: [facility] Status: Signed Intake Vital Signs 08/10/23 09:47 08/24/23 09:48 08/24/23 09:51 Height 5 ft 1 in 5 ft 1 in 5 ft 1 in Weight: 148 lb 2 oz BMI 28.0 BP 97/63 Intake Visit Reasons: 34 WK OB Diesel Inspector Required: No Is patient in pain?: No Allergies No Known Allergies Allergy (Verified 08/24/23 09:49) Medications multivit-min no.71-iron fum 28 mg-folate no.1 1 mg-dha 300 mg capsule (PNV-[place]) cap PO 11/06/22 [History Confirmed 08/24/23] Last Menstrual Period: 01/04/23 Zika: Zika virus screening: Negative : No PFSH PFSH Medical History Complete Surgical History Hx of section Family History Grandfather Diabetes Lung cancer Social History adopted: No household members: spouse and children number of children: 1 current occupational status: unemployed pets and animals: No history of recent travel: No sexually active: Yes Smoking Status: Never smoker alcohol intake: former details: ocasional but not while substance use type: does not use well-balanced diet: daily or most days caffeine: Yes Type: tea Number of servings: 1 eating out: 1-3 times/week during the past year weight has: remained stable what type of physical activity do you participate in: walking frequency: 3-4 times per week duration: 15-30 minutes/day jerrica/yazidism: Holiness seatbelt use: always do you feel safe at home: Yes additional social history: - [employer] History 3 Elective abortions Hx Para 1 Spontaneous abortions 1 Hx # Term Pregnancies Ectopic pregnancies Hx # Pregnancies Multiple births # of living children 1 Past Pregnancies Del. Date Name GA/Weeks Outcome Route Bth Weight Infant Gen Labor Lgth Anesthesia Del Locatn Provider FOB 02/16/21 Jose Antonio 41 live - full term 8#1oz Male spin al [facility] Delivery Date: 02/16/21 Last Updated by: Talita Nagel emergency cs due to decels HPI 34 WK OB Details: CLEOPATRA MOTTA is a 27 year old who presents for routine OB visit. OB Visit SREEKANTH Calculator Estimated Delivery Date Method Current WG Current Estimate 10/05/23 Ultrasound #1 34w 0d Other Estimates 10/11/23 LMP (Certain) 33w 1d Expected Delivery Route/Plan TOLAC patient counseled regarding risks/benefits of trial of labor versus repeat . ACOG/uptodate education given to patient. 70 % likelihood of success per calculator TOLAC consent form signed: Specific Issue/Plans Covid status: discussed Flu vaccine: discussed Tdap vaccine: [] Rhogam: [] LARC form signed: [] Problem list reviewed and updated with the most current plan of care details and appropriate orders placed. Relevant counseling for the gestational age provided. Continue routine care and follow up unless otherwise noted in visit notes/problem list details Initial Weight: Not Recorded Date -???-???-???-???-???- ???-???-???-???-???-? ??-???- EGA Weight BP Urine Prot -???-???-???-???-???- ???-???-???-???-???-? ??-???- Glucose FHR FuHt Pres Dilation -???-???-???-???-???- ???-???-???-???-???-? ??-???- Effaced St Visit Note 03/17/23 -???-???-???-???-???- ???-???-???-???-???-? ??-???- 11w 1d 129 lb 2 oz 102/69 102/69 -???-???-???-???-???- ???-???-???-???-???-? ??-???- 150 -???-???-???-???-???- ???-???-???-???-???-? ??-???- KW- SREEKANTH adjusted. JV scanned. 04/16/23 -???-???-???-???-???- ???-???-???-???-???-? ??-???- 15w 3d 129 lb 6 oz 122/68 Negative -???-???-???-???-???- ???-???-???-???-???-? ??-???- Negative 145 -???-???-???-???-???- ???-???-???-???-???-? ??-???- KW- PRR. no vb/cramping. US scheduled. having some vaginal irritation-culture done. 05/10/23 -???-???-???-???-???- ???-???-???-???-???-? ??-???- 18w 6d 130 lb 2 oz 111/72 Negative -???-???-???-???-???- ???-???-???-???-???-? ??-???- Negative 145 -???-???-???-???-???- ???-???-???-???-???-? ??-???- SM- no vb lo f some fm, dicsussion of TOLAC 06/25/23 -???-???-???-???-???- ???-???-???-???-???-? ??-???- 25w 3d 136 lb 99/53 -???-???-???-???-???- ???-???-???-???-???-? ??-???- 145 25 -???-???-???-???-???- ???-???-???-???-???-? ??-???- SM- no vb lo f ctx feels some lower pelvic pressure (more content not included)... Normal [facility] Laboratory - Chemistry and C hemistry - challengeon 08-10-2023 Glucose Ql (U) Negative [facility] Laboratory - Urinalysison Protein Ql (U) Negative [facility] Switchboard Wire Worker Helper Office Visit Reporton 08-10-2023 Switchboard Wire Worker Helper Office Visit Report [facility] [address] [place], [place] [id number] OFFICE VISIT Date of Service: 08/10/23 MR#: [id number] Acct: [id number] Name: CLEOPATRA MOTTA Rep #: [id number] : 1995 Provider: CNM Angelica Willi ams Age/Sex: 27/F Location: [facility] Status: Signed Intake Vital Signs 07/26/23 09:55 08/10/23 09:46 08/10/23 09:47 Height 5 ft 1 in 5 ft 1 in 5 ft 1 in Weight: 142 lb 8 oz BMI 26.9 BP 103/60 Intake Visit Reasons: 32 WK OB Diesel Inspector Required: No Is patient in pain?: No Allergies No Known Allergies Allergy (Verified 08/10/23 09:47) Medications multivit-min no.71-iron fum 28 mg-folate no.1 1 mg-dha 300 mg capsule (PNV-[place]) cap PO 11/06/22 [History Confirmed 08/10/23] Last Menstrual Period: 01/04/23 Zika: Zika virus screening: Negative : No PFSH PFSH Medical History Complete Surgical History Hx of section Family History Grandfather Diabetes Lung cancer Social History adopted: No household members: spouse and children number of children: 1 current occupational status: unemployed pets and animals: No history of recent travel: No sexually active: Yes Smoking Status: Never smoker alcohol intake: former details: ocasional but not while substance use type: does not use well-balanced diet: daily or most days caffeine: Yes Type: tea Number of servings: 1 eating out: 1-3 times/week during the past year weight has: remained stable what type of physical activity do you participate in: walking frequency: 3-4 times per week duration: 15-30 minutes/day jerrica/yazidism: Holiness seatbelt use: always do you feel safe at home: Yes additional social history: - [employer] History 3 Elective abortions Hx Para 1 Spontaneous abortions 1 Hx # Term Pregnancies Ectopic pregnancies Hx # Pregnancies Multiple births # of living children 1 Past Pregnancies Del. Date Name GA/Weeks Outcome Route Bth Weight Infant Gen Labor Lgth Anesthesia Del Locatn Provider FOB 02/16/21 Jose Antonio 41 live - full term 8#1oz Male spin al [facility] Delivery Date: 02/16/21 Last Updated by: Talita Nagel emergency cs due to decels HPI 32 WK OB Details: CLEOPATRA MOTTA is a 27 year old who presents for routine OB visit. OB Visit SREEKANTH Calculator Estimated Delivery Date Method Current WG Current Estimate 10/05/23 Ultrasound #1 32w 0d Other Estimates 10/11/23 LMP (Certain) 31w 1d Expected Delivery Route/Plan TOLAC patient counseled regarding risks/benefits of trial of labor versus repeat . ACOG/uptodate education given to patient. 70 % likelihood of success per calculator TOLAC consent form signed: Specific Issue/Plans Covid status: discussed Flu vaccine: discussed Tdap vaccine: [] Rhogam: [] LARC form signed: [] Problem list reviewed and updated with the most current plan of care details and appropriate orders placed. Relevant counseling for the gestational age provided. Continue routine care and follow up unless otherwise noted in visit notes/problem list details Initial Weight: Not Recorded Date -???-???-???-???-???- ???-???-???-???-???-? ??-???- EGA Weight BP Urine Prot -???-???-???-???-???- ???-???-???-???-???-? ??-???- Glucose FHR FuHt Pres Dilation -???-???-???-???-???- ???-???-???-???-???-? ??-???- Effaced St Visit Note 03/17/23 -???-???-???-???-???- ???-???-???-???-???-? ??-???- 11w 1d 129 lb 2 oz 102/69 102/69 -???-???-???-???-???- ???-???-???-???-???-? ??-???- 150 -???-???-???-???-???- ???-???-???-???-???-? ??-???- KW- SREEKANTH adjusted. JV scanned. 04/16/23 -???-???-???-???-???- ???-???-???-???-???-? ??-???- 15w 3d 129 lb 6 oz 122/68 Negative -???-???-???-???-???- ???-???-???-???-???-? ??-???- Negative 145 -???-???-???-???-???- ???-???-???-???-???-? ??-???- KW- PRR. no vb/cramping. US scheduled. having some vaginal irritation-culture done. 05/10/23 -???-???-???-???-???- ???-???-???-???-???-? ??-???- 18w 6d 130 lb 2 oz 111/72 Negative -???-???-???-???-???- ???-???-???-???-???-? ??-???- Negative 145 -???-???-???-???-???- ???-???-???-???-???-? ??-???- SM- no vb lo f some fm, dicsussion of TOLAC 06/25/23 -???-???-???-???-???- ???-???-???-???-???-? ??-???- 25w 3d 136 lb 99/53 -???-???-???-???-???- ???-???-???-???-???-? ??-???- 145 25 -???-???-???-???-???- ???-???-???-???-???-? ??-???- SM- no vb lo f ctx feels some lower pelvic pres (more content not included)... Normal [facility] Laboratory - Chemistry and C hemistry - challengeon 07-26-2023 Glucose Ql (U) Negative [facility] Laboratory - Urinalysison Protein Ql (U) Trace [facility] Switchboard Wire Worker Helper Office Visit Reporton 07-26-2023 Switchboard Wire Worker Helper Office Visit Report [facility] [address] [place] [address] OFFICE VISIT Date of Service: 07/26/23 MR#: [id number] Acct: [id number] Name: CLEOPATRA MOTTA Rep #: [id number] : 1995 Provider: JD Gurrola ams Age/Sex: 27/F Location[facility] Status: Signed Intake Vital Signs 06/25/23 14:46 07/26/23 09:50 07/26/23 09:55 Height 5 ft 1 in 5 ft 1 in 5 ft 1 in Weight: 139 lb 8 oz BMI 26.3 BP 95/53 L Blood Pressure Location Rt brachial Position Sitting Respiration 16 Pulse 67 Pulse Source NIBP Temp 98.1 F Temperature Source Temporal Artery Pulse Oximetry (%) 99 Oxygen Delivery Method room air Intake Visit Reasons: 30 WK Chief Complaint: 30 WK ob Diesel Inspector Required: No Is patient in pain?: No Feel stressed/tense/nervou s/anxious/difficulty sleeping: not at all Allergies No Known Allergies Allergy (Verified 07/26/23 09:55) Last Menstrual Period: 01/04/23 : No PFSH PFSH Medical History Complete Surgical History Hx of section Family History Grandfather Diabetes Lung cancer Social History adopted: No household members: spouse and children number of children: 1 current occupational status: unemployed pets and animals: No history of recent travel: No sexually active: Yes Smoking Status: Never smoker alcohol intake: former details: ocasional but not while substance use type: does not use well-balanced diet: daily or most days caffeine: Yes Type: tea Number of servings: 1 eating out: 1-3 times/week during the past year weight has: remained stable what type of physical activity do you participate in: walking frequency: 3-4 times per week duration: 15-30 minutes/day jerrica/yazidism: Holiness seatbelt use: always do you feel safe at home: Yes additional social history: - [employer] History 3 Elective abortions Hx Para 1 Spontaneous abortions 1 Hx # Term Pregnancies Ectopic pregnancies Hx # Pregnancies Multiple births # of living children 1 Past Pregnancies Del. Date Name GA/Weeks Outcome Route Bth Weight Infant Gen Labor Lgth Anesthesia Del Locatn Provider FOB 02/16/21 Jose Antonio 41 live - full term 8#1oz Male spin al [facility] Delivery Date: 02/16/21 Last Updated by: Talita Nagel emergency cs due to decels HPI 30 WK Details: CLEOPATRA MOTTA is a 27 year old who presents for routine OB visit. OB Visit SREEKANTH Calculator Estimated Delivery Date Method Current WG Current Estimate 10/05/23 Ultrasound #1 29w 6d Other Estimates 10/11/23 LMP (Certain) 29w 0d Expected Delivery Route/Plan TOLAC patient counseled regarding risks/benefits of trial of labor versus repeat . ACOG/uptodate education given to patient. 70 % likelihood of success per calculator TOLAC consent form signed: Specific Issue/Plans Covid status: discussed Flu vaccine: discussed Tdap vaccine: [] Rhogam: [] LARC form signed: [] Problem list reviewed and updated with the most current plan of care details and appropriate orders placed. Relevant counseling for the gestational age provided. Continue routine care and follow up unless otherwise noted in visit notes/problem list details Initial Weight: Not Recorded Date -???-???-???-???-???- ???-???-???-???-???-? ??-???- EGA Weight BP Urine Prot -???-???-???-???-???- ???-???-???-???-???-? ??-???- Glucose FHR FuHt Pres Dilation -???-???-???-???-???- ???-???-???-???-???-? ??-???- Effaced St Visit Note 03/17/23 -???-???-???-???-???- ???-???-???-???-???-? ??-???- 11w 1d 129 lb 2 oz 102/69 102/69 -???-???-???-???-???- ???-???-???-???-???-? ??-???- 150 -???-???-???-???-???- ???-???-???-???-???-? ??-???- KW- SREEKANTH adjusted. JV scanned. 04/16/23 -???-???-???-???-???- ???-???-???-???-???-? ??-???- 15w 3d 129 lb 6 oz 122/68 Negative -???-???-???-???-???- ???-???-???-???-???-? ??-???- Negative 145 -???-???-???-???-???- ???-???-???-???-???-? ??-???- KW- PRR. no vb/cramping. US scheduled. having some vaginal irritation-culture done. 05/10/23 -???-???-???-???-???- ???-???-???-???-???-? ??-???- 18w 6d 130 lb 2 oz 111/72 Negative -???-???-???-???-???- ???-???-???-???-???-? ??-???- Negative 145 -???-???-???-???-???- ???-???-???-???-???-? ??-???- SM- no vb lo f some fm, dicsussion of TOLAC 06/25/23 -???-???-???-???-???- ???-???-???-???-???-? ??-???- 25w 3d 136 lb 99/53 -???-???-???-???-???- ???-?? (more content not included)... Normal [facility] Absolute lymphocyte countOrd ered By: Varsha Ramos on 07-15-2023 Lymphocytes Auto (Unsp spec) [#/Vol] 1.17 10*3/uL 0.83-4.51 [facility] Basophil percentageOrdered B y: Varsha Ramos on 07-15-2023 Basophils/100 WBC (Bld) 0.4 % 0-1 [facility] Eosinophils/100 WBC (Bld) 1.4 % 0-5 [facility] Neutrophils (Bld) [#/Vol] 7.2 10*3/uL 2.0-7.7 [facility] Neutrophils/100 WBC (Bld) 79.0 % 47-70 [facility] WBC (Bld) [#/Vol] 9.1 10*3/uL 4.4-11.0 [facility] Blood erythrocytes count (nu mber/volume)Ordered By: Varsha Ramos on 07-15-2023 RBC (Bld) [#/Vol] 3.69 10*6/uL 4.2-5.4 [facility] Blood hemoglobin measurement (mass/volume)Ordered By: Varsha Ramos on 07-15-2023 Hemoglobin (Bld) [Mass/Vol] 11.2 g/dL 12.0-15.0 [facility] Blood lymphocytes/100 leukoc ytesOrdered By: Varsha Ramos on 07-15-2023 Lymphocytes/100 WBC (Bld) 12.8 % 19-41 [facility] Blood monocytes/100 leukocyt esOrdered By: Varsha Ramos on 07-15-2023 Monocytes/100 WBC (Bld) 5.5 % 0-10 [facility] Blood platelet mean volumeOr dered By: Varsha Ramos on 07-15-2023 Platelet mean volume (Bld) [Entitic vol] 10.5 fL 6.2-12.0 [facility] CBC W/Diff, Automatedon 06-26 Absolute Lymph 1.17 X10 3/uL Normal 0.83-4.51 [facility] Comment on above: Performed By: #### L 100.0100, L509.8000, L3890.6005, L501.0250 ####[facility] [address] [place], [address] Absolute Neut 7.2 X10 3/uL Normal 2.0-7.7 [facility] Comment on above: Performed By: #### L 100.0100, L509.8000, L3890.6005, L501.0250 ####[facility] [address] [place], [address] Basophils/100 WBC (Bld) 0.4 % Normal 0-1 [facility] Comment on above: Performed By: #### L 100.0100, L509.8000, L3890.6005, L501.0250 ####[facility] [address] [place], [address] Eosinophils/100 WBC (Bld) 1.4 % Normal 0-5 [facility] Comment on above: Performed By: #### L 100.0100, L509.8000, L3890.6005, L501.0250 ####[facility] [address] [place], [address] Erythrocyte distribution width (RBC) [Ratio] 13.1 % Normal 11.6-14.6 [facility] Comment on above: Performed By: #### L 100.0100, L509.8000, L3890.6005, L501.0250 ####[facility] [address] [place], [address] Hematocrit (Bld) [Volume fraction] 32.9 % Low 37-47 [facility] Comment on above: Performed By: #### L 100.0100, L509.8000, L3890.6005, L501.0250 ####[facility] [address] [place], [address] Hemoglobin (Bld) [Mass/Vol] 11.2 g/dL Low 12.0-15.0 [facility] Comment on above: Performed By: #### L 100.0100, L509.8000, L3890.6005, L501.0250 ####[facility] [address] [place], [address] IG% 0.900 Normal 0.0-0.9 [facility] Comment on above: Result Comment: IG% - Immature Granulocytes (promyelocytes, myelocytes and metamyelocytes) > 1% indicates that a LEFT SHIFT is Present. Performed By: #### L 100.0100, L509.8000, L3890.6005, L501.0250 ####[facility] [address] [place], [address] Lymphocytes/100 WBC (Bld) 12.8 % Low 19-41 [facility] Comment on above: Performed By: #### L 100.0100, L509.8000, L3890.6005, L501.0250 ####[facility] [address] [place], [address] MCH (RBC) [Entitic mass] 30.4 pg Normal 27.0-32.0 [facility] Comment on above: Performed By: #### L 100.0100, L509.8000, L3890.6005, L501.0250 ####[facility] [address] [place], [address] MCHC (RBC) [Mass/Vol] 34.0 g/dL Normal 32-36 [facility] Comment on above: Performed By: #### L 100.0100, L509.8000, L3890.6005, L501.0250 ####[facility] [address] [place], [address] MCV (RBC) [Entitic vol] 89.2 fL Normal 81-99 [facility] Comment on above: Performed By: #### L 100.0100, L509.8000, L3890.6005, L501.0250 ####[facility] [address] [place], [address] Monocytes/100 WBC (Bld) 5.5 % Normal 0-10 [facility] Comment on above: Performed By: #### L 100.0100, L509.8000, L3890.6005, L501.0250 ####[facility] [facility] [address] [place], [address] Neutrophils/100 WBC (Bld) 79.0 % High 47-70 [facility] Comment on above: Performed By: #### L 100.0100, L509.8000, L3890.6005, L501.0250 ####[facility] [address] [place], [address] Nucleated RBC (Bld) [#/Vol] 0 10*3/uL Normal 0-5 [facility] Comment on above: Performed By: #### L 100.0100, L509.8000, L3890.6005, L501.0250 ####[facility] [address] [place], [address] Platelet mean volume (Bld) [Entitic vol] 10.5 fL Normal 6.2-12.0 [facility] Comment on above: Performed By: #### L 100.0100, L509.8000, L3890.6005, L501.0250 ####[facility] [address] [place], [address] Platelets (Bld) [#/Vol] 198 10*3/uL Normal 150-450 [facility] Comment on above: Performed By: #### L 100.0100, L509.8000, L3890.6005, L501.0250 ####[facility] [address] [place], [address] RBC (Bld) [#/Vol] 3.69 10*6/uL Low 4.2-5.4 [facility] Comment on above: Performed By: #### L 100.0100, L509.8000, L3890.6005, L501.0250 ####[facility] [address] [place], [address] RDW SD 43.0 fl Normal 35.1-43.9 [facility] Comment on above: Performed By: #### L 100.0100, L509.8000, L3890.6005, L501.0250 ####[facility] [address] [place], [address] WBC (Bld) [#/Vol] 9.1 10*3/uL Normal 4.4-11.0 [facility] Comment on above: Performed By: #### L 100.0100, L509.8000, L3890.6005, L501.0250 ####[facility] [address] [place], [address] Determination of erythrocyte mean corpuscular volume (MCV)Ordered By: Varsha Ramos on 07-15-2023 MCV (RBC) [Entitic vol] 89.2 fL 81-99 [facility] Gestational diabetes screen 1-hour screen with 50g oral glucose loadOrdered By: Varsha Ramos on 07-15-2023 Glucose 1 Hr post 50 g glucose PO [Mass/Vol] 111 mg/dL 70-140 [facility] Glucose Challenge Gest 1H 50 cassandra 07-15-2023 GLU GEST 50g 1H 111 mg/dL Normal 70-140 [facility] Comment on above: Performed By: #### L 100.0100, L509.8000, L3890.6005, L501.0250 ####[facility] [address] [place], [address] HIV - WCHon 07-15-2023 HIV Non-Reactive Normal Nonreactive [facility] Comment on above: Performed By: #### L 100.0100, L509.8000, L3890.6005, L501.0250 ####[facility] [address] [place], [address] HIV 1 and HIV-2 antibody ass ay with HIV-1 p24 antigen detectionOrdered By: Varsha Ramos on 07-15-2023 HIV 1+2 Ab+HIV1 p24 Ag IA Ql Non-Reactive Nonreactive [facility] Hematocrit Auto (Bld) [Volum e fraction]Ordered By: Varsha Ramos on 07-15-2023 Hematocrit (Bld) [Volume fraction] 32.9 % 37-47 [facility] L509.8000on 07-15-2023 Syphilis Abs Non-Reactive Normal [facility] Comment on above: Performed By: #### L 100.0100, L509.8000, L3890.6005, L501.0250 ####[facility] [address] [place], [address] Laboratory - Hematology and Cell countsOrdered By: Varsha Ramos on 07-15-2023 Erythrocyte distribution width (RBC) [Entitic vol] 43.0 fL 35.1-43.9 [facility] Erythrocyte distribution width (RBC) [Ratio] 13.1 % 11.6-14.6 [facility] Immature granulocytes/100 WBC (Bld) 0.900 % 0.0-0.9 [facility] Comment on above: IG% - Immature Granu locytes (promyelocytes, myelocytes and metamyelocytes) > 1% indicates that a LEFT SHIFT is Present. MCH (RBC) [Entitic mass] 30.4 pg 27.0-32.0 [facility] Nucleated RBC/100 WBC (Bld) [Ratio] 0 % 0-5 [facility] MCHC Auto (RBC) [Mass/Vol]Or dered By: Varsha Ramos on 07-15-2023 MCHC (RBC) [Mass/Vol] 34.0 g/dL 32-36 [facility] Platelets bldOrdered By: Benja Ramos on 07-15-2023 Platelets (Bld) [#/Vol] 198 10*3/uL 150-450 [facility] Serum Treponema species anti body detectionOrdered By: Varsha Ramos on 07-15-2023 Treponema sp Ab Ql (S) Non-Reactive [facility] Switchboard Wire Worker Helper Office Visit Reporton 06-25-2023 Switchboard Wire Worker Helper Office Visit Report [facility] [address] [place] [address] OFFICE VISIT Date of Service: 06/25/23 MR#: [id number] Acct: [id number] Name: CLEOPATRA MOTTA Rep #: [id number] : 1995 Provider: Dr. Varsha calvert MD Age/Sex: 27/F Location: [facility] Status: Signed Intake Vital Signs 05/10/23 14:30 05/10/23 14:49 06/25/23 14:46 06/25/23 15:18 Height 5 ft 1 in 5 ft 1 in 5 ft 1 in Weight: 136 lb 136 lb BMI 25.7 BP 99/53 L 99/53 L Intake Visit Reasons: 24 WK OB, pt req due to vacation Diesel Inspector Required: No Is patient in pain?: No Allergies No Known Allergies Allergy (Verified 06/25/23 14:43) Medications multivit-min no.71-iron fum 28 mg-folate no.1 1 mg-dha 300 mg capsule (PNV-[place]) cap PO 11/06/22 [History Confirmed 06/25/23] Last Menstrual Period: 01/04/23 Zika: Zika virus screening: Negative : No PFSH PFSH Medical History Complete Surgical History Hx of section Family History Grandfather Diabetes Lung cancer Social History adopted: No household members: spouse and children number of children: 1 current occupational status: unemployed pets and animals: No history of recent travel: No sexually active: Yes Smoking Status: Never smoker alcohol intake: former details: ocasional but not while substance use type: does not use well-balanced diet: daily or most days caffeine: Yes Type: tea Number of servings: 1 eating out: 1-3 times/week during the past year weight has: remained stable what type of physical activity do you participate in: walking frequency: 3-4 times per week duration: 15-30 minutes/day jerrica/yazidism: Holiness seatbelt use: always do you feel safe at home: Yes additional social history: - [employer] History 3 Elective abortions Hx Para 1 Spontaneous abortions 1 Hx # Term Pregnancies Ectopic pregnancies Hx # Pregnancies Multiple births # of living children 1 Past Pregnancies Del. Date Name GA/Weeks Outcome Route Bth Weight Infant Gen Labor Lgth Anesthesia Del Locatn Provider FOB 02/16/21 Jose Antonio 41 live - full term 8#1oz Male spin al [facility] D[facility]re Delivery Date: 02/16/21 Last Updated by: Talita Nagel emergency cs due to decels HPI 24 WK OB, pt req due to vacation Details: CLEOPATRA MOTTA is a 27 year old who presents for New OB visit. OB Visit SREEKANTH Calculator Estimated Delivery Date Method Current WG Current Estimate 10/05/23 Ultrasound #1 25w 3d Other Estimates 10/11/23 LMP (Certain) 24w 4d Estimated Due Date: 10/11/23 Expected Delivery Route/Plan TOLAC patient counseled regarding risks/benefits of trial of labor versus repeat . ACOG/uptodate education given to patient. 70 % likelihood of success per calculator TOLAC consent form signed: Specific Issue/Plans Covid status: discussed Flu vaccine: discussed Tdap vaccine: [] Rhogam: [] LARC form signed: [] Problem list reviewed and updated with the most current plan of care details and appropriate orders placed. Relevant counseling for the gestational age provided. Continue routine care and follow up unless otherwise noted in visit notes/problem list details Initial Weight: Not Recorded Date -???-???-???-???-???- ???-???-???-???-???-? ??-???- EGA Weight BP Urine Prot -???-???-???-???-???- ???-???-???-???-???-? ??-???- Glucose FHR FuHt Pres Dilation -???-???-???-???-???- ???-???-???-???-???-? ??-???- Effaced St Visit Note 03/17/23 -???-???-???-???-???- ???-???-???-???-???-? ??-???- 11w 1d 129 lb 2 oz 102/69 102/69 -???-???-???-???-???- ???-???-???-???-???-? ??-???- 150 -???-???-???-???-???- ???-???-???-???-???-? ??-???- KW- SREEKANTH adjusted. JV scanned. 04/16/23 -???-???-???-???-???- ???-???-???-???-???-? ??-???- 15w 3d 129 lb 6 oz 122/68 Negative -???-???-???-???-???- ???-???-???-???-???-? ??-???- Negative 145 -???-???-???-???-???- ???-???-???-???-???-? ??-???- KW- PRR. no vb/cramping. US scheduled. having some vaginal irritation-culture done. 05/10/23 -???-???-???-???-???- ???-???-???-???-???-? ??-???- 18w 6d 130 lb 2 oz 111/72 Negative -???-???-???-???-???- ???-???-???-???-???-? ??-???- Negative 145 -???-???-???-???-???- ???-???-???-???-???-? ??-???- SM- no vb lo f some fm, dicsussion of TOLAC 06/25/23 -???-???-???-???-???- ???-???-???-???-???-? ??-???- 25w 3d 136 lb 99/53 -???-???-???-???-???- ???-???-???-???-???-? ??-???- 145 (more content not included)... Normal [facility] OB Anatomy Scanon 05-11-2023 OB Anatomy Scan [facility] Imaging Services [address] [place] [address] OB Anatomy Scan MR#: [id number] Acct: [id number] Name: CLEOPATRA MOTTA Rep #: [id number] : 1995 F 27 From: Masoud Leon PCP: Care Physician,No Primary Status: [facility] Study: OB Anatomy Scan Date of Exam: 05/11/23 Exam# [id number] Ordering Dr: Angelica Beaulieu CNM ADDENDUM by Dr. Peña Hardin MD on 05/18/23 at 0831 ======== ADDENDUM ======== This is an addendum report. Imaging of the anatomy including the cranium, chest, abdomen and pelvis as well as spines and extremities was performed. No abnormality is seen. Electronically Signed: Peña Hardin MD at 8:31 EDT , 05/18/23 0831 Date cc: JD Beaulieu; No Primary Care Physician * Signed ADDENDUM by Dr. Peña Hardin MD on 05/18/23 at 0831 US/OB Anatomy Scan IMPRESSION: undefined 05/18/23 0838 Date cc: JD Beaulieu; No Primary Care Physician * Signed INDICATION: anatomy scan EXAMINATION: Ultrasound US OB Greater Than 14 Weeks TECHNIQUE: Transabdominal and endovaginal pelvic ultrasound was performed. COMPARISON: First trimester OB ultrasound November 10, 2022 LMP: September 08, 2022 per prior study. Beta-hCG: Unknown. Provided EGA: October 05, 2023 FINDINGS: INTRAUTERINE GESTATION(s): Single. ESTIMATED GESTATIONAL AGE: 18 weeks, 3 days ESTIMATED DUE DATE (SREEKANTH): October 09, 2023 HEART MOTION is 141 bpm. ESTIMATED WEIGHT: 241 g, +/- 36 g. Percentile 18.7%. BIOPHYSICAL PROFILE (BPP): Not assessed. PRESENTATION: Cephalic PLACENTA: Anterior. There is no placenta previa or abruption. CERVIX: The cervix is closed. Cervical length is 4.5 cm. MATERNAL OVARIES: No adnexal masses. FREE FLUID: None. IMPRESSION: 1. Single live intrauterine in cephalic presentation at this late gestational age of 18 weeks, 3 days. Estimated date of delivery by today''s study is October 09, 2023. 2. Visually normal amniotic fluid volume. 3. Anterior grade 0-1 placenta is not low lying. 4. The cervix is closed. Cervical length is 4.5 cm. 5. Estimated weight is 241 g. Electronically Signed: Enrique Dalton MD at 16:16 EDT Reading Location ID and State: [id number] / Unknown , Service support , INDICATION: anatomy scan EXAMINATION: Ultrasound US OB Greater Than 14 Weeks TECHNIQUE: Transabdominal and endovaginal pelvic ultrasound was performed. COMPARISON: First trimester OB ultrasound November 10, 2022 LMP: September 08, 2022 per prior study. Beta-hCG: Unknown. Provided EGA: October 05, 2023 FINDINGS: INTRAUTERINE GESTATION(s): Single. ESTIMATED GESTATIONAL AGE: 18 weeks, 3 days ESTIMATED DUE DATE (SREEKANTH): October 09, 2023 HEART MOTION is 141 bpm. ESTIMATED WEIGHT: 241 g, +/- 36 g. Percentile 18.7%. BIOPHYSICAL PROFILE (BPP): Not assessed. PRESENTATION: Cephalic PLACENTA: Anterior. There is no placenta previa or abruption. CERVIX: The cervix is closed. Cervical length is 4.5 cm. MATERNAL OVARIES: No adnexal masses. FREE FLUID: None. US/OB Anatomy Scan IMPRESSION: 1. Single live intrauterine in cephalic presentation at this late gestational age of 18 weeks, 3 days. Estimated date of delivery by today''s study is October 09, 2023. 2. Visually normal amniotic fluid volume. 3. Anterior grade 0-1 placenta is not low lying. 4. The cervix is closed. Cervical length is 4.5 cm. 5. Estimated weight is 241 g. 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 [place], [place] [id number] OFFICE VISIT Date of Service: 05/10/23 MR#: [id number] Acct: [id number] Name: CLEOPATRA MOTTA Rep #: [id number] : 1995 Provider: Dr. Varsha calvert MD Age/Sex: 27/F Location: [facility] Status: Signed Intake Vital Signs 03/17/23 11:31 04/16/23 11:05 05/10/23 14:26 05/10/23 14:30 Height 5 ft 1 in 5 ft 1 in 5 ft 1 in 5 ft 1 in Weight: 130 lb 2 oz BMI 24.5 BP 111/72 Intake Visit Reasons: 20 WK OB Diesel Inspector Required: No Is patient in pain?: No Allergies No Known Allergies Allergy (Verified 05/10/23 14:27) Medications multivit-min no.71-iron fum 28 mg-folate no.1 1 mg-dha 300 mg capsule (PNV-[place]) cap PO 11/06/22 [History Confirmed 05/10/23] Last Menstrual Period: 01/04/23 Zika: Zika virus screening: Negative : No PFSH PFSH Medical History (Updated 05/10/23 @ 14:29 by Naye Rodrigez) Complete Surgical History (Updated 04/16/23 @ 11:31 by Angelica Beaulieu CNM) Hx of section Family History Grandfather Diabetes Lung cancer Social History adopted: No household members: spouse and children number of children: 1 current occupational status: unemployed pets and animals: No history of recent travel: No sexually active: Yes Smoking Status: Never smoker alcohol intake: former details: ocasional but not while substance use type: does not use well-balanced diet: daily or most days caffeine: Yes Type: tea Number of servings: 1 eating out: 1-3 times/week during the past year weight has: remained stable what type of physical activity do you participate in: walking frequency: 3-4 times per week duration: 15-30 minutes/day jerrica/yazidism: Holiness seatbelt use: always do you feel safe at home: Yes additional social history: - [place] History 3 Elective abortions Hx Para 1 Spontaneous abortions 1 Hx # Term Pregnancies Ectopic pregnancies Hx # Pregnancies Multiple births # of living children 1 Past Pregnancies Del. Date Name GA/Weeks Outcome Route Bth Weight Gen Labor Lgth Anesthesia Del Locatn Provider FOB 02/16/21 Jose Antonio 41 live - full term 8#1oz Male spin al [facility] Delivery Date: 02/16/21 Last Updated by: Talita Nagel emergency cs due to decels HPI 20 WK OB Details: CLEOPATRA MOTTA is a 27 year old who presents for routine OB visit. OB Visit SREEKANTH Calculator Estimated Delivery Date Method Current WG Current Estimate 10/05/23 Ultrasound #1 18w 6d Other Estimates 10/11/23 LMP (Certain) 18w 0d Expected Delivery Route/Plan TOLAC patient counseled regarding risks/benefits of trial of labor versus repeat . ACOG/uptodate education given to patient. 70 % likelihood of success per calculator TOLAC consent form signed: Specific Issue/Plans Covid status: discussed Flu vaccine: discussed Tdap vaccine: [] Rhogam: [] LARC form signed: [] Problem list reviewed and updated with the most current plan of care details and appropriate orders placed. Relevant counseling for the gestational age provided. Continue routine care and follow up unless otherwise noted in visit notes/problem list details Initial Weight: Not Recorded Date -???-???-???-???-???- ???-???-???-???-???-? ??-???- EGA Weight BP Urine Prot -???-???-???-???-???- ???-???-???-???-???-? ??-???- Glucose FHR FuHt Pres Dilation -???-???-???-???-???- ???-???-???-???-???-? ??-???- Effaced St Visit Note 03/17/23 -???-???-???-???-???- ???-???-???-???-???-? ??-???- 11w 1d 129 lb 2 oz 102/69 102/69 -???-???-???-???-???- ???-???-???-???-???-? ??-???- 150 -???-???-???-???-???- ???-???-???-???-???-? ??-???- KW- SREEKANTH adjusted. JV scanned. 04/16/23 -???-???-???-???-???- ???-???-???-???-???-? ??-???- 15w 3d 129 lb 6 oz 122/68 Negative -???-???-???-???-???- ???-???-???-???-???-? ??-???- Negative 145 -???-???-???-???-???- ???-???-???-???-???-? ??-???- KW- PRR. no vb/cramping. US scheduled. having some vaginal irritation-culture done. 05/10/23 -???-???-???-???-???- ???-???-???-???-???-? ??-???- 18w 6d 130 lb 2 oz 111/72 Negative -???-???-???-???-???- ???-???-???-???-???-? ??-???- Negative 145 -???-???-???-???-???- ???-???-???-???-???-? ??-???- SM- no vb lo f some fm, dicsussion of TOLAC ACOG First Trimester First Trimester: Desire for , Alcohol, Illicit/Recreational Drug/Substance Use, Intimate Partner Violence, Barriers to care, Unstable Housing, Communication Barriers, Envi (more content not included)... Normal [facility] Genital Culture Comprehensiv rakel 04-19-2023 VAC Reason for Exam: Adi n Pain Normal vaginal rhoda isolated. No yeast, Gardnerella, Neisseria or beta-hemolytic Streptococcus isolated. Normal [facility] Comment on above: Performed By: #### M 100.1999, M100.3200 #### [facility] [address] [place], [place], [id number] Gram Stainon 04-16-2023 GS Reason for Exam: Adi n Pain Gram Stain Rare Epithelial cells 3+ Gram positive rods No Gram negative diplococci Score = 1 Interpretation: 0-3 Normal, 4-6 Intermediate, 7-10 Positive BV Normal [facility] Comment on above: Performed By: #### M 100.1999, M100.3200 #### [facility] [address] [place], [place], [address] Gram stain for investigation of transfusion reactionOrdered By: Angelica Beaulieu on 04-16-2023 Microscopic observation Gram stain Nom (Unsp spec) [facility] Laboratory - Chemistry and C hemistry - challengeon 04-16-2023 Glucose Ql (U) Negative [facility] Laboratory - Urinalysison Protein Ql (U) Negative [facility] Switchboard Wire Worker Helper Office Visit Reporton 04-16-2023 Switchboard Wire Worker Helper Office Visit Report [facility] [address] [place], [place] [address] OFFICE VISIT Date of Service: 04/16/23 MR#: [id number] Acct: [id number] Name: CLEOPATRA MOTTA Rep #: [id number] : 1995 Provider: JD Gurrola ams Age/Sex: 27/F Location: [facility] Status: Signed Intake Vital Signs 04/16/23 10:58 04/16/23 11:05 Height 5 ft 1 in 5 ft 1 in Weight: 129 lb 6 oz BMI 24.4 BP 122/68 H Blood Pressure Location Lt brachial Position Sitting Intake Visit Reasons: 16 WK OB Chief Complaint: 16 week OB Diesel Inspector Required: No Is patient in pain?: No Allergies No Known Allergies Allergy (Verified 04/16/23 11:05) Medications multivit-min no.71-iron fum 28 mg-folate no.1 1 mg-dha 300 mg capsule (PNV-[place]) cap PO 11/06/22 [History Confirmed 04/16/23] Last Menstrual Period: 01/04/23 Zika: Zika virus screening: Negative : No PFSH PFSH Medical History (Updated 04/16/23 @ 11:06 by Mariah Agrawal) Complete Surgical History (Updated 03/17/23 @ 11:45 by Angelica Beaulieu CNM) Hx of section Family History Grandfather Diabetes Lung cancer Social History adopted: No household members: spouse and children number of children: 1 current occupational status: unemployed pets and animals: No history of recent travel: No sexually active: Yes Smoking Status: Never smoker alcohol intake: former details: ocasional but not while substance use type: does not use well-balanced diet: daily or most days caffeine: Yes Type: tea Number of servings: 1 eating out: 1-3 times/week during the past year weight has: remained stable what type of physical activity do you participate in: walking frequency: 3-4 times per week duration: 15-30 minutes/day jerrica/yazidism: Holiness seatbelt use: always do you feel safe at home: Yes additional social history: - [employer] History 3 Elective abortions Hx Para 1 Spontaneous abortions 1 Hx # Term Pregnancies Ectopic pregnancies Hx # Pregnancies Multiple births # of living children 1 Past Pregnancies Del. Date Name GA/Weeks Outcome Route Bth Weight Gen Labor Lgth Anesthesia Del Locatn Provider FOB 02/16/21 Jose Antonio 41 live - full term 8#1oz Male spin al [facility] Delivery Date: 02/16/21 Last Updated by: Talita Nagel emergency cs due to decels HPI 16 WK OB Details: CLEOPATRA MOTTA is a 27 year old who presents for routine OB visit. OB Visit SREEKANTH Calculator Estimated Delivery Date Method Current WG Current Estimate 10/05/23 Ultrasound #1 15w 3d Other Estimates 10/11/23 LMP (Certain) 14w 4d Expected Delivery Route/Plan patient counseled regarding risks/benefits of trial of labor versus repeat . ACOG/uptodate education given to patient. 70 % likelihood of success per calculator TOLAC consent form signed: Specific Issue/Plans Covid status: [] Flu vaccine: [] Tdap vaccine: [] Rhogam: [] LARC form signed: [] Problem list reviewed and updated with the most current plan of care details and appropriate orders placed. Relevant counseling for the gestational age provided. Continue routine care and follow up unless otherwise noted in visit notes/problem list details Initial Weight: Not Recorded Date -???-???-???-???-???- ???-???-???-???-???-? ??-???- EGA Weight BP Urine Prot -???-???-???-???-???- ???-???-???-???-???-? ??-???- Glucose FHR FuHt Pres Dilation -???-???-???-???-???- ???-???-???-???-???-? ??-???- Effaced St Visit Note 03/17/23 -???-???-???-???-???- ???-???-???-???-???-? ??-???- 11w 1d 129 lb 2 oz 102/69 102/69 -???-???-???-???-???- ???-???-???-???-???-? ??-???- 150 -???-???-???-???-???- ???-???-???-???-???-? ??-???- KW- SREEKANTH adjusted. JV scanned. 04/16/23 -???-???-???-???-???- ???-???-???-???-???-? ??-???- 15w 3d 129 lb 6 oz 122/68 Negative -???-???-???-???-???- ???-???-???-???-???-? ??-???- Negative 145 -???-???-???-???-???- ???-???-???-???-???-? ??-???- KW- PRR. no vb/cramping. US scheduled. having some vaginal irritation-culture done. ACOG First Trimester First Trimester: Desire for , Alcohol, Illicit/Recreational Drug/Substance Use, Intimate Partner Violence, Barriers to care, Unstable Housing, Communication Barriers, Environmental/Work Hazards, Anticipated Course of Care, Toxoplasmosis Precations, Use of Any medications, Sexual activity, Exercise, Dental Care, Sauna/Hot tub use, Seat Belt use, Childbirth classes/Hospital facilities, , Travel, Indicati (more content not included)... Normal [facility] Thin prep Papanicolaou smear with manual screeningOrdered By: Angelica Beaulieu on 04-16-2023 Thin prep Papanicolaou smear with manual screening [facility] Chlamydia/GC JEAN aptimaon CHLAMY,NUC ACID Negative Normal Negative [facility] Comment on above: Performed By: #### L 7000.1800 ####[facility] [address] [place], [place], [address] GC BY NUC ACID Negative Normal Negative [facility] Comment on above: Result Comment: Perf ormed at: =G - [facility] [address] [place] [id number] Animal Scientist: Sadaf Hernandez MD, Phone: [phone] Performed By: #### L 7000.1800 ####[facility] [address] [place], [place], [id number] Culture, urineOrdered By: Dale Beaulieu on 03-19-2023 Bacteria identified Cx Nom (U) Positive [facility] Urine Cultureon 03-19-2023 URC Mixed Gram Positive Organisms [place] Count 11,000-25,000 MIXC Mixed contaminants. Submit a new specimen if indicated. Normal [facility] Comment on above: Performed By: #### M 100.2200 ####[facility] [address] [place], [place], [id number] Absolute lymphocyte countOrd ered By: Angelica Beaulieu on 03-17-2023 Lymphocytes Auto (Unsp spec) [#/Vol] 1.32 10*3/uL 0.83-4.51 [facility] Basophil percentageOrdered B y: Angelica Beaulieu on 03-17-2023 Basophils/100 WBC (Bld) 0.4 % 0-1 [facility] Eosinophils/100 WBC (Bld) 1.2 % 0-5 [facility] Neutrophils (Bld) [#/Vol] 5.6 10*3/uL 2.0-7.7 [facility] Neutrophils/100 WBC (Bld) 74.1 % 47-70 [facility] WBC (Bld) [#/Vol] 7.6 10*3/uL 4.4-11.0 [facility] Blood erythrocytes count (nu mber/volume)Ordered By: Angelica Beaulieu on 03-17-2023 RBC (Bld) [#/Vol] 4.19 10*6/uL 4.2-5.4 [facility] Blood hemoglobin measurement (mass/volume)Ordered By: Angelica Beaulieu on 03-17-2023 Hemoglobin (Bld) [Mass/Vol] 12.1 g/dL 12.0-15.0 [facility] Blood lymphocytes/100 leukoc ytesOrdered By: Angelica Beaulieu on 03-17-2023 Lymphocytes/100 WBC (Bld) 17.5 % 19-41 [facility] Blood monocytes/100 leukocyt esOrdered By: Angelica Beaulieu on 03-17-2023 Monocytes/100 WBC (Bld) 6.1 % 0-10 [facility] Blood platelet mean volumeOr dered By: Angelica Beaulieu on 03-17-2023 Platelet mean volume (Bld) [Entitic vol] 11.4 fL 6.2-12.0 [facility] CBC W/Diff, Automatedon 02-23 Absolute Lymph 1.32 X10 3/uL Normal 0.83-4.51 [facility] Comment on above: Performed By: #### L 509.4005, L100.0100, L509.8000, BTS, L3890.6005, L3890.6100, L3890.6300 ####[facility] [address] [place], [address] Absolute Neut 5.6 X10 3/uL Normal 2.0-7.7 [facility] Comment on above: Performed By: #### L 509.4005, L100.0100, L509.8000, BTS, L3890.6005, L3890.6100, L3890.6300 ####[facility] [address] [place], [address] Basophils/100 WBC (Bld) 0.4 % Normal 0-1 [facility] Comment on above: Performed By: #### L 509.4005, L100.0100, L509.8000, BTS, L3890.6005, L3890.6100, L3890.6300 ####[facility] [address] [place], [address] Eosinophils/100 WBC (Bld) 1.2 % Normal 0-5 [facility] Comment on above: Performed By: #### L 509.4005, L100.0100, L509.8000, BTS, L3890.6005, L3890.6100, L3890.6300 ####[facility] [address] [place], [address] Erythrocyte distribution width (RBC) [Ratio] 12.4 % Normal 11.6-14.6 [facility] Comment on above: Performed By: #### L 509.4005, L100.0100, L509.8000, BTS, L3890.6005, L3890.6100, L3890.6300 ####[facility] [address] [place], [address] Hematocrit (Bld) [Volume fraction] 36.2 % Low 37-47 [facility] Comment on above: Performed By: #### L 509.4005, L100.0100, L509.8000, BTS, L3890.6005, L3890.6100, L3890.6300 ####[facility] [address] [place], [address] Hemoglobin (Bld) [Mass/Vol] 12.1 g/dL Normal 12.0-15.0 [facility] Comment on above: Performed By: #### L 509.4005, L100.0100, L509.8000, BTS, L3890.6005, L3890.6100, L3890.6300 ####[facility] [address] [place], [address] IG% 0.700 Normal 0.0-0.9 [facility] Comment on above: Result Comment: IG% - Immature Granulocytes (promyelocytes, myelocytes and metamyelocytes) > 1% indicates that a LEFT SHIFT is Present. Performed By: #### L 509.4005, L100.0100, L509.8000, BTS, L3890.6005, L3890.6100, L3890.6300 ####[facility] [address] [place], [address] Lymphocytes/100 WBC (Bld) 17.5 % Low 19-41 [facility] Comment on above: Performed By: #### L 509.4005, L100.0100, L509.8000, BTS, L3890.6005, L3890.6100, L3890.6300 ####[facility] [address] [place], [address] MCH (RBC) [Entitic mass] 28.9 pg Normal 27.0-32.0 [facility] Comment on above: Performed By: #### L 509.4005, L100.0100, L509.8000, BTS, L3890.6005, L3890.6100, L3890.6300 ####[facility] [address] [place], [address] MCHC (RBC) [Mass/Vol] 33.4 g/dL Normal 32-36 [facility] Comment on above: Performed By: #### L 509.4005, L100.0100, L509.8000, BTS, L3890.6005, L3890.6100, L3890.6300 ####[facility] [address] [place], [address] MCV (RBC) [Entitic vol] 86.4 fL Normal 81-99 [facility] Comment on above: Performed By: #### L 509.4005, L100.0100, L509.8000, BTS, L3890.6005, L3890.6100, L3890.6300 ####[facility] [address] [place], [address] Monocytes/100 WBC (Bld) 6.1 % Normal 0-10 [facility] Comment on above: Performed By: #### L 509.4005, L100.0100, L509.8000, BTS, L3890.6005, L3890.6100, L3890.6300 ####[facility] [address] [place], [address] Neutrophils/100 WBC (Bld) 74.1 % High 47-70 [facility] Comment on above: Performed By: #### L 509.4005, L100.0100, L509.8000, BTS, L3890.6005, L3890.6100, L3890.6300 ####[facility] [address] [place], [address] Nucleated RBC (Bld) [#/Vol] 0 10*3/uL Normal 0-5 [facility] Comment on above: Performed By: #### L 509.4005, L100.0100, L509.8000, BTS, L3890.6005, L3890.6100, L3890.6300 ####[facility] [address] [place], [address] Platelet mean volume (Bld) [Entitic vol] 11.4 fL Normal 6.2-12.0 [facility] Comment on above: Performed By: #### L 509.4005, L100.0100, L509.8000, BTS, L3890.6005, L3890.6100, L3890.6300 ####[facility] [address] [place], [address] Platelets (Bld) [#/Vol] 255 10*3/uL Normal 150-450 [facility] Comment on above: Performed By: #### L 509.4005, L100.0100, L509.8000, BTS, L3890.6005, L3890.6100, L3890.6300 ####[facility] [address] [place], [address] RBC (Bld) [#/Vol] 4.19 10*6/uL Low 4.2-5.4 [facility] Comment on above: Performed By: #### L 509.4005, L100.0100, L509.8000, BTS, L3890.6005, L3890.6100, L3890.6300 ####[facility] [address] [place], [place], [id number] RDW SD 38.8 fl Normal 35.1-43.9 [facility] Comment on above: Performed By: #### L 509.4005, L100.0100, L509.8000, BTS, L3890.6005, L3890.6100, L3890.6300 ####[facility] [address] [place], [address] WBC (Bld) [#/Vol] 7.6 10*3/uL Normal 4.4-11.0 [facility] Comment on above: Performed By: #### L 509.4005, L100.0100, L509.8000, BTS, L3890.6005, L3890.6100, L3890.6300 ####[facility] [address] [place], [address] Chlamydia trachomatis rRNA d etection by probe and target amplification methodOrdered By: Angelica Beaulieu on 03-17-2023 C. trachomatis rRNA JEAN+probe Ql (Unsp spec) Negative Negative [facility] Culture, urineOrdered By: Dale Beaulieu on 03-17-2023 Bacteria identified Cx Nom (U) Positive [facility] Determination of erythrocyte mean corpuscular volume (MCV)Ordered By: Angelica Beaulieu on 03-17-2023 MCV (RBC) [Entitic vol] 86.4 fL 81-99 [facility] HIV - WCHon 03-17-2023 HIV Non-Reactive Normal Nonreactive [facility] Comment on above: Order Comment: Reaso n for Exam: Performed By: #### L 509.4005, L100.0100, L509.8000, BTS, L3890.6005, L3890.6100, L3890.6300 ####[facility] [address] [place], [address] HIV 1 and HIV-2 antibody ass ay with HIV-1 p24 antigen detectionOrdered By: Angelica Beaulieu on 03-17-2023 HIV 1+2 Ab+HIV1 p24 Ag IA Ql Non-Reactive Nonreactive [facility] Hematocrit Auto (Bld) [Volum e fraction]Ordered By: Angelica Beaulieu on 03-17-2023 Hematocrit (Bld) [Volume fraction] 36.2 % 37-47 [facility] Hepatitis B Surface Antigeno n 03-17-2023 HEP B Surf Ag Non-Reactive Normal [facility] Comment on above: Order Comment: Reaso n for Exam: Performed By: #### L 509.4005, L100.0100, L509.8000, BTS, L3890.6005, L3890.6100, L3890.6300 ####[facility] [address] [place], [address] Hepatitis C Antibodyon 03-17 Hepatitis C Ab Non-Reactive Normal [facility] Comment on above: Order Comment: Reaso n for Exam: Result Comment: Non Reactive: < 0.8 Equivocal: >/= 0.8 to < 1.0 Reactive: >/= 1.0 The CDC recommends that a reactive/equivocal HCV antibody result be followed up by the HCV Nucleic Acid Amplification test (172565) Performed By: #### L 509.4005, L100.0100, L509.8000, BTS, L3890.6005, L3890.6100, L3890.6300 ####[facility] [address] [place], [address] L509.8000on 03-17-2023 Syphilis Abs Non-Reactive Normal [facility] Comment on above: Order Comment: Reaso n for Exam: Performed By: #### L 509.4005, L100.0100, L509.8000, BTS, L3890.6005, L3890.6100, L3890.6300 ####[facility] [address] [place], [address] Laboratory - Hematology and Cell countsOrdered By: Angelica Beaulieu on 03-17-2023 Erythrocyte distribution width (RBC) [Entitic vol] 38.8 fL 35.1-43.9 [facility] Erythrocyte distribution width (RBC) [Ratio] 12.4 % 11.6-14.6 [facility] Immature granulocytes/100 WBC (Bld) 0.700 % 0.0-0.9 [facility] Comment on above: IG% - Immature Granu locytes (promyelocytes, myelocytes and metamyelocytes) > 1% indicates that a LEFT SHIFT is Present. MCH (RBC) [Entitic mass] 28.9 pg 27.0-32.0 [facility] Nucleated RBC/100 WBC (Bld) [Ratio] 0 % 0-5 [facility] Laboratory - Microbiology an d Antimicrobial susceptibilityOrdered By: Angelica Beaulieu on 03-17-2023 N. gonorrhoeae DNA JEAN+probe Ql (Unsp spec) Negative Negative [facility] Comment on above: Performed at: =[address] [id number] Director: Sadaf Hernandez MD, Phone: [phone] MCHC Auto (RBC) [Mass/Vol]Or dered By: Angelica Beaulieu on 03-17-2023 MCHC (RBC) [Mass/Vol] 33.4 g/dL 32-36 [facility] No Panel InformationOrdered By: Angelica Beaulieu on 03-17-2023 Hepatitis B Surface Antigen Non-Reactive Nonreactive [facility] Hepatitis C Antibody Non-Reactive Nonreactive [facility] Comment on above: Non Reactive: < 0.8 Equivocal: >/= 0.8 to < 1.0 Reactive: >/= 1.0The CDC recommends that a reactive/equivocal HCV antibody result be followed up by the HCV Nucleic Acid Amplificationtest (634272) Rubella IgG Antibody Reactive Nonreactive [facility] Comment on above: Antibody Results Int erpretation of Immune Status Non Reactive Presumed Non-Immune Equivocal Equivocal Reactive Presumed Immune [employer] Office Visit Reporton 03-17-2023 [employer] Office Visit Report [facility] [place] [address] [place] [address] OFFICE VISIT Date of Service: 03/17/23 MR#: [id number] Acct: [id number] Name: CLEOPATRA MOTTA Rep #: [id number] : 1995 Provider: JD Gurrola ams Age/Sex: 27/F Location[facility] Status: Signed Intake Vital Signs 03/17/23 11:19 03/17/23 11:21 Height 5 ft 1 in 5 ft 1 in Weight: 129 lb 2 oz BMI 24.4 BP 102/69 Intake Visit Reasons: NOB LMP: 01/04 , ok per KW Allergies No Known Allergies Allergy (Verified 03/17/23 11:20) Last Menstrual Period: 01/04/23 PFSH PFSH Medical History (Updated 03/17/23 @ 11:45 by Angelica Beaulieu CNM) Complete Surgical History (Updated 03/17/23 @ 11:45 by Angelica Beaulieu CNM) Hx of section Family History Grandfather Diabetes Lung cancer Social History adopted: No household members: spouse and children number of children: 1 current occupational status: unemployed pets and animals: No history of recent travel: No sexually active: Yes Smoking Status: Never smoker alcohol intake: former details: ocasional but not while substance use type: does not use well-balanced diet: daily or most days caffeine: Yes Type: tea Number of servings: 1 eating out: 1-3 times/week during the past year weight has: remained stable what type of physical activity do you participate in: walking frequency: 3-4 times per week duration: 15-30 minutes/day jerrica/yazidism: Holiness seatbelt use: always do you feel safe at home: Yes additional social history: - [employer] History 3 Elective abortions Hx Para 1 Spontaneous abortions 1 Hx # Term Pregnancies Ectopic pregnancies Hx # Pregnancies Multiple births # of living children 1 Past Pregnancies Del. Date Name GA/Weeks Outcome Route Bth Weight Infant Gen Labor Lgth Anesthesia Del Locatn Provider FOB 02/16/21 Jose Antonio 41 live - full term 8#1oz Male spin al [facility] Delivery Date: 02/16/21 Last Updated by: Talita Nagel emergency cs due to decels HPI NOB LMP: 01/04 , ok per KW Details: CLEOPATRA MOTTA is a 27 year old who presents for New OB visit. OB Visit SREEKANTH Calculator Estimated Delivery Date Method Current WG Current Estimate 10/05/23 Ultrasound #1 11w 1d Other Estimates 10/11/23 LMP (Certain) 10w 2d Estimated Due Date: 10/11/23 Expected Delivery Route/Plan patient counseled regarding risks/benefits of trial of labor versus repeat . ACOG/uptodate education given to patient. 70 % likelihood of success per calculator TOLAC consent form signed: Specific Issue/Plans Covid status: [] Flu vaccine: [] Tdap vaccine: [] Rhogam: [] LARC form signed: [] Problem list reviewed and updated with the most current plan of care details and appropriate orders placed. Relevant counseling for the gestational age provided. Continue routine care and follow up unless otherwise noted in visit notes/problem list details Initial Weight: Not Recorded Date -???-???-???-???-???- ???-???-???-???-???-? ??-???- EGA Weight BP Urine Prot -???-???-???-???-???- ???-???-???-???-???-? ??-???- Glucose FHR FuHt Pres Dilation -???-???-???-???-???- ???-???-???-???-???-? ??-???- Effaced St Visit Note 03/17/23 -???-???-???-???-???- ???-???-???-???-???-? ??-???- 11w 1d 129 lb 2 oz 102/69 102/69 -???-???-???-???-???- ???-???-???-???-???-? ??-???- 150 -???-???-???-???-???- ???-???-???-???-???-? ??-???- KW- SREEKANTH adjusted. JV scanned. Menstrual History Last Menstrual Period: 01/04/23 Reported LMP: definite Normal amount/duration: Yes Antepartum Record Genetic Screening: Congenital Heart Defect: Other, Neural Tube Defect: Other, Hemoglobinopathy Or Carrier: Other, Cystic Fibrosis: Other, Chromosome Abnormality: Other, Dioni-Sachs: Other, Hemophilia: Other, Intellectual Disability/Autism: Other, Recurrent Loss/Stillbirth: Other, Other Structural Defect: Other, Other Genetic Disease: Other and Maternal Metabolic Disorder: Other Infection History: Live with someone with TB or Exposed to TB: No, Patient or Partner has history of Genital Herpes: No, Rash or Viral illness since last mentrual period: No, Prior GBS-Infected child: No, History of STD: No, HIV Infection: No, History of Hepatitis: No, 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 Normal [facility] [employer] Work[employer] Office Visit Report [facility] [address] [place] [address] [address] [place] [address] OFFICE VISIT Date of Service: 03/17/23 MR#: [id number] Acct: [id number] Name: CLEOPATRA MOTTA Rep #: [id number] : 1995 Provider: JD Gurrola ams Age/Sex: 27/F Location: [facility] Status: Signed Intake Vital Signs 03/17/23 11:19 03/17/23 11:21 03/17/23 11:31 Height 5 ft 1 in 5 ft 1 in 5 ft 1 in Weight: 129 lb 2 oz BMI 24.4 24.4 BP 102/69 102/69 Intake Visit Reasons: NOB LMP: 01/04 , ok per KW Diesel Inspector Required: No Is patient in pain?: No Allergies No Known Allergies Allergy (Verified 03/17/23 11:20) Last Menstrual Period: 08/25/22 Zika: Zika virus screening: Negative : No PFSH PFSH Medical History (Updated 03/17/23 @ 11:45 by Angelica Beaulieu CNM) Complete Surgical History (Updated 03/17/23 @ 11:45 by Angelica Beaulieu CNM) Hx of section Family History Grandfather Diabetes Lung cancer Social History adopted: No household members: spouse and children number of children: 1 current occupational status: unemployed pets and animals: No history of recent travel: No sexually active: Yes Smoking Status: Never smoker alcohol intake: former details: ocasional but not while substance use type: does not use well-balanced diet: daily or most days caffeine: Yes Type: tea Number of servings: 1 eating out: 1-3 times/week during the past year weight has: remained stable what type of physical activity do you participate in: walking frequency: 3-4 times per week duration: 15-30 minutes/day jerrica/yazidism: Holiness seatbelt use: always do you feel safe at home: Yes additional social history: - [employer] History 3 Elective abortions Hx Para 1 Spontaneous abortions 1 Hx # Term Pregnancies Ectopic pregnancies Hx # Pregnancies Multiple births # of living children 1 Past Pregnancies Del. Date Name GA/Weeks Outcome Route Bth Weight Infant Gen Labor Lgth Anesthesia Del Locatn Provider FOB 02/16/21 Jose Antonio 41 live - full term 8#1oz Male spin al [facility] Delivery Date: 02/16/21 Last Updated by: Talita Nagel emergency cs due to decels HPI NOB LMP: 3 , ok per KW Details: CLEOPATRA MOTTA is a 27 year old who presents for New OB visit. OB Visit SREEKANTH Calculator Estimated Delivery Date Method Current WG Current Estimate 10/05/23 Ultrasound #1 11w 1d Other Estimates 10/11/23 LMP (Certain) 10w 2d Estimated Due Date: 06/01/23 Expected Delivery Route/Plan patient counseled regarding risks/benefits of trial of labor versus repeat . ACOG/uptodate education given to patient. 70 % likelihood of success per calculator TOLAC consent form signed: Specific Issue/Plans Covid status: [] Flu vaccine: [] Tdap vaccine: [] Rhogam: [] LARC form signed: [] Problem list reviewed and updated with the most current plan of care details and appropriate orders placed. Relevant counseling for the gestational age provided. Continue routine care and follow up unless otherwise noted in visit notes/problem list details Initial Weight: Not Recorded Date -???-???-???-???-???- ???-???-???-???-???-? ??-???- EGA Weight BP Urine Prot -???-???-???-???-???- ???-???-???-???-???-? ??-???- Glucose FHR FuHt Pres Dilation -???-???-???-???-???- ???-???-???-???-???-? ??-???- Effaced St Visit Note 03/17/23 -???-???-???-???-???- ???-???-???-???-???-? ??-???- 11w 1d 129 lb 2 oz 102/69 102/69 -???-???-???-???-???- ???-???-???-???-???-? ??-???- 150 -???-???-???-???-???- ???-???-???-???-???-? ??-???- KW- SREEKANTH adjusted. JV scanned. Menstrual History Last Menstrual Period: 08/25/22 ACOG First Trimester First Trimester: Discussed Coding Level of Care Code OB Routine Diagnoses Complete O03.9 Hx of section Z98.891 Anemia D64.9 Supervision of high risk , antepartum O09.90 Z34.90 Assessment and Plan Assessment and Plan (1) Complete : Status: Inactive (2) Hx of section: Status: Acute Comment: emergency due to decels at 41 weeks, desires TOLAC (3) Anemia: Status: Acute Comment: encouraged Fe use (4) Supervision of high risk , antepartum: Status: Acute Comment: , SREEKANTH 10/11/23 PC Jose Antonio, Dandre (5) : Status: Acute Comment: declines genetic carrier testing Orders: Orders Type Screen Today O09.90 - Supervision of high risk , unspecified, unspecified trimester, (more content not included)... Normal [facility] Platelets bldOrdered By: Rush Beaulieu on 03-17-2023 Platelets (Bld) [#/Vol] 255 10*3/uL 150-450 [facility] Rubella IgGon 03-17-2023 Rubella IgG Reactive Normal Nonreactive [facility] Comment on above: Order Comment: Reaso n for Exam: Result Comment: Anti body Results Interpretation of Immune Status Non Reactive Presumed Non-Immune Equivocal Equivocal Reactive Presumed Immune Performed By: #### L 509.4005, L100.0100, L509.8000, BTS, L3890.6005, L3890.6100, L3890.6300 ####[facility] [address] [place], [place], [id number] Serum Treponema species anti body detectionOrdered By: Angelica Beaulieu on 03-17-2023 Treponema sp Ab Ql (S) Non-Reactive [facility] Type AND Screenon 03-17-2023 Ab SCREEN GEL Negative Normal [facility] Comment on above: Order Comment: PN Performed By: #### L 509.4005, L100.0100, L509.8000, BTS, L3890.6005, L3890.6100, L3890.6300 ####[facility] [address] [place], [place], [id number] ABO and Rh group Nom (Bld) Blood group A Rh(D) positive [facility] Comment on above: Order Comment: PN Performed By: #### L 509.4005, L100.0100, L509.8000, BTS, L3890.6005, L3890.6100, L3890.6300 ####[facility] [address] [place], [address] Serum or plasma choriogonado tropin detectionOrdered By: Dr. Perales on 11-20-2022 HCG ( test) Ql 48 mIU/mL <4 [facility] Comment on above: hCG levels with Gest ational AgeGestational Age hCG mIU/mL (IU/L)0.2 - 1 week 5 - 501-2 weeks 50 - 5002-3 weeks 100 - 44620-5 weeks 500 - 006541-9 weeks 1000 - 633257-3 weeks 59966 - 100,0006-8 weeks 84134 - 200,0002-3 months 68851 - 100,000 Serum or plasma choriogonado tropin detectionOrdered By: Dr. Perales on 11-12-2022 HCG ( test) Ql 1280 mIU/mL <4 [facility] Comment on above: hCG levels with Gest ational AgeGestational Age hCG mIU/mL (IU/L)0.2 - 1 week 5 - 501-2 weeks 50 - 5002-3 weeks 100 - 49897-6 weeks 500 - 570263-0 weeks 1000 - 565285-0 weeks 48494 - 100,0006-8 weeks 08770 - 200,0002-3 months 81210 - 100,000 Absolute lymphocyte countOrd ered By: Dr. Ramos on 11-10-2022 Lymphocytes Auto (Unsp spec) [#/Vol] 1.28 10*3/uL 0.83-4.51 [facility] Basophil percentageOrdered B y: Dr. Ramos on 11-10-2022 Basophils/100 WBC (Bld) 0.3 % 0-1 [facility] Eosinophils/100 WBC (Bld) 0.6 % 0-5 [facility] Neutrophils (Bld) [#/Vol] 10.7 10*3/uL 2.0-7.7 [facility] Neutrophils/100 WBC (Bld) 83.3 % 47-70 [facility] WBC (Bld) [#/Vol] 12.8 10*3/uL 4.4-11.0 [facility] Blood erythrocytes count (nu mber/volume)Ordered By: Dr. Ramos on 11-10-2022 RBC (Bld) [#/Vol] 4.76 10*6/uL 4.2-5.4 [facility] Blood hemoglobin measurement (mass/volume)Ordered By: Dr. Ramos on 11-10-2022 Hemoglobin (Bld) [Mass/Vol] 13.8 g/dL 12.0-15.0 [facility] Blood lymphocytes/100 leukoc ytesOrdered By: Dr. Ramos on 11-10-2022 Lymphocytes/100 WBC (Bld) 10.0 % 19-41 [facility] Blood monocytes/100 leukocyt esOrdered By: Dr. Ramos on 11-10-2022 Monocytes/100 WBC (Bld) 5.4 % 0-10 [facility] Blood platelet mean volumeOr dered By: Dr. Ramos on 11-10-2022 Platelet mean volume (Bld) [Entitic vol] 10.5 fL 6.2-12.0 [facility] Determination of erythrocyte mean corpuscular volume (MCV)Ordered By: Dr. Ramos on 11-10-2022 MCV (RBC) [Entitic vol] 83.8 fL 81-99 [facility] Hematocrit Auto (Bld) [Volum e fraction]Ordered By: Dr. Ramos on 11-10-2022 Hematocrit (Bld) [Volume fraction] 39.9 % 37-47 [facility] Laboratory - Hematology and Cell countsOrdered By: Dr. Ramos on 11-10-2022 Erythrocyte distribution width (RBC) [Entitic vol] 36.8 fL 35.1-43.9 [facility] Erythrocyte distribution width (RBC) [Ratio] 12.1 % 11.6-14.6 [facility] Immature granulocytes/100 WBC (Bld) 0.400 % 0.0-0.9 [facility] Comment on above: IG% - Immature Granu locytes (promyelocytes, myelocytes and metamyelocytes) > 1% indicates that a LEFT SHIFT is Present. MCH (RBC) [Entitic mass] 29.0 pg 27.0-32.0 [facility] Nucleated RBC/100 WBC (Bld) [Ratio] 0 % 0-5 [facility] Auto (RBC) [Mass/Vol]Or dered By: Dr. Ramos on 11-10-2022 MCHC (RBC) [Mass/Vol] 34.6 g/dL 32-36 [facility] Platelets bldOrdered By: Dr. Ramos on 11-10-2022 Platelets (Bld) [#/Vol] 296 10*3/uL 150-450 [facility] Serum or plasma choriogonado tropin detectionOrdered By: Dr. Ramos on 11-10-2022 HCG ( test) Ql 5855 mIU/mL <4 [facility] Comment on above: hCG levels with Gest ational AgeGestational Age hCG mIU/mL (IU/L)0.2 - 1 week 5 - 501-2 weeks 50 - 5002-3 weeks 100 - 08066-0 weeks 500 - 962795-8 weeks 1000 - 739349-3 weeks 18005 - 100,0006-8 weeks 23929 - 200,0002-3 months 21790 - 100,000 Vital Signs Date Time Vital Sign Value Performing Clinician Faci lity 11-19-2023 10:27-0500 Body height 154.94 cm No Primary Care Physician [facility] 11-19-2023 10:27-0500 Body mass index (BMI) [Ratio] 24.5 kg/m2 No Primary Care Physician [facility] 11-19-2023 10:27-0500 Body weight 58.96 kg No Primary Care Physician [facility] 11-19-2023 10:27-0500 Diastolic blood pressure 64 mm[Hg] No Primary Care Physician [facility] 11-19-2023 10:27-0500 Systolic blood pressure 100 mm[Hg] No Primary Care Physician [facility] 10-12-2023 12:43-0500 Diastolic blood pressure 75 mm[Hg] No Primary Care Physician [facility] 10-12-2023 12:43-0500 Heart rate 69 /min No Primary Care Physician [facility] 10-12-2023 12:43-0500 Systolic blood pressure 123 mm[Hg] No Primary Care Physician [facility] 10-12-2023 12:30-0500 Body temperature 97.3 [degF] No Primary Care Physician [facility] 10-12-2023 12:30-0500 Respiratory rate 16 /min No Primary Care Physician [facility] 10-12-2023 03:46-0500 SaO2% (BldA) [Mass fraction] 96 % No Primary Care Physician [facility] 10-11-2023 09:40-0500 Body height 154.94 cm No Primary Care Physician [facility] 10-11-2023 09:40-0500 Body mass index (BMI) [Ratio] 27.9 kg/m2 No Primary Care Physician [facility] 10-11-2023 09:40-0500 Body weight 67.13 kg No Primary Care Physician [facility] 10-11-2023 09:12-0500 Diastolic blood pressure 84 mm[Hg] No Primary Care Physician [facility] 10-11-2023 09:12-0500 Systolic blood pressure 120 mm[Hg] No Primary Care Physician [facility] 10-05-2023 09:04-0500 Body mass index (BMI) [Ratio] 28.1 kg/m2 No Primary Care Physician [facility] 10-05-2023 09:04-0500 Body weight 67.64 kg No Primary Care Physician [facility] 10-05-2023 09:04-0500 Diastolic blood pressure 65 mm[Hg] No Primary Care Physician [facility] 10-05-2023 09:04-0500 Systolic blood pressure 100 mm[Hg] No Primary Care Physician [facility] 09-27-2023 10:29-0500 Body mass index (BMI) [Ratio] 27.8 kg/m2 No Primary Care Physician [facility] 09-27-2023 10:29-0500 Body weight 66.73 kg No Primary Care Physician [facility] 09-27-2023 10:29-0500 Diastolic blood pressure 66 mm[Hg] No Primary Care Physician [facility] 09-27-2023 10:29-0500 Systolic blood pressure 113 mm[Hg] No Primary Care Physician [facility] 09-21-2023 10:26-0500 Body height 154.94 cm No Primary Care Physician [facility] 09-21-2023 10:23-0500 Body mass index (BMI) [Ratio] 27.8 kg/m2 No Primary Care Physician [facility] 09-21-2023 10:23-0500 Body weight 66.9 kg No Primary Care Physician [facility] 09-21-2023 10:23-0500 Diastolic blood pressure 59 mm[Hg] No Primary Care Physician [facility] 09-21-2023 10:23-0500 Systolic blood pressure 96 mm[Hg] No Primary Care Physician [facility] 09-13-2023 09:45-0500 Body height 154.94 cm No Primary Care Physician [facility] 09-13-2023 09:45-0500 Body mass index (BMI) [Ratio] 28.2 kg/m2 No Primary Care Physician [facility] 09-13-2023 09:45-0500 Body weight 67.69 kg No Primary Care Physician [facility] 09-13-2023 09:45-0500 Diastolic blood pressure 63 mm[Hg] No Primary Care Physician [facility] 09-13-2023 09:45-0500 Systolic blood pressure 103 mm[Hg] No Primary Care Physician [facility] 08-24-2023 09:48-0400 Body mass index (BMI) [Ratio] 28 kg/m2 No Primary Care Physician [facility] 08-24-2023 09:48-0400 Body weight 67.18 kg No Primary Care Physician [facility] 08-24-2023 09:48-0400 Diastolic blood pressure 63 mm[Hg] No Primary Care Physician [facility] 08-24-2023 09:48-0400 Systolic blood pressure 97 mm[Hg] No Primary Care Physician [facility] 08-10-2023 09:46-0400 Body mass index (BMI) [Ratio] 26.9 kg/m2 No Primary Care Physician [facility] 08-10-2023 09:46-0400 Body weight 64.63 kg No Primary Care Physician [facility] 08-10-2023 09:46-0400 Diastolic blood pressure 60 mm[Hg] No Primary Care Physician [facility] 08-10-2023 09:46-0400 Systolic blood pressure 103 mm[Hg] No Primary Care Physician [facility] 07-26-2023 09:50-0400 Body mass index (BMI) [Ratio] 26.3 kg/m2 No Primary Care Physician [facility] 07-26-2023 09:50-0400 Body temperature 98.1 [degF] No Primary Care Physician [facility] 07-26-2023 09:50-0400 Body weight 63.27 kg No Primary Care Physician [facility] 07-26-2023 09:50-0400 Diastolic blood pressure 53 mm[Hg] No Primary Care Physician [facility] 07-26-2023 09:50-0400 Heart rate 67 /min No Primary Care Physician [facility] 07-26-2023 09:50-0400 Respiratory rate 16 /min No Primary Care Physician [facility] 07-26-2023 09:50-0400 SaO2% (BldA) [Mass fraction] 99 % No Primary Care Physician [facility] 07-26-2023 09:50-0400 Systolic blood pressure 95 mm[Hg] No Primary Care Physician [facility] 06-25-2023 15:18-0400 Body weight 61.68 kg No Primary Care Physician [facility] 06-25-2023 15:18-0400 Diastolic blood pressure 53 mm[Hg] No Primary Care Physician [facility] 06-25-2023 15:18-0400 Systolic blood pressure 99 mm[Hg] No Primary Care Physician [facility] 06-25-2023 14:46-0400 Body height 154.94 cm No Primary Care Physician [facility] 05-10-2023 14:49-0400 Body mass index (BMI) [Ratio] 25.7 kg/m2 No Primary Care Physician [facility] 05-10-2023 14:26-0400 Body mass index (BMI) [Ratio] 24.5 kg/m2 No Primary Care Physician [facility] 05-10-2023 14:26-0400 Body weight 59.02 kg No Primary Care Physician [facility] 05-10-2023 14:26-0400 Diastolic blood pressure 72 mm[Hg] No Primary Care Physician [facility] 05-10-2023 14:26-0400 Systolic blood pressure 111 mm[Hg] No Primary Care Physician [facility] 04-16-2023 11:05-0400 Body height 154.94 cm No Primary Care Physician [facility] 04-16-2023 11:05-0400 Body mass index (BMI) [Ratio] 24.4 kg/m2 No Primary Care Physician [facility] 04-16-2023 11:05-0400 Body weight 58.68 kg No Primary Care Physician [facility] 04-16-2023 11:05-0400 Diastolic blood pressure 68 mm[Hg] No Primary Care Physician [facility] 04-16-2023 11:05-0400 Systolic blood pressure 122 mm[Hg] No Primary Care Physician [facility] 03-17-2023 11:31-0400 Body height 154.94 cm No Primary Care Physician [facility] 03-17-2023 11:31-0400 Body mass index (BMI) [Ratio] 24.4 kg/m2 No Primary Care Physician [facility] 03-17-2023 11:31-0400 Diastolic blood pressure 69 mm[Hg] No Primary Care Physician [facility] 03-17-2023 11:31-0400 Systolic blood pressure 102 mm[Hg] No Primary Care Physician [facility] 03-17-2023 11:19-0400 Body weight 58.57 kg No Primary Care Physician [facility] 11-11-2022 16:07-0500 Body height 154.94 cm No Primary Care Physician [facility] 11-11-2022 16:07-0500 Body mass index (BMI) [Ratio] 24.7 kg/m2 No Primary Care Physician [facility] 11-11-2022 16:07-0500 Body weight 59.42 kg No Primary Care Physician [facility] 11-11-2022 16:07-0500 Diastolic blood pressure 77 mm[Hg] No Primary Care Physician [facility] 11-11-2022 16:07-0500 Systolic blood pressure 125 mm[Hg] No Primary Care Physician [facility] Encounters Encounter Date Encounter Type Care Provider Facility Start: 11-19-2023 End: 11-19-2023 Patient encounter procedure No Primary Care Physician [facility] Spec[facility] Work Phone: Start: 11-19-2023 End: 11-19-2023 ambulatory No Primary Care Physician [facility] Work Phone: Start: 11-19-2023 End: 11-19-2023 ambulatory No Primary Care Physician Facility:[facility] Start: 11-19-2023 End: 11-19-2023 Patient encounter procedure No Primary Care Physician [facility] Work Phone: Start: 10-12-2023 Non-patient / Non-visit No Primary Care Physician [facility] Start: 10-11-2023 Non-patient / Non-visit No Primary Care Physician [facility] Start: 10-11-2023 End: 10-12-2023 Evaluation and management of inpatient Varshaalvaro Ramos Facility:[facility] Start: 10-11-2023 End: 10-11-2023 ambulatory No Primary Care Physician Facility:[facility] Start: 10-11-2023 End: 10-12-2023 Evaluation and management of inpatient No Primary Care Physician [facility] Work Phone: Start: 10-11-2023 End: 10-11-2023 Patient encounter procedure No Primary Care Physician [facility] Work Phone: Start: 10-05-2023 End: 10-05-2023 ambulatory Varsha Ramos Facility:[facility] Start: 10-05-2023 End: 10-05-2023 Patient encounter procedure No Primary Care Physician [facility] Work Phone: Start: 09-27-2023 End: 09-27-2023 ambulatory Teresa Short Facility:[facility] Start: 09-27-2023 End: 09-27-2023 Patient encounter procedure No Primary Care Physician [facility] Work Phone: Start: 09-21-2023 End: 09-21-2023 ambulatory Varsha Ramos Facility:[facility] Start: 09-21-2023 End: 09-21-2023 ambulatory No Primary Care Physician [facility] Work Phone: Start: 09-21-2023 End: 09-21-2023 Patient encounter procedure No Primary Care Physician [facility] Work Phone: Start: 09-13-2023 End: 09-13-2023 ambulatory No Primary Care Physician [facility] Work Phone: Start: 09-13-2023 End: 09-13-2023 Patient encounter procedure No Primary Care Physician [facility] Work Phone: Start: 09-13-2023 End: 09-13-2023 ambulatory Teresa Short Facility:[facility] Start: 09-13-2023 End: 09-13-2023 Patient encounter procedure No Primary Care Physician [facility] Work Phone: Start: 08-24-2023 End: 08-24-2023 ambulatory No Primary Care Physician Facility:[facility] Start: 08-24-2023 End: 08-24-2023 Patient encounter procedure No Primary Care Physician [facility] Work Phone: Start: 08-10-2023 End: 08-10-2023 ambulatory No Primary Care Physician Facility:[facility] Start: 08-10-2023 End: 08-10-2023 Patient encounter procedure No Primary Care Physician [facility] Work Phone: Start: 07-26-2023 End: 07-26-2023 ambulatory No Primary Care Physician Facility:[facility] Start: 07-26-2023 End: 07-26-2023 Patient encounter procedure No Primary Care Physician [facility] Start: 07-15-2023 End: 07-15-2023 ambulatory No Primary Care Physician [facility] Work Phone: Start: 07-15-2023 End: 07-15-2023 Patient encounter procedure No Primary Care Physician [facility] Start: 06-25-2023 End: 06-25-2023 ambulatory No Primary Care Physician Facility:[facility] Start: 06-25-2023 End: 06-25-2023 Patient encounter procedure No Primary Care Physician [facility] Work Phone: Start: 05-11-2023 End: 05-11-2023 ambulatory No Primary Care Physician [facility] Work Phone: Start: 05-11-2023 End: 05-11-2023 Patient encounter procedure No Primary Care Physician [facility]ound Work Phone: Start: 05-10-2023 End: 05-10-2023 ambulatory No Primary Care Physician Facility:[facility] Start: 05-10-2023 End: 05-10-2023 Patient encounter procedure No Primary Care Physician [facility] Work Phone: Start: 04-16-2023 End: 04-16-2023 ambulatory No Primary Care Physician [facility] Work Phone: Start: 04-16-2023 End: 04-16-2023 Patient encounter procedure No Primary Care Physician [facility] Work Phone: Start: 04-16-2023 End: 04-16-2023 Patient encounter procedure No Primary Care Physician [facility] Work Phone: Start: 03-17-2023 End: 03-17-2023 ambulatory No Primary Care Physician [facility] Work Phone: Start: 03-17-2023 End: 03-17-2023 Patient encounter procedure No Primary Care Physician [facility] Start: 03-17-2023 End: 03-17-2023 Patient encounter procedure No Primary Care Physician [facility] Start: 11-20-2022 End: 11-20-2022 ambulatory No Primary Care Physician [facility] Work Phone: Start: 11-20-2022 End: 11-20-2022 Patient encounter procedure No Primary Care Physician [facility] Start: 11-12-2022 End: 11-12-2022 ambulatory No Primary Care Physician [facility] Work Phone: Start: 11-12-2022 End: 11-12-2022 Patient encounter procedure No Primary Care Physician [facility] Start: 11-11-2022 End: 11-11-2022 Patient encounter procedure No Primary Care Physician [facility] Start: 11-10-2022 End: 11-10-2022 ambulatory No Primary Care Physician [facility] Work Phone: Start: 11-10-2022 End: 11-10-2022 Patient encounter procedure No Primary Care Physician [facility] Procedures Date Procedure Procedure Detail Performing Clinician Start: 09-21-2023 Ultrasound scan for growth No Primary Care Physician Start: 09-13-2023 Group B Streptococcus Culture No Primary Care Physician Start: 05-11-2023 anatomy study No Primary Care Physician Start: 04-16-2023 Cytopathology procedure, preparation of smear, genital source No Primary Care Physician Start: 04-16-2023 Investigation of transfusion reaction No Primary Care Physician Start: 03-17-2023 Urine culture No Primary Care Physician Start: 11-10-2022 Transvaginal obstetric ultrasonography No Primary Care Physician H/O: section Hx of cesa rean section No Primary Care Physician Urine culture No Primary Car e Physician Plan of Treatment Date Care Activity Detail Author Start: 11-19-2023 Liquid based cervica l cytology screening [facility] Start: 10-12-2023 Patient discharge [facility] Start: 10-11-2023 Administration of medication [facility] Start: 10-11-2023 Application of ice c ollar, cap or bag [facility] Start: 10-11-2023 Catheterization of vein [facility] Start: 10-11-2023 Introduction of urin adriel catheter [facility] Start: 10-11-2023 Measuring intake and output [facility] Start: 10-11-2023 Notification of physician [facility] Start: 10-11-2023 Procedure discontinued [facility] Start: 10-11-2023 Provision of activit y privileges [facility] Start: 10-11-2023 Vital signs measurements [facility] Start: 10-11-2023 [facility] Start: 10-11-2023 Admission procedure [facility] anatomy study [facility] Path report.final Dx Spec [facility] Patient Education After a Vagina l [facility] Work Phone: Patient referral [facility] Work Phone: Transvaginal obstetr ic ultrasonography [facility] Payers Date Payer Category Payer Unknown 2023 Unknown [id number] 2023 Self-pay Unknown [id number] 2.16.8 [id number] Unknown [id number] 2.16.8 [id number] Unknown [id number] 2.16.8 [id number] Unknown [id number] 2.16.8 [id number] Unknown [id number] 2.16.8 40.1.238230.3.579.2.462 Unknown [id number] 2.16.8 40.1.038454.3.579.2.462 Unknown [id number] 2.16.8 40.1.392917.3.579.2.462 Unknown [id number] 2.16.8 40.1.089423.3.579.2.462 Unknown [id number] 2.16.8 40.1.064598.3.579.2.462 Unknown [id number] 2.16.8 40.1.298623.3.579.2.462 Unknown [id number] 2.16.8 40.1.445889.3.579.2.462 Unknown [id number] 2.16.8 40.1.794145.3.579.2.462 Unknown [id number] 2.16.8 40.1.384529.3.579.2.462 Unknown [id number] 2.16.8 40.1.767408.3.579.2.462 Unknown [id number] 2.16.8 40.1.391937.3.579.2.462 Unknown [id number] 2.16.8 40.1.234537.3.579.2.462 Unknown [id number] 2.16.8 40.1.197720.3.579.2.462 Unknown [id number] 2.16.8 40.1.067395.3.579.2.462 Unknown [id number] 2.16.8 40.1.776679.3.579.2.462 Unknown [id number] 2.16.8 40.1.613883.3.579.2.462 Unknown [id number] 2.16.8 40.1.250849.3.579.2.462 Unknown [id number] 2.16.8 40.1.654618.3.579.2.462 Unknown [id number] 2.16.8 40.1.889622.3.579.2.462 Social History Date Type Detail Facility Start: 11-11-2022 End: 11-19-2023 Tobacco smoking status NHIS Unknown if ever smoked [facility] Start: 1995 Sex Assigned At Female [facility] Goals Date Patient Goal Desired Activity /State Clinical Notes 10-11-2023 to 10-12-2023 Note Date & Type Note Facility 10-12-2023 Progress note Note Date/Time October 12, 2023 12:37pm [facility] Medical Records Department [address] [place] [id number] Progress Note - OBGYN 10/12/23 1236 MR#: [id number] Acct: [id number] Name: CLEOPATRA MOTTA Rep #:[id number] : 1995 28 From: Varsha watkins MD PCP: Care Physician,No Primary Status :ADM IN Location: TG229-6 Subjective Subjective Patient doing well without complaints. Tolerating PO. Ambulating and voiding without difficulty. infant feeding well. Denies chest pain, shortness of breath,calf pain/swelling, fevers, chills, lightheadedness. Objective Data Objective Data Vital Signs: Vital Signs Temp Pulse Resp BP Pulse Ox O2 Del Method 97.3 F L 69 16 95/48 L 96 Room Air 10/12/23 08:55 10/12/23 09:03 10/12/23 08:55 10/12/23 09:03 10/12/23 03:46 10/12/23 03:46 Oxygen Delivery Method Room Air Weight: 148 lb Body Mass Index (BMI) 27.9 Intake & Output: Intake and Output for Last 24 Hours 10/10/23 10/11/23 10/12/23 23:59 23:59 23:59 Intake Total 1446.67 / 1446.67 Output Total 2800 / 2800 500 / 500 Balance -1353.33 / -1353.33 -500 / -500 Lab / Micro Data 10/11/23 10:00 ROS Constitutional Constitutional: Reports systems reviewed and no addt'l complaints, except as documented Cardiovascular Cardiovascular: Reports systems reviewed and no addt'l complaints, except as documented Respiratory/Chest Respiratory/Chest: Reports systems reviewed and no addt'l complaints, except as documented Gastrointestinal Gastrointestinal: Reports systems reviewed and no addt'l complaints, except as documented Physical Exam Const alert, oriented x3 and no apparent distress HEENT Head and Scalp: atraumatic Resp normal respiratory effort GI soft to palpation and non-tender Bimanual Exam - Vag & Uterus: uterus non-tender Uterus Palpation: uterus fundus firm (below Umbilicus) Assessment & Plan (1) , delivered, current hospitalization: COMMENT: SM IAL 42 girl Lashay PLAN: Plan s/p PPD # 1 1. routine post delivery care 2. breast feeding- support given 3. rh positive 4. rubella immune 10/12/23 1237 <Electronically signed by Varsha Ramos MD> Cosigner Signature (if applicable): CC: ~ Signed [facility] Work Phone: 1(496) 926-887212-19-2023 Procedure [facility] 10-11-2023 Discharge summary Author Varsha Ramos [facility] October 11, 2023 3:32pm Note Date/Time October 11, 2023 3:32pm [facility] Medical Records Department [address] [place] [address] Instructions for Home/Discharge Instructions 10/11/23 1531 MR#: [id number] Acct: [id number] Name: CLEOPATRA MOTTA Rep #:[id number] : 1995 28 From: Varsha watkins MD PCP: Care Physician,No Primary Status :ADM IN Discharge Instructions Diet Discharge Diet: No restrictions Activity Discharge Activity: Return to Normal Activity, May Not Drive (while taking narcotic pain medications.) and May Shower May resume sexual activity in: 4-6 weeks Dressing / Incision Call your doctor if your incision/area has: Continuous Slow Oozing, Sudden Increased Bleeding, Increased Pain/ Swelling, Increased Redness and Foul Smelling Discharge Follow Up Care Please Follow Up With: Varsha Ramos MD When: Call [phone] to make an appointment with your doctor in 6 weeks. If you had elevated blood pressure or 4th degree laceration, you will need to be seen in 2 weeks. Test Results: Test results from this visit will be discussed in further detail at your follow- up appointment, if applicable. Discharge Plan Admission Admit Date/Time: 10/11/23 09:30 Attending Provider: Varsha Ramos Primary Care Provider: Care Physician,No Primary Discharge Orders/Prescriptions Prescriptions: No Action PNV-[place] 28-1-300 mg capsule PO Referrals / Follow Up: Care Physician,No Primary [Primary Care Provider] - Disposition Disposition (needs filled in before D/C Order can be placed): Home, Self Care 10/11/23 1532<Electronically signed by Varsha Ramos MD>Varsha Ramos MD CC: No Primary Care Physician ~ Signed [facility] Work Phone: 1(228) 977-674612-18-2023 History and physical note Author Varsha Ramos [facility] October 11, 2023 11:43am Note Date/Time October 11, 2023 11:43am [facility] Medical Records Department [address] [place] [address] History & Physical Exam 10/11/23 1142 MR#: [id number] Acct: [id number] Name: CLEOPATRA MOTTA Rep #:[id number] : 1995 28 From: Varsha watkins MD PCP: Coy Physician,No Primary Status :ADM IN Location: [id number] History and Physical Date of Admission: 10/11/23 Vital Signs 08/10/2309:47 10/05/2309:06 10/11/2309:12 10/11/2309:14 Height 5 ft 1 in 5 ft 1 in 5 ft 1 in 5 ft 1 in BP 120/84 H Intake Visit Reasons: 40 WK OB Diesel Inspector Required: No Is patient in pain?: No Allergies No Known Allergies Allergy (Verified 10/11/23 09:38) Medications multivit-min no.71-iron fum 28 mg-folate no.1 1 mg-dha 300 mg capsule (PNV- [place]) cap PO 11/06/22 [History Confirmed 10/11/23] Last Menstrual Period: 01/04/23 Zika: Zika virus screening: Negative : No PFSH PFSH Medical History Complete Surgical History Hx of section Family History Grandfather Diabetes Lung cancer Social History adopted: No household members: spouse and children number of children: 1 current occupational status: unemployed pets and animals: No history of recent travel: No sexually active: Yes Smoking Status: Never smoker alcohol intake: former details: ocasional but not while substance use type: does not use well-balanced diet: daily or most days caffeine: Yes Type: tea Number of servings: 1 eating out: 1-3 times/week during the past year weight has: remained stable what type of physical activity do you participate in: walking frequency: 3-4 times per week duration: 15-30 minutes/day jerrica/yazidism: Holiness seatbelt use: always do you feel safe at home: Yes additional social history: - [employer] History 3 Elective abortions Hx Para 1 Spontaneous abortions 1 Hx # Term Pregnancies Ectopic pregnancies Hx # Pregnancies Multiple births # of living children 1 Past Pregnancies Del. Date Name GA/Weeks Outcome Route Bth Weight Gen Labor Lgth Anesthesia Del Locatn Provider FOB 02/16/21 Jose Antonio 41 live - full term 8#1o z Male spinal [facility] Delivery Date: 02/16/21 Last Updated by: Talita Nagel emergency cs due to decels HPI 40 WK OB Details: CLEOPATRA MOTTA is a 28 year old who presents for routine OB visit. she has had regular ctx the last few hours and clear lof, small vb. FHT 130s good fm OB Visit SREEKANTH Calculator Estimated Delivery Date Method Current WG Current Estimate 10/11/23 LMP (Certain) 40w 0d Other Estimates 10/05/23 Ultrasound #1 40w 6d 10/09/23 Conception 40w 2d Expected Delivery Route/Plan TOLAC by 41 weeks, discussed IOL if favorable patient counseled regarding risks/benefits of trial of labor versus repeat . ACOG/uptodate education given to patient. 70 % likelihood of success per calculator TOLAC consent form signed: yes Specific Issue/Plans Covid status: discussed Flu vaccine: discussed Tdap vaccine: [] Rhogam: [] LARC form signed: [] Problem list reviewed and updated with the most current plan of care details and appropriate orders placed. Relevant counseling for the gestational age provided. Continue routine care and follow up unless otherwise noted in visit notes/problem list details Initial Weight: Not Recorded Date -?-?-?-?-?-?-?-?-?-?-?-?- EGA Weight BP Urine Prot -?-?-?-?-?-?-?-?-?-?-?-?- Glucose FHR FuHt Pres Dilation -?-?-?-?-?-?-?-?-?-?-?-?- Effaced St Visit Note 03/17/23-?-?-?-?-?-?-?-?-?-?-?-?- 10w 2d 129 lb 2 oz 102/84689/69 -?-?-?-?-?-?-?-?-?-?-?-?- 150 -?-?-?--?-?-?-?-?-?-?-?-?- KW- SREEKANTH adjusted. JV scanned. 04/16/23-?-?-?-?-?-?-?-?-?-?-?-?- 14w 4d 129 lb 6 oz 122/68 Negative -?-?-?-?-?-?-?-?-?-?-?-?- Negative 145 -?-?-?-?-?-?-?-?-?-?-?-?- KW- PRR. no vb/cramping. US scheduled. having some vaginal irritation-culture done. 05/10/23-?-?-?-?-?-?-?-?-?-?-?-?- 18w 0d 130 lb 2 oz 111/72 Negative -?-?-?-?-?-?-?-?-?-?-?-?- Negative 145 -?-?-?-?-?-?-?-?-?-?-?-?- SM- no vb lof some fm, dicsussion of TOLAC 06/25/23-?-?-?-?-?-?-?-?-?-?-?-?- 24w 4d 136 lb 99/53 -?-?-?-?-?-?-?-?-?-?-?-?- 145 25 -?-?-?-?-?-?-?-?-?-?-?-?- SM- no vb lof ctx feels some lower pelvic pressure 07/26/23-?-?-?-?-?-?-?-?-?-?-?-?- 29w 0d 139 lb 8 oz 95/53 Trace -?--?-?-?-?-?-?-?-?-?-?-?- Negative 142 28 -?-?-?-?-?-?-?-?-?-?-?-?- KW-no lof/vb/ctx. good fm. desires TOLAC. no concerns today 08/10/23-?-?-?-?-?-?-?-?-?-?-?-?- 31w 1d 142 lb 8 oz 103/60 Negative -?-?-?-?-?-?-?-?-?-?-?-?- Negative 150 31 -?-?-?-?-?-?-?-?-?-?-?-?- KW-no lof/vb/ctx. good fm. no concerns today. 08/24/23-?-?-?-?-?-?-?-?-?-?-?-?- 33w 1d 148 lb 2 oz 97/63 Negative -?-?-?-?-?-?-?-?-?-?-?-?- Negative 160 33 -?-?-?-?-?-?-?-?-?-?-?-?- KW- no lof/vb/ctx. good fm. going [place]-leaving on sat. travel precautions 09/13/23-?-?-?-?-?-?-?-?-?-?-?-?- 36w 0d 149 lb 4 oz 103/63 Negative -?-?-?-?-?-?-?-?-?-?-?-?- Negative 150 35 Cephalic 1-?-?-?-?-?-?-?-?-?- ?-?-?- 50 -2 JV- TOLAC consent signed. gbs collected. cx very soft today. labor precautions discussed. 09/21/23-?-?-?-?-?-?-?-?-?-?-?-?- 37w 1d 147 lb 8 oz 96/59 Negative -?-?-?-?-?-?-?-?-?-?-?-?- Negative 160 35 Cephalic 1-?-?-?-?-?-?-?-?-?- ?-?-?- SM- no vb lof good fm now was dec over the weekend, discussed exp mgt vs IOL by 41 weeks or rltcs if unfavorable. nj NEWELL ordered today 09/27/23-?-?-?-?-?-?-?-?-?-?-?-?- 38w 0d 147 lb 2 oz 113/66 Negative -?-?-?-?-?-?-?-?-?-?-?-?- Negative 145 37 Cephalic -?-?-?-?-?-?-?-?-?-?-?-?- JV- pt declines exam today. looking back on dating, she thinks that we changed her due date by mistake and it looks as if she is correct. SREEKANTH is 10/11. dates corrected. 10/05/23-?-?-?--?-?-?-?-?-?-?-?-?- 39w 1d 149 lb 2 oz 100/65 Negative -?-?-?-?-?-?-?-?-?-?-?-?- Negative 145 38 Cephalic 3-?-?-?-?-?-?-?-?-?- ?-?-?- 60 -1 Sm- no vb lof good fm no regular ctx discussed IOL next week if no spontaneous ACOG First Trimester First Trimester: Desire for , Alcohol, Illicit/Recreational Drug/Substance Use, Intimate Partner Violence, Barriers to care, Unstable Housing, Communication Barriers, Environmental/Work Hazards, Anticipated Course of Care, Toxoplasmosis Precations, Use of Any medications, Sexual activity, Exercise, Dental Care, Sauna/Hot tub use, Seat Belt use, Childbirth classes/Hospital facilities, , Travel, Indications for Ultrasound and Screening for Aneuploidy Second Trimester Second Trimester: Signs and Symptoms of Labor, Selecting a care provider, Reproductive Life Planning & Contreception, Care Planning, Depression/Anxiety and Intimate Partner Violence; Discussed Tobacco Cessation Third Trimester Third Trimester: Pain Management Plans, Labor support person(s), Immediate Larc, Signs and Symptoms of Preeclampsia, Feeding Yes , [place] Education and Family Medical Leave or Disability Forms ROS Const Reports system reviewed and no additional complaints, except as documented Card Reports system reviewed and no additional complaints, except as documented Resp Reports system reviewed and no additional complaints, except as documented GI Reports system reviewed and no additional complaints, except as documented and Reports nausea Reports system reviewed and no additional complaints, except as documented Musc Reports system reviewed and no additional complaints, except as documented Exam Const General: cooperative, healthy appearing, comfortable and anxious HENMT Head: normal to inspection Nose: external nose normal Face and sinus: normal facial exam Neck Neck: normal visual inspection, full ROM and no lymphadenopathy Thyroid: thyroid normal Chest Chest palpation & inspection: normal inspection of the chest Resp Effort & Inspection: normal respiratory effort GI Inspection: normal to inspection Palpation: soft and other (gravid uterus) Other: vertex and appropriate size for gestational age Other: Cervical Exam: /- forebag intact Extrem General: pedal edema Coding Level of Care Code OB Routine Diagnoses Hx of section Z98.891 Anemia D64.9 Supervision of high risk , antepartum O09.90 40 weeks gestation of Z3A.40 Weeks of gestation: 40 weeks Active labor at term Assessment and Plan Assessment and Plan (1) Hx of section: Status: Acute Comment: emergency due to decels at 41 weeks in [facility], desires TOLAC. records requested (2) Anemia: Status: Acute Comment: encouraged Fe use (3) Supervision of high risk , antepartum: Status: Acute Comment: PRR , SREEKANTH 10/11/23 surprise PC Jose Antonio, Dandre (4) : Status: Acute Qualifiers: Weeks of gestation: 40 weeks Qualified Code(s): Z3A.40 - 40 weeks gestation of Comment: GBS neg, anatomy nl, declines ntd genetic & carrier testing. (5) Active labor at term: Status: Acute Plan Patient presents IAL, plan expectant management for , pitocin/AROM of forebag PRN if needed. Pain management: open to epidural if needed. GBS neg. Management of any complications: TOLAC I have reviewed the [facility], [facility] and made any clinically relevant updates. UPDATE- I have seen the patient and performed any clinically relevant updates to the history and physical exam. Varsha Ramos MD 10/11/23 1143 <Electronically signed by Varsha Ramos MD> Cosigner Signature (if applicable): CC: Dr. Varsha Ramos MD; No Primary Care Physician~ Signed [facility] Work Phone: [phone] [facility] Medical Records Department [address] [place] [address] History Physical Exam 10/11/23 1142 MR#: [id number] Acct: [id number] Name: CLEOPATRA MOTTA Rep #: [id number] : 1995 28 From: Varsha Ramos MD PCP: Care Physician,No Primary Status:ADM IN Location: IP660-4 History and Physical Date of Admission: 10/11/23 Vital Signs 08/10/2309:47 10/05/2309:06 10/11/2309:12 10/11/2309:14 Height 5 ft 1 in 5 ft 1 in 5 ft 1 in 5 ft 1 in BP 120/84 H Intake Visit Reasons: 40 WK OB Diesel Inspector Required: No Is patient in pain?: No Allergies No Known Allergies Allergy (Verified 10/11/23 09:38) Medications multivit-min no.71-iron fum 28 mg-folate no.1 1 mg-dha 300 mg capsule (PNV- [place]) cap PO 11/06/22 [History Confirmed 10/11/23] Last Menstrual Period: 01/04/23 Zika: Zika virus screening: Negative : No PFSH PFSH Medical History Complete Surgical History Hx of section Family History Grandfather Diabetes Lung cancer Social History adopted: No household members: spouse and children number of children: 1 current occupational status: unemployed pets and animals: No history of recent travel: No sexually active: Yes Smoking Status: Never smoker alcohol intake: former details: ocasional but not while substance use type: does not use well-balanced diet: daily or most days caffeine: Yes Type: tea Number of servings: 1 eating out: 1-3 times/week during the past year weight has: remained stable what type of physical activity do you participate in: walking frequency: 3-4 times per week duration: 15-30 minutes/day jerriac/yazidism: Holiness seatbelt use: always do you feel safe at home: Yes additional social history: - [employer] History 3 Elective abortions Hx Para 1 Spontaneous abortions 1 Hx # Term Pregnancies Ectopic pregnancies Hx # Pregnancies Multiple births # of living children 1 Past Pregnancies Del. Date Name GA/Weeks Outcome Route Bth Weight Infant Gen Labor Lgth Anesthesia Del Locatn Provider FOB 02/16/21 Jose Antonio 41 live - full term 8#1oz Male sp inal [facility] Delivery Date: 02/16/21 Last Updated by: Talita Nagel emergency cs due to decels HPI 40 WK OB Details: CLEOPATRA MOTTA is a 28 year old who presents for routine OB visit. she has had regular ctx the last few hours and clear lof, small vb. FHT 130s good fm OB Visit SREEKANTH Calculator Estimated Delivery Date Method Current WG Current Estimate 10/11/23 LMP (Certain) 40w 0d Other Estimates 10/05/23 Ultrasound #1 40w 6d 10/09/23 Conception 40w 2d Expected Delivery Route/Plan TOLAC by 41 weeks, discussed IOL if favorable patient counseled regarding risks/benefits of trial of labor versus repeat . ACOG/uptodate education given to patient. 70 % likelihood of success per calculator TOLAC consent form signed: yes Specific Issue/Plans Covid status: discussed Flu vaccine: discussed Tdap vaccine: [] Rhogam: [] LARC form signed: [] Problem list reviewed and updated with the most current plan of care details and appropriate orders placed. Relevant counseling for the gestational age provided. Continue routine care and follow up unless otherwise noted in visit notes/problem list details Initial Weight: Not Recorded Date -???-???-???-???-???-???-???-???-???-???-???-???- EGA Weight BP Urine Prot -???-???-???-???-???-???-???-???-???-???-???-???- Glucose FHR FuHt Pres Dilation -???-???-???-???-???-???-???-???-???-???-???-???- Effaced St Visit Note 03/17/23-???-???-???-???-???-???-???-???-???-???-???-???- 10w 2d 129 lb 2 oz 102/59529/69 -???-???-???-???-???-???-???-???-???-???-???-???- 150 -???-???-???-???-???-???-???-???-???-???-???-???- KW- SREEKANTH adjusted. JV scanned. 04/16/23-???-???-???-???-???-???-???-???-???-???-???-???- 14w 4d 129 lb 6 oz 122/68 Negative -???-???-???-???-???-???-???-???-???-???-???-???- Negative 145 -???-???-???-???-???-???-???-???-???-???-???-???- KW- PRR. no vb/cramping. US scheduled. having some vaginal irritation-culture done. 05/10/23-???-???-???-???-???-???-???-???-???-???-???-???- 18w 0d 130 lb 2 oz 111/72 Negative -???-???-???-???-???-???-???-???-???-???-???-???- Negative 145 -???-???-???-???-???-???-???-???-???-???-???-???- SM- no vb lof some fm, dicsussion of TOLAC 06/25/23-???-???-???-???-???-???-???-???-???-???-???-???- 24w 4d 136 lb 99/53 -??? (more content not included)...[facility] Diagnosis Onset Date Resolution Status Complete acute [facility] Work Phone: evaluation note* Diagnosis Onset Date Resolution Status Anemia acute Hx of section acute acute Supervision of high risk , antepartum acute [facility] Work Phone: evaluation note* Diagnosis Onset Date Resolution Status Anemia acute Hx of section acute acute Supervision of high risk , antepartum acute Anemia acute Hx of section acute acute Supervision of high risk , antepartum acute [facility] Work Phone: Evaluation note* Diagnosis Onset Date Resolution Status Anemia acute Hx of section acute acute Supervision of high risk , antepartum acute Anemia acute Hx of section acute acute Supervision of high risk , antepartum acute Anemia acute Hx of section acute acute Supervision of high risk , antepartum acute [facility] Work Phone: evaluation note* Diagnosis Onset Date Resolution Status Anemia acute Hx of section acute acute Supervision of high risk , antepartum acute Anemia acute Hx of section acute acute Supervision of high risk , antepartum acute Anemia acute Hx of section acute acute Supervision of high risk , antepartum acute Anemia acute Hx of section acute acute Supervision of high risk , antepartum acute Anemia acute Hx of section acute acute Supervision of high risk , antepartum acute [facility] Work Phone: evaluation note* Diagnosis Onset Date Resolution Status Anemia acute Hx of section acute acute Supervision of high risk , antepartum acute Anemia acute Hx of section acute acute Supervision of high risk , antepartum acute Anemia acute Hx of section acute acute Supervision of high risk , antepartum acute Anemia acute Hx of section acute acute Supervision of high risk , antepartum acute Anemia acute Hx of section acute acute Supervision of high risk , antepartum acute Anemia acute Hx of section acute acute Supervision of high risk , antepartum acute Uterine size-date discrepancy, third trimester acute [facility] Work Phone: evaluation note* Diagnosis Onset Date Resolution Status Anemia resolved Hx of section resol carlos resolved Supervision of high risk , antepartum resolved Anemia resolved Hx of section resol carlos resolved Supervision of high risk , antepartum resolved Anemia resolved Hx of section resol carlos resolved Supervision of high risk , antepartum resolved Anemia resolved Hx of section resol carlos resolved Supervision of high risk , antepartum resolved Anemia resolved Hx of section resol carlos resolved Supervision of high risk , antepartum resolved Anemia resolved Hx of section resol carlos resolved Supervision of high risk , antepartum resolved Uterine size-date discrepancy, third trimester resolved Anemia resolved Hx of section resol carlos resolved Supervision of high risk , antepartum resolved Uterine size-date discrepancy, third trimester resolved Anemia resolved Hx of section resol carlos resolved Supervision of high risk , antepartum resolved Uterine size-date discrepancy, third trimester resolved Active labor at term resolve d Anemia resolved Hx of section resol carlos resolved Supervision of high risk , antepartum resolved , delivered, current hospitalization acute Active labor at term resolve d Anemia resolved Hx of section resol carlos resolved Supervision of high risk , antepartum resolved Uterine size-date discrepancy, third trimester resolved [facility] Work Phone: Evaluation note* Diagnosis Onset Date Resolution Status Anemia resolved Hx of section resol carlos resolved Supervision of high risk , antepartum resolved Anemia resolved Hx of section resol carlos resolved Supervision of high risk , antepartum resolved Anemia resolved Hx of section resol carlos resolved Supervision of high risk , antepartum resolved Anemia resolved Hx of section resol carlos resolved Supervision of high risk , antepartum resolved Uterine size-date discrepancy, third trimester resolved Anemia resolved Hx of section resol carlos resolved Supervision of high risk , antepartum resolved Uterine size-date discrepancy, third trimester resolved Anemia resolved Hx of section resol carlos resolved Supervision of high risk , antepartum resolved Uterine size-date discrepancy, third trimester resolved Active labor at term resolve d Anemia resolved Hx of section resol carlos resolved Supervision of high risk , antepartum resolved , delivered, current hospitalization acute Active labor at term resolve d Anemia resolved Hx of section resol carlos resolved Supervision of high risk , antepartum resolved Uterine size-date discrepancy, third trimester resolved Routine Follow-Up noneactive [facility] Work Phone: Chief Complaint and Reason for Visit Chief Complaint SUPERVISION OF PREGN LANEY follow up SAB u/s 11/10/22 Reason for Visit Complete Chief Complaint SUPERVISION OF PREGN LANEY follow up SAB u/s 11/10/22 EORDER Reason for Visit Complete Chief Complaint NOB LMP: 01/04 , ok p er KW Reason for Visit Anemia Hx of section Supervision of high risk , antepartum Chief Complaint NOB LMP: 01/04 , ok p er KW 16 WK OB Encounter for supervision of normal , uns Reason for Visit Anemia Hx of section Supervision of high risk , antepartum Anemia Hx of section Supervision of high risk , antepartum Chief Complaint NOB LMP: 01/04 , ok p er KW 16 WK OB Encounter for supervision of normal , uns 20 WK OB ANATOMY SCAN Reason for Visit Anemia Hx of section Supervision of high risk , antepartum Anemia Hx of section Supervision of high risk , antepartum Anemia Hx of section Supervision of high risk , antepartum Chief Complaint 16 WK OB Encounter for supervision of normal , uns 20 WK OB ANATOMY SCAN 24 WK OB, pt req due to vacation Reason for Visit Anemia Hx of section Supervision of high risk , antepartum Anemia Hx of section Supervision of high risk , antepartum Anemia Hx of section Supervision of high risk , antepartum Chief Complaint 24 WK OB, pt req due to vacation 30 WK 32 WK OB 34 WK OB 36 WK OB Reason for Visit Anemia Hx of section Supervision of high risk , antepartum Anemia Hx of section Supervision of high risk , antepartum Anemia Hx of section Supervision of high risk , antepartum Anemia Hx of section Supervision of high risk , antepartum Anemia Hx of section Supervision of high risk , antepartum Chief Complaint 24 WK OB, pt req due to vacation 30 WK 32 WK OB 34 WK OB 36 WK OB 37 WK OB UTERINE SIZE-DATE DISCREPANCY Reason for Visit Anemia Hx of section Supervision of high risk , antepartum Anemia Hx of section Supervision of high risk , antepartum Anemia Hx of section Supervision of high risk , antepartum Anemia Hx of section Supervision of high risk , antepartum Anemia Hx of section Supervision of high risk , antepartum Anemia Hx of section Supervision of high risk , antepartum Uterine size-date discrepancy, third trimester Chief Complaint 24 WK OB, pt req due to vacation 30 WK 32 WK OB 34 WK OB 36 WK OB 37 WK OB UTERINE SIZE-DATE DISCREPANCY 38 WK OB 39 WK OB 40 WK OB VAGINAL DELIVERY LABOR AND DELIVERY VAGINAL DELIVERY Reason for Visit Anemia Hx of section Supervision of high risk , antepartum Anemia Hx of section Supervision of high risk , antepartum Anemia Hx of section Supervision of high risk , antepartum Anemia Hx of section Supervision of high risk , antepartum Anemia Hx of section Supervision of high risk , antepartum Anemia Hx of section Supervision of high risk , antepartum Uterine size-date discrepancy, third trimester Anemia Hx of section Supervision of high risk , antepartum Uterine size-date discrepancy, third trimester Anemia Hx of section Supervision of high risk , antepartum Uterine size-date discrepancy, third trimester Active labor at term Anemia Hx of section Supervision of high risk , antepartum , delivered, current hospitalization Active labor at term Anemia Hx of section Supervision of high risk , antepartum Uterine size-date discrepancy, third trimester Chief Complaint 32 WK OB 34 WK OB 36 WK OB 37 WK OB UTERINE SIZE-DATE DISCREPANCY 38 WK OB 39 WK OB 40 WK OB VAGINAL DELIVERY LABOR AND DELIVERY VAGINAL DELIVERY visit (obstetrics) PAP Reason for Visit Anemia Hx of section Supervision of high risk , antepartum Anemia Hx of section Supervision of high risk , antepartum Anemia Hx of section Supervision of high risk , antepartum Anemia Hx of section Supervision of high risk , antepartum Uterine size-date discrepancy, third trimester Anemia Hx of section Supervision of high risk , antepartum Uterine size-date discrepancy, third trimester Anemia Hx of section Supervision of high risk , antepartum Uterine size-date discrepancy, third trimester Active labor at term Anemia Hx of section Supervision of high risk , antepartum , delivered, current hospitalization Active labor at term Anemia Hx of section Supervision of high risk , antepartum Uterine size-date discrepancy, third trimester Routine Follow-Up Family History No Family History Records Found Relationship Condition Age at Onset Recorded Date/T nalini grandfather Diabetes mellitus Unknown Malignant neoplasm of lung Unknown Advance Directives No Advanced Directives Records Found Advance Directive Response Recorded Date/ Time Living Will No October 11 10:04am 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 Teresa Short DO Attending Provider Activ e Team Status: Inactive Member Role Status Dates No Primary Care Physician Primary Care Provider Active Dr. Varsha Ramos MD Attending Provider Active Team Status: Active Member Role Status Dates No Primary Care Physician Primary Care Provider Active Dr. Teresa Short DO Attending Provider Activ e Team Status: Inactive Member Role Status Dates No Primary Care Physician Primary Care Provider Active Dr. Teresa Short DO Attending Provider Activ e Team Status: Active Member Role Status Dates No Primary Care Physician Primary Care Provider Active Dr. Teresa Short DO Attending Provider, Refe rring Provider Active Team Status: Inactive Member Role Status Dates No Primary Care Physician Primary Care Provider Active Dr. Teresa Short DO Attending Provider, Refe rring Provider Active Team Status: Inactive Member Role Status Dates No Primary Care Physician Primary Care Provider, Refer ring Provider Active Angelica Beaulieu CNM Attending Provider Active Team Status: Inactive Member Role Status Dates No Primary Care Physician Primary Care Provider Active Angelica Beaulieu CNM Attending Provider, Referring Pro vider Active Team Status: Inactive Member Role Status Dates No Primary Care Physician Primary Care Provider, Refer ring Provider Active Dr. Varsha Ramos MD Attending Provider Active Team Status: Inactive Member Role Status Dates No Primary Care Physician Primary Care Provider Active Dr. Varsha Ramos MD Attending Provider, Referr ing Provider Active Team Status: Active Member Role Status Dates No Primary Care Physician Primary Care Provider Active Arianne Vaz CNM Admit Provider, Other Provider A ctive Dr. Varsha Ramos MD Attending Provider Active Team Status: Active Member Role Status Dates No Primary Care Physician Primary Care Provider Active Arianne Vaz CNM Admit Provider Active Dr. Varsha Ramos MD Attending Pr ovider, Referring Provider, Other Provider Active Team Status: Inactive Member Role Status Dates No Primary Care Physician Primary Care Provider Active Arianne Vaz CNM Admit Provider Active Dr. Varsha Ramos MD Attending Provider, Referr ing Provider Active Goals (unrecognized section and content) Goals may be documented in a n alternate sectionGoals may be documented in an alternate sectionGoals may be documented in an alternate sectionGoals may be documented in an alternate sectionGoals may be documented in an alternate sectionGoals may be documented in an alternate sectionGoals may be documented in an alternate sectionGoals may be documented in an alternate sectionGoals may be documented in an alternate section INFORMATION SOURCE (unrecogn ized section and content) DATE CREATED AUTHOR 01/07/2024 [facility] FOR RECORDS PERTAINING TO PATIENTS WHO ARE OR HAVE BEEN ENROLLED IN A CHEMICAL DEPENDENCY/SUBSTANCEABUSE PROGRAM, SOME INFORMATION MAY BE OMITTED. This clinical summary was aggregated from multiple sources. Caution should be exercised in using it in the provision of clinical care. This summary normalizes information from multiple sources, and as a consequence, information in this document may materially change the coding, format and clinical context of patient data. In addition, data may be omitted in some cases. CLINICAL DECISIONS SHOULD BE BASED ON THE PRIMARY CLINICAL RECORDS. [email or web address]. provides no warranty or guarantee of the accuracy or completeness of information in this document.
[2025-10-12 16:47] LABS: Hematocrit 31.5 % (37-47); Hemoglobin 10.9 g/dL (12.0-15.0); Immature Granulocytes Count 0.040 X10^3/uL (0.0-0.0); Mean Corp Hgb Conc 34.6 g/dL (32-36); Mean Corpuscular Volume 86.1 fL (81-99); Mean Platelet Vol. 11.1 fl (6.2-12.0); NRBC Flagged by Analyzer 0 % (0-5); Platelet Count 299 K/mm3 (150-450); RBC Distribution Width CV 12.0 % (11.6-14.6); RBC Distribution Width SD 38.4 fl (35.1-43.9); Red Blood Count 3.66 M/mm3 (4.2-5.4); White Blood Count 7.5 K/mm3 (4.4-11.0)
[2025-10-12 18:41] LABS: HIV Nonreactive (Nonreactive); Hepatitis B Surface Antigen Nonreactive (Nonreactive); Hepatitis C Antibody Nonreactive (Nonreactive); Syphilis Antibodies Nonreactive (Nonreactive)
[2025-10-15 17:08] LABS: Chlamydia By Nucleic Acid AMP Negative (Negative); Gonococcus By Nucleic Acid AMP Negative (Negative)
== END | disposition home or self-care (01) ==
PROVIDERS: Student in an Organized Health Care Education/Training Program; Visit Provider Obstetrics & Gynecology
DX: O09.90 Supervision of high risk pregnancy, unspecified, unspecified trimester (principal); Z3A.00 Weeks of gestation of pregnancy not specified
CPT/HCPCS: 36415; 85025; 86703; 86762; 86780; 86803; 86850; 86900; 86901; 87086; 87340; 87491; 87591